=== PATIENT | male | born 1970 | race Caucasian/White ===

== ENCOUNTER 2022-01-27 08:44 | Inpatient (IN) | payer MEDICARE, SELFPAY ==
[2022-01-27] VITALS (145 sets, daily range): BP systolic 144–251; BP diastolic 77–156; PULSE 80–115; RESP 15–29; TEMP 36.5–36.8; O2SAT 89–98; BMI 27.1
--- NOTE | 2022-01-27 08:58 | W.ED.NEUROSD ---
HPI - Neuro Symptoms/Deficit General: Chief Complaint: ER Hold Stated Complaint: Weakness, Slurred speech, Unstable Time Seen by Provider: 01/27/22 08:47 Source: patient Mode of arrival: ambulatory Limitations: no limitations History of Present Illness: 51-year-old male presents emergency room he is concerned that his stroke is reporting weakness in his left side and some tremors and shaking additionally states he 7 difficulty with word finding. Began yesterday at around 5:30 PM his is concerned is persistent he feels like is actually improved some. On initial exam his stroke score at best is 2 giving him a point for some very slight movement in his right arm with evaluation for arm drift and the report by his that he is still slurring his speech some. The remainder of his exam is normal and there is no evidence of any focal deficit. He has normal cerebellar function with normal [id number] and rapid alternating movements, normal visual pham sensation etc. Patient denies any recent new medications he is on no prescription medications but is on multiple self prescribed nutraceutical medications. Onset (ago): hour(s) Time: 08:44 Last Observed Normal: 17:30 Timing confirmed by: spouse Location: speech, right arm and right leg Severity: mild Quality: numb and tingling Relieving factors: none Exacerbating factors: none Context: gradual onset Associated symptoms: Reports weakness; Deny chest pain, cough, diaphoresis, fevers/chills, headache(s), anorexia, malaise, nausea, seizures, syncope, tingling, vertigo or vomiting Treatments Prior to Arrival: none Review of Systems Const: Denies: fever(s), chills, fatigue, malaise or diaphoresis ENMT: Denies: throat pain, ear or mastoid pain, nasal discharge or nasal congestion Card: Denies: chest pain, palpitations, irregular heart rhythm or syncope Resp: Denies: dyspnea, productive cough or non-productive cough GI: Denies: nausea or vomiting : Denies: flank pain, dysuria, urinary frequency or urinary urgency Skin/Breast: Denies: rash or pruritus Neuro: Denies: headache(s) or vertigo [facility] ED PFSH: Medical History Hypertension Family History Other Hypertension Social History Smoking and tobacco status: never smoked Alcohol intake: never NIH stroke score NIHSS: Level Of Consciousness - 1a: 0 Level Of Consciousness Questions - 1b: Both Correct Level Of Consciousness Commands - 1c: Both Correct Best Gaze - 2: Normal Visual Pham - 3: No Visual Loss Facial Palsy - 4: Normal Motor Arm Right - 5: No Drift Motor Arm Left - 5: No Drift Motor Leg Right - 6: No Drift Motor Leg Left - 6: No Drift Limb Ataxia - 7: Absent Sensory - 8: Mild To Moderate Loss Best Language - 9: No Aphasia Dysarthia - 10: Mild/Moderate Dysarthia Extinction And Inattention - 11: 0 Score: Total Score: 2 Physical Exam Const: COMMON NORMALS: no acute distress GENERAL APPEARANCE: cooperative and comfortable ORIENTATION/CONSCIOUSNESS: Yes awake, Yes oriented to person, Yes oriented to place and Yes oriented to time HENMT: COMMON NORMALS: normocephalic, atraumatic, hearing grossly normal bilaterally, external ears normal, EAC's normal, TM's normal bilaterally, Normal nasal mucous membranes and turbinates present, moist oral mucous membranes and oropharynx normal HEAD & SCALP: normocephalic and atraumatic NOSE: Normal nasal mucous membranes and turbinates present EXTERNAL EAR: Yes external ears normal EXTERNAL AUDITORY CANAL: EAC's normal TYMPANIC MEMBRANE: TM's normal bilaterally Eye: COMMON NORMALS: Equal, round and reactive pupils present, EOMs intact bilaterally, conjunctivae normal and no scleral icterus CONJUNCTIVA: Yes conjunctivae normal PUPIL: Yes Equal, round and reactive pupils present Neck/C-Spine: COMMON NORMALS: full ROM, no lymphadenopathy, supple and no JVD Lymph: LYMPHATIC: no lymphadenopathy noted and no lymphedema noted Resp: COMMON NORMALS: normal respiratory effort, No retractions, No use of accessory muscles and clear to auscultation bilaterally AUSCULTATION: clear to auscultation bilaterally Cardio: COMMON NORMALS: no JVD, regular rate, regular rhythm and No murmurs present (Cardio) RATE: regular rate RHYTHM: regular rhythm GI: COMMON NORMALS: Soft to palpation and No hepatosplenomegaly present AUSCULTATION: Yes normoactive bowel sounds PALPATION: Yes Soft to palpation, No Tenderness to palpation present (GI), No Guarding due to palpation present (GI) and Yes No hepatosplenomegaly present Extremity: COMMON NORMALS: normal to inspection, capillary refill normal, no clubbing, cyanosis or edema, no calf tenderness and no pedal edema Neuro: SENSORIUM/ORIENTATION: Yes oriented to person, Yes oriented to place and Yes oriented to time Skin: COMMON NORMALS: no rashes or lesions noted GENERAL SKIN EXAM: no rashes or lesions noted Course Vital Signs: Vital signs: Vital Signs Temperature 97.7 F 01/27/22 08:51 Pulse Rate 82 01/27/22 14:39 Respiratory Rate 28 H 01/27/22 14:15 Blood Pressure 178/96 01/27/22 14:39 Pulse Oximetry 93 01/27/22 14:15 Oxygen Delivery Me thod 01/27/22 08:51 MDM - Neuro Symptoms/Deficit Medical Decision Making Clinical I do not believe this patient is obstructed an incidental finding with looks like a calcified hemangioma I do not think is related to his symptoms. Discussed at length with neurology on-call for Elyssa as well as with radiology we all agree. I think he is having*his symptoms from his acute renal failure. This is new near as I can tell his renal function has been normal in the past per his report as well as that of his 's. His blood pressure is also markedly elevated we did start him on nicardipine which improved his blood pressure but was not well controlled while in the emergency room did have discussed with nephrology and hospitalist services as well as on-call doctor for Elyssa Lal. Elyssa did not feel any further evaluation needed to be done emergently. Patient be admitted to the ICU for accelerated blood pressure and acute renal failure Medical Records I reviewed the patient's medical records. Lab Data I reviewed the patient's lab results. : 01/27/22 09:29 01/27/22 09:[address] 01/27/22 08:59 IMPRESSION: 1. Mixed density anterior LEFT parasagittal mass measures 2.9 x 2.5 cm and extends over length of 2.8 cm. Increased density is probably calcification within a meningioma. Favor this is an extra-axial mass. No edema within the adjacent brain or sulcal effacement. Recommend follow-up MRI brain with and without contrast to better evaluate for a dural tail and extra-axial position. 2. Mild small vessel ischemic disease. Laboratory Results WBC 10.8 10^3/uL (4.0-10.0) H 01/27/22 09: RBC 3.82 10^6/uL (4.1-5.3) L 01/27/22 09: Hgb 11.1 g/dL (11.7-16.6) L 01/27/22 09: Hct 33.0 % (42.0-52.0) L 01/27/22 09: MCV 86.4 fl (80-94) 01/27/22 09: MCH 29.1 pg (28.0-34.0) 01/27/22 09: MCHC 33.6 g/dL (30.0-36.0) 01/27/22: RDW 14.1 % (12.1-15.1) 01/27/22: Plt Count 184 10^3/cmm (130-400) 01/27/22 09: MPV 10.1 fL (7.4-10.4) 01/27/22 09: Neut % (Auto) 85.7 % 01/27/22 09: Lymph % (Auto) 7.2 % 01/27/22: King % (Auto) 5.5 % 01/27/22 09: Eos % (Auto) 0.7 % 01/27/22: Baso % (Auto) 0.4 % 01/27/22: Neut # (Auto) 9.23 10^3/uL (1.8-7.7) H 01/27/22 09: Lymph # (Auto) 0.8 10^3/uL (0.8-4.8) 01/27/22 09: King # (Auto) 0.6 10^3/uL (0.2-0.9) 01/27/22: Eos # (Auto) 0.1 10^3/uL (0.0-0.8) 01/27/22 09: Baso # (Auto) 0.0 10^3/uL (0.0-0.1) 01/27/22 09: Nucleated RBC % (auto) 0 % 01/27/22 09:29 Nucleated RBCs # 0.0 /100WBC 01/27/22 09:29 PT 13.90 SECONDS (12.1-14.9) 01/27/22 09:29 INR 1.04 (0.8-1.2) 01/27/22 09:29 APTT 29.0 SECONDS (23.9-36.7) 01/27/22 09:29 Sodium 138 mmol/L (136-145) 01/27/22 09:29 Potassium 3.5 mmol/L (3.5-5.1) 01/27/22 09:29 Chloride 99 mmol/L (98-107) 01/27/22 09:29 Carbon Dioxide 22 mmol/L (22-29) 01/27/22 09:29 Anion Gap 20.5 (5-19) H 01/27/22 09:29 BUN 72 mg/dL (6-20) H 01/27/22 09:29 Creatinine 6.7 mg/dL (0.7-1.2) H* 01/27/22 09:29 GFR Calculation 8.7 mL/min (90-130) L 01/27/22 09:29 Glucose 107 mg/dL (65-115) 01/27/22 09: POC Glucose 107 mg/dL (70-110) 01/27/22 09:07 Calculated Osmolality 308 mOsm/kg (285-295) H 01/27/22 09:29 Calcium 9.0 mg/dL (8.5-10.5) 01/27/22 09:29 Phosphorus 5.6 mg/dL (2.5-4.5) H 01/27/22 09:27 Total Bilirubin 0.5 mg/dL (0.15-1.2) 01/27/22 09:29 AST 20 U/L (0-40) 01/27/22 09:29 ALT 17 U/L (0-41) 01/27/22 09:29 Alkaline Phosphatase 118 U/L (40-130) 01/27/22 09:29 Creatine Kinase 173 U/L (39-308) 01/27/22 09:29 Total Protein 6.7 g/dL (6.6-8.7) 01/27/22 09:29 Albumin 3.8 g/dL (3.5-5.2) 01/27/22 09:29 Globulin 2.9 g/dL (1.3-4.6) 01/27/22 09:29 TSH 2.39 uIU/mL (0.27-4.20) 01/27/22 09:24 Urine Color Yellow (Yellow) 01/27/22 11:14 Urine Appearance Clear (CLEAR) 01/27/22 11:14 Urine pH 6 (5-7) 01/27/22 11:14 Ur Specific [place] 1.010 (1.005-1.030) 01/27/22 11:14 Urine Protein 3+ (Negative) H 01/27/22 11:14 Urine Glucose (UA) Norm (Normal) 01/27/22 11:14 Urine Ketones 1+ (Negative) H 01/27/22 11:14 Urine Blood 2+ (Negative) H 01/27/22 11:14 Urine Nitrate Negative (Negative) 01/27/22 11:14 Urine Bilirubin Neg (Negative) 01/27/22 11:14 Urine Urobilinogen Norm mg/dL (Negative) 01/27/22 11:14 Ur Leukocyte Esterase Negative (Negative) 01/27/22 11:14 Urine RBC 0-4 /hpf (0-2) H 01/27/22 11:14 Urine WBC 0-4 /hpf (0-5) H 01/27/22 11:14 Ur Squamous Epith Cells 0-4 /hpf (0-5) H 01/27/22 11:14 Amorphous Sediment Not Reportable 01/27/22 11:14 Urine Bacteria None /hpf (NONE) 01/27/22 11:14 Urine Opiates Screen Negative ng/mL (Negative) 01/27/22 11:14 Ur Barbiturates Screen Negative ng/mL (Negative) 01/27/22 11:14 Ur Phencyclidine Scrn Negative ng/mL (Negative) 01/27/22 11:14 Ur Amphetamines Screen Negative ng/mL (Negative) 01/27/22 11:14 U Benzodiazepines Scrn Negative ng/mL (Negative) 01/27/22 11:14 Urine Cocaine Screen Negative ng/mL (Negative) 01/27/22 11:14 U Marijuana (THC) Screen Negative ng/mL (Negative) 01/27/22 11:14 Complement C3 104 mg/dL (90-180) 09/02/22 09:27 Complement C4 26 mg/dL (10-40) 01/27/22 09:27 Discharge Plan Discharge Patient Disposition: Admitted As Inpatient Admit Provider: Santi Altamirano Clinical Impression: KEL (acute kidney injury), Accelerated hypertension Condition: Stable Coding Level of Care Code ED Meat Stocker for Chg Fwd Exam Comprehensive
--- NOTE | 2022-01-27 08:59 | CT_ITS ---
WS: [id number] CT HEAD NONCONTRAST HISTORY: Symptoms of Acute Stroke TECHNIQUE: Contiguous axial imaging performed through the brain in 2.5 mm imaging. Bone and soft tiss ue windows. Sagittal and coronal reformats reviewed. All CT scans at [facility] use at least one of these dose optimization techniques: automated exposure control; mA and/or kV adjustment per pa tient size (includes targeted exams where dose is matched to clinical indication); or iterative recon struction. DLP: 1030.88 mGy.cm COMPARISON: None available. Well-circumscribed mass of increased density noted in the anterior LEFT parasagittal region. This is a mixed density with mass with areas of marked increased density which is probably calcification and not likely hemorrhage. There is no edema within the adjacent brain or midline shift. This mass is luz tered just to the LEFT of the interhemispheric falx measuring 2.9 x 2.5 cm and extends over a length of 2.8 cm. Favor this is an extra-axial mass which crosses the anterior interhemispheric falx into th e RIGHT brain. There is a small CSF cleft also supporting extra-axial mass. No dural tail is identifi ed. Again no adjacent edema. No prior infarct. Scattered foci of decreased attenuation in periventricular distribution from small vessel ischemic disease. Ventricles: Normal size with no hydrocephalus. No inferior displacement of the cerebellar tonsils. Paranasal sinuses: As visualized are clear. Mastoid air cells: Well pneumatized. Calvarium and scalp: Skull is intact with no soft tissue edema or swelling. CT/CT head wo con* [id number] IMPRESSION: 1. Mixed density anterior LEFT parasagittal mass measures 2.9 x 2.5 cm and ext ends over length of 2.8 cm. Increased density is probably calcification within a meningioma. Favor this is an extra-axial mass. No edema within the adjacent b rain or sulcal effacement. Recommend follow-up MRI brain with and without contr ast to better evaluate for a dural tail and extra-axial position. 2. Mild small vessel ischemic disease.
[2022-01-27 09:11] LABS: Glucose Point of Care 107 mg/dL (70-110)
[2022-01-27] MEDS: nicardipine 20 MG/200 ML PREMIX 50 MG IV (09:29)
--- NOTE | 2022-01-27 09:37 | ECG_ITS ---
[facility] Test Date: 2022-01-27 Pat Name: Greg Hong Department: Room: Gender: Male Tunneller: : 1970 Requested By: Luke Simmons Order Number: [id number] Elpidio MD: Conchita Crowley M.D. Measurements Intervals [place] Rate: 103 P: 57 HI: 140 QRS: 38 QRSD: 110 T: 80 QT: 391 QTc: 514 Interpretive Statements SINUS TACHYCARDIA LEFT ATRIAL ENLARGEMENT [-0.15mV P-WAVE IN V1/V2] NONSPECIFIC ST & T-WAVE ABNORMALITY No previous ECG available for comparison Electronically Signed On 01-27-2022 15:40:02 CDT by Conchita Crowley M.D. [email or web address]
[2022-01-27 09:41] LABS: Basophils % 0.4 %; Eosinophils # 0.1 10^3/uL (0.0-0.8); Eosinophils % 0.7 %; Hemoglobin 11.1 g/dL (11.7-16.6); Lymphocytes # 0.8 10^3/uL (0.8-4.8); Lymphocytes % 7.2 %; Mean Corpuscular HGB Conc 33.6 g/dL (30.0-36.0); Mean Corpuscular Hemoglobin 29.1 pg (28.0-34.0); Mean Corpuscular Volume 86.4 fl (80-94); Mean Platelet Volume 10.1 fL (7.4-10.4); Monocytes # 0.6 10^3/uL (0.2-0.9); Monocytes % 5.5 %; Neutrophils # 9.23 10^3/uL (1.8-7.7); Neutrophils % 85.7 %; Nucleated Red Blood Cells % 0 %; Platelet Count 184 10^3/cmm (130-400); Red Blood Count 3.82 10^6/uL (4.1-5.3); Red Cell Distribution Width 14.1 % (12.1-15.1); White Blood Count 10.8 10^3/uL (4.0-10.0)
[2022-01-27 09:56] LABS: INR 1.04 (0.8-1.2)
[2022-01-27 10:05] LABS: Alanine Aminotransferase 17 U/L (0-41); Albumin Level 3.8 g/dL (3.5-5.2); Alkaline Phosphatase 118 U/L (40-130); Anion Gap 20.5 (5-19); Aspartate Amino Transferase 20 U/L (0-40); Blood Urea Nitrogen 72 mg/dL (6-20); Carbon Dioxide 22 mmol/L (22-29); Chloride 99 mmol/L (98-107); Globulin 2.9 g/dL (1.3-4.6); Glomerular Filtration Rate 8.7 mL/min (90-130); Glucose 107 mg/dL (65-115); Osmolality Calculated 308 mOsm/kg (285-295); Potassium 3.5 mmol/L (3.5-5.1); Sodium 138 mmol/L (136-145); Total Bilirubin 0.5 mg/dL (0.15-1.2); Total Protein 6.7 g/dL (6.6-8.7)
[2022-01-27 11:03] LABS: Creatine Phosphokinase 173 U/L (39-308)
[2022-01-27 11:49] LABS: Amphetamines Screen Urine Negative (Negative); Barbiturates Screen Urine Negative (Negative); Benzodiazepines Screen Urine Negative (Negative); Cocaine Screen Urine Negative (Negative); Glucose Urine UA Norm (Normal); Ketones Urine 1+ (Negative); Opiate Screen Urine Negative (Negative); PCP Screen Urine Negative (Negative); Protein Urine 3+ (Negative); THC Screen Urine Negative (Negative); Urine Appearance Clear (CLEAR); Urine Color Yellow (Yellow); pH Urine 6 (5-7)
[2022-01-27 11:50] LABS: Add Urine Culture? No; Add Urine Microscopic? YES; Bilirubin Urine Neg (Negative); Blood Urine 2+ (Negative); Leukocyte Esterase Urine Negative (Negative); Nitrate Urine Negative (Negative); RBC Urine 0-4 /hpf (0-2); Squamous Epithelial Cell Urine 0-4 /hpf (0-5); Urobilinogen Urine Norm (Negative); WBC Urine 0-4 /hpf (0-5)
--- NOTE | 2022-01-27 12:37 | P.HP_ITS ---
Providers/Chief Complaint Admitting Physician: Santi Altamirano MD, Hospitalist. Chief Complaint: Weakness, Slurred speech, Unstable History of Present Illness Greg Hong is a 51 year old male who reports his only past significant his tory is hypertension not being treated that presents to the hospital with fatigue for 2 weeks, some generalized itching and nausea. Last night around 745 his came home and noticed he had some slurred speech, and complained that his right hand and right side were weaker than usual. Patient reports this was going on a little earlier in the day. She reports that when she looked at him this morning it seemed a little worse. He has no prior history of stroke. He has not been ill recently with any fevers. He has been under an incredible amount of stress lately. Both the patient and his deny him having any past history of kidney disease. He reports that he has been urinating normally. He denies any use of any anti-inflammatories. He was able to urinate in the emergency to room, and bladder scan noted only 140 cc of urine left after emptying. He denies any chest pain. He reports no shortness of breath. He has had no obvious seizure activity. In the emergency department a nicardipine drip was initiated. The emergency department visited with [place] neurology regarding probable meningioma, and strokelike symptoms. tPA was not recommended. NIHSS score of 2. Recommended outpatient MRI. Review of Systems General: Reports: 10 or more systems reviewed and unremarkable except in HPI and below Const: Reports: fatigue and malaise; Denies: fever(s) Eyes: Denies: change in vision ENMT: Denies: throat pain Card: Denies: chest pain Resp: Denies: dyspnea GI: Reports: nausea; Denies: abdominal pain, vomiting, hematochezia or melena : Denies: flank pain or difficulty urinating Musc: Denies: neck pain Skin/Breast: Denies: rash Neuro: Reports: weakness in extremities, lack of coordination, difficulty walking and Slurred speech present; Denies: headache(s) Psych: Reports: sleeping less; Denies: anxiety or depression Endo: Denies: polyuria Lloyd/Lymph: Denies: easy bruising All/Imm: Denies: urticaria Medications/Allergies Home Medications Medication Instructions Recorded Confirmed Last Taken Type ascorbic acid (vitamin C) 1,000 mg 500 mg PO BID 01/27/22 01/27/22 Unknown History tablet (Vitamin C) astaxanthin 4 mg capsule 4 mg PO DAILY 01/27/22 01/27/22 Unknown History cholecalciferol (vitamin D3) 50 50 mcg PO DAILY 01/27/22 01/27/22 Unknown History mcg (2,000 unit) capsule (Vitamin D3) vitamin K2 40 mcg tablet 80 mcg PO DAILY 01/27/22 01/27/22 Unknown History Allergies Allergy/AdvReac Type Severity Reaction Status Date / Time No Known Allergies Allergy Verified 01/27/22 09:31 PFSH Acute PFSH: Medical History (Updated 01/27/22 @ 12:56 by Santi Altamirano MD) Hypertension Family History (Updated 01/27/22 @ 12:41 by Santi Altamirano MD) Other Hypertension Social History Smoking and tobacco status: never smoked Alcohol intake: never Other PFSH information: Supplemental PFSH Information: Denies any prior history of surgery Vitals/I&O/Wt Last Vital Signs Temp 97.7 F 01/27/22 08:51 Pulse 102 H 01/27/22 11:05 Resp 22 H 01/27/22 11:05 BP 201/117 01/27/22 11:05 Pulse Ox 93 01/27/22 11:05 O2 Del Method 01/27/22 08:51 01/26/22 01/27/22 01/27/22 22:59 06:59 14:59 Intake Total 142.500 / 142.500 Balance 142.500 / 142.500 Weight last 48 hrs Weight 93.44 kg Physical Exam Narrative: General exam is a male, no apparent distress, with slurred speech. Neurologic: Slight right facial droop. Slurred speech but quick conversationalist. Right upper extremity slightly clumsy. Difficult to detect any right lower extremity weakness. No obvious cerebellar signs. See neurologic exam done by emergency department physician. No changes from this. HEENT: Atraumatic normocephalic. Pupils equally round. Oropharynx clear. Neck is supple no lymphadenopathy or thyromegaly Cardiovascular regular rate and rhythm, no murmur. S4 is noted. Lungs clear no wheezing or crackles Abdomen is soft nontender positive bowel sounds. No obvious organomegaly exams deferred Extremities no cyanosis clubbing or edema, cap refill brisk. Skin no rash Data : 01/27/22 09:29 01/27/22 09:29 Other Labs: INR 1.04 LFTs normal Calcium 9.0 Urinalysis with 0-4 reds and 0-4 whites. 3+ protein is noted. Urine drug screen is negative Head CT demonstrates a 2.9 x 2.5 cm left parasagittal mass with calcification that is likely a meningioma. No edema is present surrounding this. EKG demonstrates normal sinus rhythm, normal axis, nonspecific ST-T wave sharon nges. Possible left atrial enlargement is noted. A&P Assessment and plan (1) CVA (cerebral vascular accident): Patient presents with symptomatology consistent with CVA. At this point not a candidate to have gadolinium with MRI, nor CTA. Check carotid ultrasound ST/OT/PT consultations Aspirin 81 mg daily. Consider addition of Plavix as well Initiate statin Lipid profile tomorrow Check echocardiogram Check TSH Lipid profile in the morning It is not ideal to lower blood pressure in face of acute CVA, but considering d egree of acute renal failure, have elected to cautiously lower blood pressure with nicardipine as initiated by the emergency department. Not to lower less than 180 systolic. Status: Acute (2) KEL (acute kidney injury): Appears to have renal failure. This appears to be acute kidney injury. Check spot urine protein and creatinine Note that urinalysis have 3+ protein but no significant hematuria Nephrology consultation Hydration with normal saline at 100 cc an hour Renal ultrasound Initial bladder scan after urination demonstrated only 140 cc. Doubt obstruction but renal ultrasound will delineate further Check CK Status: Acute (3) Accelerated hypertension: Placed on nicardipine in the emergency department. Blood pressures were excessively high and there was concern of hypertensive emergency. Continue nicardipine at this time, but avoid any lowering of blood pressure less than 180. Status: Acute (4) Brain mass: This appears to be an incidental finding at this time. There is no evidence of surrounding edema and it is calcified. Location does not seem to explain right hand weakness. Monitor for any seizure activity MRI to delineate further. Hopefully this can be done with and without contrast if renal function improves. If not we will need to proceed without contrast. Status: Acute Plan Full code Heparin subcutaneous for DVT prophylaxis Attestations Medical Necessity Statement*: Will require greater than 2 midnight stay for evaluation and treatment of CVA, severe acute kidney injury, brain mass, hypertensive emergency Critical Care Time: The high probability of a clinically significant, sudden or life threatening deterioration of the patient's [cardiac, renal, neurologic] system(s) required my full and direct attention, intervention and personal management. The critical care time is as shown. This time is in addition to time spent performing any reported procedures but includes the following: [x] Data and vital sign review and interpretation [x] Patient assessment, examination and intervention [x] Documentation [x] Medication orders and management Critical Care Time (min): 65 Coding Level of Care Code Acute Complaints Coordinator for [facility] Fwd Diagnoses CVA (cerebral vascular accident) I63.9 KEL (acute kidney injury) N17.9 Accelerated hypertension I10 Brain mass G93.89
--- NOTE | 2022-01-27 12:38 | US_ITS ---
WS: [id number] RENAL ULTRASOUND HISTORY: renal failure COMPARISON: None available. TECHNIQUE: 2-D and color Doppler imaging of the kidney submitted. Right kidney: 9.0 cm x 6.1 cm x 4.3 cm. Low normal size kidney. Very echogenic kidney with loss of the normal cortical medullary differentiat ion. No hydronephrosis and no mass identified. Left kidney: 10.3 cm x 5.2 cm x 4.5 cm. Normal size kidney with marked increased echogenicity and poor cortical medullary differentiation. No mass identified. No hydronephrosis. Aorta: Poorly visualized. Urinary Bladder: Minimal distention. No intraluminal filling defect. US/US renal BI* [id number] IMPRESSION: Severe bilateral chronic medical renal disease. No obstruction.
--- NOTE | 2022-01-27 12:47 | USCV_ITS ---
GelyJe owensin Age: 51 Gender: M : 1970 Exam Date: 01/27/2022 13:56 Ordering Phys: Santi Altamirano MD Technologist: Bo Kirk [place] [facility] [place]: CVA Risk Factors: None Previous Vascular Surgery: Right Brachial BP: / Left Brachial BP: / Right Left Velocity (cm/s) Spectral Plaque Velocity (cm/s) Spectral Plaque Syst/Diast Broadening Syst/Diast Broadening 101.40/13.20 Prox CCA 99.40 / 15.50 81.60/ 11.00 Mid CCA 91.70 / 20.20 78.30/ 13.20 Distal CCA 101.00/ 26.40 102.50/15.80 Prox ICA 75.20 / 19.70 148.60/22.30 Mid ICA 85.40 / 21.40 117.00/21.00 Distal ICA 106.80/ 31.60 159.10 ECA 174.00 1.46 ICA/CCA 1.06 Antegrade Vertebral Antegrade 97.30/ 18.40 cm/s 85.40/ 16.20 cm/s Tri Subclavian Tri 180.2 157.8 0 0 FINDINGS Comparison: none available. Mixture of mild calcified and noncalcified plaque in the bifurcations. Mild elevation of velocity right ICA. Antegrade vertebral arteries. CONCLUSIONS Bilateral ICA stenosis less than 50%. Mild carotid atherosclerosis. Dr. Goldie Cooper DO (Electronically Signed) Final Date: 27 January 2022 16:00 S
--- NOTE | 2022-01-27 12:54 | USCV_ITS ---
Greg Hong Age: 51 Gender: M : 1970 Exam Date: 01/27/2022 13:43 Ordering Phys: Santi Altamirano MD Technologist: Bo Kirk Exam Location: [facility] [place] Indication: CVA BP: 166 / 93 HR: 95 Rhythm: Sinus Technical Quality: Adequate MEASUREMENTS (Male / Female) Normal Values 2D ECHO LV Diastolic Diameter PLAX 4.5 cm 4.2 - 5.9 / 3.9 - 5.3 cm LV Systolic Diameter PLAX 3.0 cm IVS Diastolic Thickness 2.1 cm 0.6 - 1.0 / 0.6 - 0.9 cm IVS Systolic Thickness 2.5 cm LVPW Diastolic Thickness 1.7 cm 0.6 - 1.0 / 0.6 - 0.9 cm LVPW Systolic Thickness 2.4 cm LVOT Diameter 2.0 cm LV Ejection Fraction 2D Teich 61.8 % LV Ejection Fraction MOD 2C 57.4 % LV Ejection Fraction 2C AL 58.3 % LA Diameter 4.8 cm IVC Diameter 2.0 cm M-MODE Aortic Annulus Diameter 3.2 cm LA Ao Ratio MM 1.4 MV E Point Septal Separation 1.2 cm DOPPLER AV Peak Velocity 191.0 cm/s LVOT Peak Velocity 131.0 cm/s AV Area Cont Eq vti 2.4 cm squared AV Area Cont Eq pk 2.2 cm squared MV Area PHT 5.0 cm squared Mitral E to A Ratio 1.3 MV E' Velocity 62.5 cm/s Mitral E to MV E' Ratio 17.8 Mitral E to LV E' Lateral Ratio 15.2 Mitral E to LV E' Septal Ratio 21.7 TR Peak Velocity 124.8 cm/s TR Peak Gradient 6.2 mmHg TV Peak E Velocity 104.0 cm/s Right Atrial Pressure 3.0 mmHg Pulmonary Artery Systolic Pressu 9.2 mmHg PV Peak Velocity 131.0 cm/s FINDINGS Left Ventricle Normal left ventricular size, systolic function and severely wall thickness, with no regional wall motion abnormalities. Left ventricular ejection fraction is estimated at 65 %. Severe concentric left ventricular hypertrophy. Grade II diastolic dysfunction, moderately elevated filling pressures. Right Ventricle Normal right ventricular size and systolic function. Right ventricular systolic pressure 9.2 mmHg. Right Atrium Normal right atrial size. Left Atrium Mildly increased left atrial size. Mitral Valve Mild mitral annular calcification. Mildly thickened mitral valve. No mitral valve stenosis. Trace mitral valve regurgitation. Aortic Valve Structurally normal trileaflet aortic valve. No aortic valve stenosis. No aortic valve regurgitation. Tricuspid Valve Structurally normal tricuspid valve. No tricuspid valve stenosis. [id number] tricuspid valve regurgitation. Pulmonic Valve Structurally normal pulmonic valve. No pulmonary valve stenosis. Trace pulmonary valve regurgitation. Pericardium No pericardial effusion. Aorta Normal size aortic root and proximal ascending aorta. IVC Normal IVC dimension with <50% respiratory change of the inferior vena cava. CONCLUSIONS 1. Normal left ventricular size and systolic function with no regional wall motion abnormalities. Left ventricular ejection fraction is estimated at 65 %. Severe concentric left ventricular hypertrophy. Grade II diastolic dysfunction, moderately elevated filling pressures. 2. Tyoj-[id number] tricuspid valve regurgitation. 3. No prior siilar studies to compare. Georgie Shell MD (Electronically Signed) Final Date: 27 January 2022 17:27 S
--- NOTE | 2022-01-27 13:16 | P.CONIM_ITS ---
Providers/Reason For Consult Consulting Physician/Specialty*: Nadine Garzon DO, telenephrology Reason for Consult*: Acute Kidney Injury Requesting Physician: Santi Altamirano MD Attending Physician: Santi Altamirano MD History of Present Illness History of Present Illness Greg Hong is a 51 year old male presenting with new neurologic complaints, right sided weakness, slurred speach. Found to have severe hypertension and abnormal renal function. Patient and family deny prior knowledge of kidney disease. PMH hypertension, not taking BP medications. No new medications. No NSAIDs. Review of Systems : Denies: difficulty urinating Medications/Allergies Home Medications Medication Instructions Recorded Confirmed Last Taken Type ascorbic acid (vitamin C) 1,000 mg 500 mg PO BID 01/27/22 01/27/22 Unknown History tablet (Vitamin C) astaxanthin 4 mg capsule 4 mg PO DAILY 01/27/22 01/27/22 Unknown History cholecalciferol (vitamin D3) 50 50 mcg PO DAILY 01/27/22 01/27/22 Unknown History mcg (2,000 unit) capsule (Vitamin D3) vitamin K2 40 mcg tablet 80 mcg PO DAILY 01/27/22 01/27/22 Unknown History Allergies Allergy/AdvReac Type Severity Reaction Status Date / Time No Known Allergies Allergy Verified 01/27/22 09:31 Current Medications Generic Name Dose Route Start Last Admin Trade Name Freq PRN Reason Stop Dose Admin Nicardipine/Sodium Chloride 20 mg in 200 mls @ 0 mls/hr 01/27/22 09:30 01/27/22 11:06 Cardene IV 20 mg/hr .Q0M KINGA 200 mls/hr Titration Protocol Per Protocol PFSH Acute PFSH: Medical History Hypertension Family History Other Hypertension Social History Smoking and tobacco status: never smoked Alcohol intake: never Vitals/I&O/Wt Last Vital Signs Temp 97.7 F 01/27/22 08:51 Pulse 102 H 01/27/22 11:05 Resp 22 H 01/27/22 11:05 BP 201/117 01/27/22 11:05 Pulse Ox 93 09/02/22 11:05 O2 Del Method 01/27/22 08:51 01/26/22 01/27/22 01/27/22 22:59 06:59 14:59 Intake Total 142.500 / 142.500 Balance 142.500 / 142.500 Weight last 48 hrs Weight 93.44 kg Physical Exam Const: COMMON NORMALS: no acute distress and alert Extremity: COMMON NORMALS: no pedal edema Neuro: SENSORIUM/ORIENTATION: Yes alert Data : 01/27/22 09:29 01/27/22 09:29 Other Labs: urinalysis 3+ protein, 2+ blood, 0-4 RBC/HPF LFTs normal A&P Assessment and plan (1) KEL (acute kidney injury): Status: Acute Plan seen via telemedicine in ER with assitance of RN at bedside 1. Presumed acute kidney injury (baseline renal function unknown). PVR 141 ml. 2. Malignant hypertension 3. CVA Rec: acute GN workup, CK ordered. Renal ultrasound. Agree with nicardipine gtt, IVF hydration, quantify urine protein excretion. Consult Attestations Medical Necessity Statement: see above Time Spent in Patient Care: 16 - 35 minutes Coding Level of Care Code Acute Fountain Operator for Wilfrid Osorio Diagnoses KEL (acute kidney injury) N17.9
[2022-01-27 13:31] LABS: Thyroid Stimulating Hormone 2.39 uIU/mL (0.27-4.20)
[2022-01-27] MEDS: heparin 5,000 unit/mL INJ 1 mL 5000 UNIT SUBCUT (14:12)
[2022-01-27 14:14] LABS: Complement C3 104 mg/dL (90-180); Creatine Phosphokinase 178 U/L (39-308); Phosphorus 5.6 mg/dL (2.5-4.5)
[2022-01-27] MEDS: nicardipine 20 MG/200 ML PREMIX 200 MG IV (14:34)
[2022-01-27] MEDS: sodium chloride 0.9% 1,000 ML 100 ML IV (14:35)
--- NOTE | 2022-01-27 15:00 | PC.NURSE ---
Pt to unit Pt brought to floor by ER staff. Pt accompanied by his . Pt has right sided weakness in his hand and leg and right facial droop. He is alert and oriented. He has noticeable jerk that is in his left leg. His stated that he was having jerks in his right leg the previous night. Pt is on Cardene at 10. Pt uses cpap at home when he sleeps. Pt oriented to room with call light within reach.
[2022-01-27] MEDS: nicardipine 20 MG/200 ML PREMIX 100 MG IV ×4 (17:12→23:17)
[2022-01-28] VITALS (248 sets, daily range): BP systolic 138–206; BP diastolic 75–128; PULSE 83–119; RESP 10–29; TEMP 36.6–37.3; O2SAT 88–100; BMI 27.1
[2022-01-28] MEDS: sodium chloride 0.9% 1,000 ML 100 ML IV (00:46)
[2022-01-28] MEDS: heparin 5,000 unit/mL INJ 1 mL 5000 UNIT SUBCUT ×2 (00:46→12:16)
[2022-01-28] MEDS: nicardipine 20 MG/200 ML PREMIX 100 MG IV ×4 (00:51→06:49)
[2022-01-28 04:07] LABS: Basophils % 0.3 %; Eosinophils # 0.2 10^3/uL (0.0-0.8); Eosinophils % 1.3 %; Hematocrit 29.1 % (42.0-52.0); Hemoglobin 9.5 g/dL (11.7-16.6); Lymphocytes # 1.2 10^3/uL (0.8-4.8); Lymphocytes % 9.9 %; Mean Corpuscular HGB Conc 32.6 g/dL (30.0-36.0); Mean Corpuscular Hemoglobin 28.7 pg (28.0-34.0); Mean Corpuscular Volume 87.9 fl (80-94); Monocytes % 8.1 %; Neutrophils # 9.47 10^3/uL (1.8-7.7); Neutrophils % 79.9 %; Nucleated Red Blood Cells % 0 %; Platelet Count 177 10^3/cmm (130-400); Red Blood Count 3.31 10^6/uL (4.1-5.3); Red Cell Distribution Width 14.5 % (12.1-15.1); White Blood Count 11.9 10^3/uL (4.0-10.0)
[2022-01-28 04:36] LABS: Alanine Aminotransferase 17 U/L (0-41); Albumin Level 3.6 g/dL (3.5-5.2); Alkaline Phosphatase 103 U/L (40-130); Anion Gap 18.4 (5-19); Aspartate Amino Transferase 27 U/L (0-40); Blood Urea Nitrogen 77 mg/dL (6-20); Calcium 8.2 mg/dL (8.5-10.5); Carbon Dioxide 20 mmol/L (22-29); Chloride 106 mmol/L (98-107); Chol HDL Ratio 4.85 mg/dL (1.0-5.00); Cholesterol 165 mg/dL (0-200); Globulin 2.5 g/dL (1.3-4.6); Glomerular Filtration Rate 8.7 mL/min (90-130); Glucose 112 mg/dL (65-115); HDL Cholesterol 34 mg/dL (60-100); LDL Cholesterol Calculated 113 mg/dL (50-129); LDL HDL Ratio 3.32 RATIO (0.00-3.22); Magnesium 2.3 mg/dL (1.7-2.3); Osmolality Calculated 316 mOsm/kg (285-295); Phosphorus 5.1 mg/dL (2.5-4.5); Potassium 3.4 mmol/L (3.5-5.1); Sodium 141 mmol/L (136-145); Total Bilirubin 0.3 mg/dL (0.15-1.2); Total Protein 6.1 g/dL (6.6-8.7); Triglycerides 91 mg/dL (0-150)
[2022-01-28 04:50] LABS: Estmated Average Glucose 103; Hemoglobin A1C 5.2 % (4.0-6.0)
--- NOTE | 2022-01-28 08:22 | P.PN_ITS ---
Subjective Subjective: Patient was seen and examined this morning, documented urine output around 1000 cc . Deny any sob, chest pain n/v. Medications: Medication Review Details: Generic Name Dose Route Start Last Admin Trade Name Jamari PRN Reason Stop Dose Admin Heparin Sodium (Po rcine) 5,000 unit 01/27/22 13:12 01/28/22 00:46 Heparin 5,000 Un it/Ml Inj 1 Ml SUBCUT 5,000 unit Q12H KINGA Administration Nicardipine/Sodium Chloride 20 mg in 200 mls @ 0 mls/hr 01/27/22 09:30 01/28/22 07:39 Cardene IV 5 mg/hr .Q0M KINGA 50 mls/hr Titration Protocol Per Protocol Sodium Chloride 1,000 mls @ 100 m ls/hr 01/27/22 13:12 01/28/22 00:46 Sodium Chloride 0.9% IV 100 mls/hr .Q10H KINGA Administration Vitals/I&O/Wt Last Vital Signs Temp 98.4 F 01/28/22 05:20 Pulse 91 01/28/22 08:10 Resp 18 01/28/22 08:10 BP 154/85 01/28/22 08:10 Pulse Ox 91 01/28/22 08:10 O2 Del Method 01/28/22 05:20 01/27/22 01/28/22 01/28/22 22:59 06:59 14:59 Intake Total 568.333 / 040.794 1433.334 / 2696.667 73.333 / 73.333 Output Total 600 / 600 100 / 700 Balance -31.667 / 963.855 5010.334 / 1996.667 73.333 / 73.333 Weight last 48 hrs Weight 93.44 kg Weight 93.44 kg Weight 93.44 kg Physical Exam Const: COMMON NORMALS: patient oriented x3 Resp: COMMON NORMALS: normal respiratory effort, No retractions, No use of a ccessory muscles and clear to auscultation bilaterally EFFORT & INSPECTION: Yes symmetric chest movement AUSCULTATION: clear to auscultation bilaterally Cardio: COMMON NORMALS: regular rate, regular rhythm, S1 normal heart sound present, S2 normal heart sound present, No gallops present (Cardio), No murmurs present (Cardio), No rub (Cardio) and Peripheral pulses 2+ throughout RATE: regular rate RHYTHM: regular rhythm HEART SOUNDS: S1 normal heart sound present and S2 normal heart sound present PERIPHERAL PULSES: Peripheral pulses 2+ throughout GI: COMMON NORMALS: Normal to inspection, nondistended, normoactive bowel sounds present, Soft to palpation, non-tender, No hepatosplenomegaly present and no masses AUSCULTATION: Yes normoactive bowel sounds PALPATION: Yes Soft to palpation and Yes No hepatosplenomegaly present RECTAL EXAM: Yes deferred Extremity: COMMON NORMALS: no clubbing, cyanosis or edema and no pedal edema Neuro: COMMON NORMALS: patient oriented x3 Data : 01/28/22 03:40 01/28/22 03:40 A&P Assessment and plan (1) CVA (cerebral vascular accident): Patient presents with symptomatology consistent with CVA. At this point not a candidate to have gadolinium with MRI, nor CTA. Check carotid ultrasound ST/OT/PT consultations Aspirin 81 mg daily. Consider addition of Plavix as well Initiate statin Lipid profile tomorrow Check echocardiogram Check TSH Lipid profile in the morning It is not ideal to lower blood pressure in face of acute CVA, but considering degree of acute renal failure, have elected to cautiously lower blood pressure with nicardipine as initiated by the emergency department. Not to lower less than 180 systolic. Status: Acute (2) KEL (acute kidney injury): Appears to have renal failure. This appears to be acute kidney injury. Check spot urine protein and creatinine Note that urinalysis have 3+ protein but no significant hematuria Nephrology consultation Hydration with normal saline at 100 cc an hour Renal ultrasound Initial bladder scan after urination demonstrated only 140 cc. Doubt obstruction but renal ultrasound will delineate further Check CK Status: Acute (3) Accelerated hypertension: Placed on nicardipine in the emergency department. Blood pressures were excessively high and there was concern of hypertensive emergency. Continue nicardipine at this time, but avoid any lowering of blood pressure less than 180. Status: Acute (4) Brain mass: This appears to be an incidental finding at this time. There is no evidence of surrounding edema and it is calcified. Location does not seem to explain right hand weakness. Monitor for any seizure activity MRI to delineate further. Hopefully this can be done with and without contrast if renal function improves. If not we will need to proceed without contrast. Status: Acute Plan Full code Heparin subcutaneous for DVT prophylaxis Attestations Medical Necessity Statement*: Patient needs to be in hospital for the management of Renal failure. Coding Level of Care Code Acute Teacher Of The Emotionally Disturbed for Chg Fwd Exam Detailed Diagnoses CVA (cerebral vascular accident) I63.9 KEL (acute kidney injury) N17.9 Accelerated hypertension I10 Brain mass G93.89
[2022-01-28] MEDS: aspirin 81 mg EC Tablet PO (09:55)
[2022-01-28] MEDS: atorvastatin 40 mg Tablet PO (09:55)
[2022-01-28 10:02] LABS: PROTEIN, TOTAL 6.3 g/dL (6.1-8.1)
--- NOTE | 2022-01-28 10:57 | P.PN_ITS ---
Subjective Subjective: OOB to chair. + right sided weakness, dysarthria Patient and state he has not seen physician or had blood work in 12 years. Vitals/I&O/Wt Last Vital Signs Temp 98.4 F 01/28/22 05:20 Pulse 97 01/28/22 10:00 Resp 21 H 01/28/22 10:00 BP 162/86 01/28/22 10:00 Pulse Ox 98 01/28/22 10:00 O2 Del Method 01/28/22 08:30 01/27/22 01/28/22 01/28/22 22:59 06:59 14:59 Intake Total 568.333 / 071.443 0079.334 / 2696.667 529.166 / 529.166 Output Total 600 / 600 100 / 700 Balance -31.667 / 533.443 6734.334 / 1996.667 529.166 / 529.166 Weight last 48 hrs Weight 93.44 kg Weight 93.44 kg Weight 93.44 kg Physical Exam Const: COMMON NORMALS: no acute distress and alert Neuro: SENSORIUM/ORIENTATION: Yes alert Data : 01/28/22 03:40 01/28/22 03:40 Other Labs: CK 173, complements normal Ca 8.2, phos 5.1, Mg 2.3 US: Radiologist's impression: Right kidney: 9.0 cm x 6.1 cm x 4.3 cm. Low normal size kidney. Very echogenic kidney with loss of the normal cortical medullary differentiation. No hydronephrosis and no mass identified. Left kidney: 10.3 cm x 5.2 cm x 4.5 cm. Normal size kidney with marked increased echogenicity and poor cortical me dullary differentiation. No mass identified. No hydronephrosis. Aorta: Poorly visualized. Urinary Bladder: Minimal distention. No intraluminal filling defect. IMPRESSION: ? Severe bilateral chronic medical renal disease. No obstruction. A&P Assessment and plan (1) KEL (acute kidney injury): Status: Acute Plan seen via telemedicine in ER with assitance of RN at bedside 1. Originally presumed acute kidney injury (baseline renal function unknown). G iven history and renal ultrasound findings, diagnosis is more likely advanced CKD. Acute GN workup pending 2. Malignant hypertension, improving. Can change to oral antihypertensive. Would hold on giving ACEi or ARB until initiation of dialysis. No need to start dialysis at this time. 3. CVA 4. Hypokalemia - will replace po 5. Hb decreased with hydration. Check iron studies. 6. Mild metabolic acidosis Rec: Greg and his are interested in peritoneal dialysis. If possible, PD catheter could be placed prior to discharge with plan to start PD in next couple of weeks. Attestations Medical Necessity Statement*: see above Time Spent in Patient Care: 16 - 35 minutes Coding Level of Care Code Acute Basketballs And Footballs Reverser for Wilfrid Osorio Diagnoses KEL (acute kidney injury) N17.9
[2022-01-28] MEDS: sodium chloride 0.9% 1,000 ML 40 ML IV (11:27)
[2022-01-28] MEDS: potassium chloride ER 20 mEq Tablet PO (11:28)
--- NOTE | 2022-01-28 11:41 | PC.NURSE ---
Patient has not urinated today, and production shift supervisor nurse reported an output of 100mL. Nurse bladder scanned patient. Shows 500mL retained. Nurse recieved an order from Dr nicole for neri placement if the patient is unable to void. Patient got to the side of the bed and was able to void 100mL. Patient wants to continue to try urinating but will agree to the neri if no progress by after lunch. Patient does not feel any urge to urinate, and does not appear to be in or report any discomfort related to the bladder. bladder is palpable, but not firm. FLuids reduced from 100mL/hr to 40mL.hr per dr nicole orders.
[2022-01-28 17:24] LABS: Urine Creatinine 125 mg/dL (39-259)
[2022-01-28 17:39] LABS: Urine Protein Random 437 mg/dL
--- NOTE | 2022-01-28 18:53 | PC.NURSE ---
Shift Summary: Uneventful shift. Patient was frequently up tp a chair, or ambulating in room when going to the rest room. Still has right side deficits, but they are improved compared to this morning (Refer to NIHSS in electronic charting). Has remained alert to person, place, time, and situation. Patient was retaining urine and a neri was placed today. Total urine output on hollie shift 01/28/2022 is 675 mL (0.60 mL/kg/hr).
[2022-01-28] MEDS: hyDRALAzine 25 mg Tablet PO (19:09)
[2022-01-28] MEDS: amlodipine 10 mg Tablet PO (19:09)
[2022-01-28] MEDS: labetalol 5 mg/mL SDV 20mL 10 MG IVP (22:12)
[2022-01-29] VITALS (46 sets, daily range): BP systolic 175–213; BP diastolic 100–130; PULSE 84–103; RESP 17–28; TEMP 36.9–37.1; O2SAT 87–100
[2022-01-29] MEDS: heparin 5,000 unit/mL INJ 1 mL 5000 UNIT SUBCUT ×2 (00:29→14:18)
[2022-01-29] MEDS: labetalol 5 mg/mL SDV 20mL 10 MG IVP ×2 (00:54→11:48)
[2022-01-29] MEDS: FUROsemide 10 mg/mL SDV 4mL 20 MG IVP (01:53)
[2022-01-29] MEDS: potassium chloride ER 20 mEq Tablet 40 MEQ PO (01:55)
[2022-01-29] MEDS: labetalol 5 mg/mL SDV 20mL 20 MG IVP (04:41)
[2022-01-29 05:02] LABS: Basophils # 0.1 10^3/uL (0.0-0.1); Basophils % 0.5 %; Eosinophils # 0.4 10^3/uL (0.0-0.8); Hemoglobin 10.2 g/dL (11.7-16.6); Lymphocytes % 8.1 %; Mean Corpuscular HGB Conc 31.9 g/dL (30.0-36.0); Mean Corpuscular Hemoglobin 28.7 pg (28.0-34.0); Mean Corpuscular Volume 90.1 fl (80-94); Mean Platelet Volume 10.3 fL (7.4-10.4); Monocytes # 0.8 10^3/uL (0.2-0.9); Monocytes % 6.3 %; Neutrophils # 10.45 10^3/uL (1.8-7.7); Neutrophils % 81.7 %; Nucleated Red Blood Cells % 0 %; Platelet Count 198 10^3/cmm (130-400); Red Blood Count 3.55 10^6/uL (4.1-5.3); Red Cell Distribution Width 14.6 % (12.1-15.1); White Blood Count 12.8 10^3/uL (4.0-10.0)
--- NOTE | 2022-01-29 05:06 | PC.NURSE ---
Physician Communication At 2130, patient's blood pressure 206/124 with past systolic blood pressures maintaining in the 200s. PO hydralazine and PO amlodipine administered per JUL previously. Dr. Garcia contacted and order received for 10 mg labetalol IVP for systolic >200, diastolic >110 and to discontinue maintenance fluids. At 0100, patient's systolic blood pressure still maintaining in the 200s, with a current BP of 207/118. Dr. Garcia contacted, order received to repeat the PRN dose once now. At 0141, patient complaining of shortness of breath. Upon assessment, crackles auscultated in bilateral lung bases and trace edema found in all 4 limbs. Oxygen saturations maintaining in the mid to high 90s, other vitals besides BP stable. Current blood pressure 204/122. Dr. Garcia contacted and order received for 20mg lasix IVP once in addition to 40 meq KCL PO once. Medications administered per JUL. At 0415, patient's blood pressure 213/124, Dr. Garcia notified. Order received for for 20 mg labetalol IVP once now. All medications administered per JUL.
[2022-01-29 05:40] LABS: Alanine Aminotransferase 18 U/L (0-41); Albumin Level 3.8 g/dL (3.5-5.2); Alkaline Phosphatase 108 U/L (40-130); Anion Gap 17.3 (5-19); Aspartate Amino Transferase 30 U/L (0-40); Blood Urea Nitrogen 79 mg/dL (6-20); Calcium 8.8 mg/dL (8.5-10.5); Carbon Dioxide 22 mmol/L (22-29); Chloride 107 mmol/L (98-107); Ferritin 384 ng/mL (30-400); Globulin 2.9 g/dL (1.3-4.6); Glomerular Filtration Rate 7.9 mL/min (90-130); Glucose 93 mg/dL (65-115); Iron 45 ug/dL (59-158); Osmolality Calculated 317 mOsm/kg (285-295); Percent Saturation 21.8 % (20-50); Potassium 4.3 mmol/L (3.5-5.1); Sodium 142 mmol/L (136-145); Total Bilirubin 0.3 mg/dL (0.15-1.2); Total Iron Binding Capacity 206 mcg/dl; Total Protein 6.7 g/dL (6.6-8.7); Unsaturated Iron Binding 161 ug/dL (112-347)
[2022-01-29] MEDS: NIFEdipine ER (24 hr) 30 mg Tablet 60 MG PO (08:12)
[2022-01-29] MEDS: atorvastatin 40 mg Tablet PO (08:12)
[2022-01-29] MEDS: hyDRALAzine 50 mg Tablet PO ×3 (08:12→20:06)
[2022-01-29] MEDS: aspirin 81 mg EC Tablet PO (08:12)
--- NOTE | 2022-01-29 09:56 | PC.NURSE ---
up in room at this family at bedside , monitor blood pressure after po meds this am
--- NOTE | 2022-01-29 10:22 | PM.PN ---
Subjective Subjective: no new complaints. OOB to chair. is concerned he is unable to go up stairs, will be unable to work due to dominant arm weakness. States he does not have healthcare insurance Medications: Medication Review Details: now on nifedipine and hydralazine Vitals/I&O/Wt Last Vital Signs Temp 98.4 F 01/29/22 04:00 Pulse 92 01/29/22 10:00 Resp 19 H 01/29/22 07:15 BP 198/105 01/29/22 10:00 Pulse Ox 100 01/29/22 10:00 O2 Del Method 01/29/22 04:00 01/28/22 01/29/22 01/29/22 22:59 06:59 14:59 Intake Total 822 / 2991.166 90 / 90 Output Total 575 / 675 1475 / 2150 Balance 247 / 2316.166 -1475 / 841.166 90 / 90 Weight last 48 hrs Weight 100.788 kg Weight 93.44 kg Weight 93.44 kg Physical Exam Urinary Catheter Management: Neri: Cath Placed During This Visit: yes Reason for Continuing Indwelling Catheter: Accurate Measurement of Urinary Output in Critically Ill Patients Urinary Catheter Date of Insertion: 01/28/22 Urinary Catheter Time of Insertion: 15:03 Data : 01/29/22 03:35 01/29/22 03:35 Other Labs: TSAT 22%, SF 384, urine protein/Cr ratio 3496 mg/g A&P Assessment and plan (1) KEL (acute kidney injury): Status: Acute Plan seen via telemedicine in ER with assitance of RN at bedside 1. Originally presumed acute kidney injury (baseline renal function unknown). Given history and renal ultrasound findings, diagnosis is more likely advanced CKD. Acute GN workup pending 2. Malignant hypertension, improved. Hold on giving ACEi or ARB until initiation of dialysis. No need to start dialysis at this time. 3. CVA 4. Hypokalemia, resolved 5. Anemia, iron replete 6. Mild metabolic acidosis, resolved Rec: Greg and his are interested in peritoneal dialysis. If possible, PD catheter could be placed prior to discharge with plan to start PD in next couple of weeks. Discontinue neri catheter. SW/regional planner follow-up. Likely needs rehab placement. Attestations Medical Necessity Statement*: see above Time Spent in Patient Care: 16 - 35 minutes Coding Level of Care Code Acute Fishing Vessel Deckhand for Chg Fwd Diagnoses KEL (acute kidney injury) N17.9
--- NOTE | 2022-01-29 13:09 | P.PN_ITS ---
Subjective Subjective: Patient was seen and examined this morning, received labetalol IV overnight, denies any active complaints. Medications: Medication Review Details: Generic Name Dose Route Start Last Admin Trade Name Odellq PRN Reason Stop Dose Admin Aspirin 81 mg 01/28/22 09:00 01/29/22 08:12 Aspirin 81 Mg Ec Tablet PO 81 mg DAILY KINGA Administration Atorvastatin Calci um 40 mg 01/28/22 09:00 01/29/22 08:12 Atorvastatin 40 Mg Tablet PO 40 mg DAILY KINGA Administration Heparin Sodium (Po rcine) 5,000 unit 01/27/22 13:12 01/29/22 00:29 Heparin 5,000 Un it/Ml Inj 1 Ml SUBCUT 5,000 unit Q12H KINGA Administration Hydralazine HCl 50 mg 01/29/22 09:00 01/29/22 08:12 Hydralazine 50 M g Tablet PO 50 mg TID KINGA Administration Labetalol HCl 10 mg 01/28/22 21:32 01/29/22 11:48 Labetalol 5 Mg/M l Sdv 20ml IVP 10 mg Q6H PRN Administration Blood pressure gr eater than 200/ 11 0 Nifedipine 60 mg 01/29/22 08:00 01/29/22 08:12 Nifedipine Er (2 4 Hr) 30 Mg Tablet PO 60 mg DAILY KINGA Administration Vitals/I&O/Wt Last Vital Signs Temp 98.4 F 01/29/22 04:00 Pulse 85 01/29/22 12:00 Resp 22 H 01/29/22 12:00 BP 194/118 01/29/22 12:00 Pulse Ox 93 01/29/22 12:00 O2 Del Method 01/29/22 04:00 01/28/22 01/29/22 01/29/22 22:59 06:59 14:59 Intake Total 822 / 2991.166 90 / 90 Output Total 575 / 675 1475 / 2150 Balance 247 / 2316.166 -1475 / 841.166 90 / 90 Weight last 48 hrs Weight 100.788 kg Weight 93.44 kg Weight 93.44 kg Physical Exam Const: COMMON NORMALS: patient oriented x3 Resp: COMMON NORMALS: normal respiratory effort, No retractions, No use of accessory muscles and clear to auscultation bilaterally EFFORT & INSPECTION: Yes symmetric chest movement AUSCULTATION: clear to auscultation bilaterally Cardio: COMMON NORMALS: regular rate, regular rhythm, S1 normal heart sound pr esent, S2 normal heart sound present, No gallops present (Cardio), No murmurs present (Cardio), No rub (Cardio) and Peripheral pulses 2+ throughout RATE: regular rate RHYTHM: regular rhythm HEART SOUNDS: S1 normal heart sound present and S2 normal heart sound present PERIPHERAL PULSES: Peripheral pulses 2+ throughout GI: COMMON NORMALS: Normal to inspection, nondistended, normoactive bowel sounds present, Soft to palpation, non-tender, No hepatosplenomegaly present and no masses AUSCULTATION: Yes normoactive bowel sounds PALPATION: Yes Soft to palpation and Yes No hepatosplenomegaly present RECTAL EXAM: Yes deferred Extremity: COMMON NORMALS: no clubbing, cyanosis or edema and no pedal edema Neuro: COMMON NORMALS: patient oriented x3 Urinary Catheter Management: Polanco: Cath Placed During This Visit: yes Reason for Continuing Indwelling Catheter: Accurate Measurement of Urinary Output in Critically Ill Patients Urinary Catheter Date of Insertion: 01/28/22 Urinary Catheter Time of Insertion: 15:03 Data : 01/29/22 03:35 01/29/22 03:35 A&P Assessment and plan (1) CVA (cerebral vascular accident): Patient presents with symptomatology consistent with CVA. At this point not a candidate to have gadolinium with MRI, nor CTA. Check carotid ultrasound ST/OT/PT consultations Aspirin 81 mg daily. Consider addition of Plavix as well Initiate statin Lipid profile tomorrow Check echocardiogram Check TSH Lipid profile in the morning It is not ideal to lower blood pressure in face of acute CVA, but considering degree of acute renal failure, have elected to cautiously lower blood pressure with nicardipine as initiated by the emergency department. Not to lower less than 180 systolic. Status: Acute (2) KEL (acute kidney injury): Appears to have renal failure. This appears to be acute kidney injury. Check spot urine protein and creatinine Note that urinalysis have 3+ protein but no significant hematuria Nephrology consultation Hydration with normal saline at 100 cc an hour Renal ultrasound Initial bladder scan after urination demonstrated only 140 cc. Doubt obstruction but renal ultrasound will delineate further Check CK Status: Acute (3) Accelerated hypertension: Placed on nicardipine in the emergency department. Blood pressures were excessively high and there was concern of hypertensive emergency. Continue nicardipine at this time, but avoid any lowering of blood pressure less than 180. Status: Acute (4) Brain mass: This appears to be an incidental finding at this time. There is no evidence of surrounding edema and it is calcified. Location does not seem to explain right hand weakness. Monitor for any seizure activity MRI to delineate further. Hopefully this can be done with and without contrast if renal function improves. If not we will need to proceed without contrast. Status: Acute Plan 51 y Old male with past medical history of hypertension came in with chief complaint of acute onset of right-sided weakness as well as slurred speech, patient was also having generalized fatigue itching and nausea for the last 2 weeks. Currently he is being managed for: Assessment: Acute CVA: CT head wo con: Mixed density anterior LEFT parasagittal mass measures 2.9 x 2.5 cm and extends over length of 2.8 cm. Increased density is probably calcification within a meningioma. Favor this is an extra-axial mass. No edema within the adjacent brain or sulcal effacement. Recommend follow-up MRI brain with and without contrast to better evaluate for a dural tail and extra-axial position. Mild small vessel ischemic disease. CV carotid duplex BI* ?Bilateral ICA stenosis less than 50% 2D echo: Normal left ventricular size and systolic function with no ?regional wall motion abnormalities. Left ventricular ejection ?fraction is estimated at 65 %. Severe concentric left ?ventricular hypertrophy. Grade II diastolic dysfunction, ?moderately elevated filling pressures. [id number] tricuspid valve regurgitation.? No prior siilar studies to compare. CTA head and neck with contrast could not be done: Due to advanced CKD. Lipid panel appreciated. Has been on stroke protocol: Permissive hypertension, PT OT evaluation, speech evaluation Has been on aspirin and statin. KEL on worsening advanced CKD: Likely2/2 uncontrolled hypertension, Acute GN work-up pending Renal ultrasound: Severe bilateral chronic medical renal disease. No obstruction. Current plan is for peritoneal dialysis, patient will need PD catheter placement once he is relatively more stable Surgery will have to be consulted Renal on board Uncontrolled hypertension: Continue Procardia and hydralazine for now. Goal is to slowly titrate the blood pressure down to normal Brain mass: Incidental finding on CT, will need further outpatient work-up Full code Heparin subcutaneous for DVT prophylaxis Attestations Medical Necessity Statement*: Patient is still in hospital for management of acute CVA, advanced CKD. Time Spent in Patient Care: Greater than 35 minutes (>than 50% of time spent in counselling and/or direct pt care on unit) . Critical Care Time: The high probability of a clinically significant, sudden or life threatening deterioration of the patient's [] system(s) required my full and direct attention, intervention and personal management. The critical care time is as shown. This time is in addition to time spent performing any reported procedures but includes the following: [x] Data and vital sign review and interpretation [x] Patient assessment, examination and intervention [x] Documentation [x] Medication orders and management Critical Care Time (min): 30 Coding Level of Care Code Acute Dust Collector Operator for g Fwd Exam Detailed Diagnoses CVA (cerebral vascular accident) I63.9 KEL (acute kidney injury) N17.9 Accelerated hypertension I10 Brain mass G93.89
--- NOTE | 2022-01-29 17:46 | PC.NURSE ---
pt and request that neri be left in as they had to place it for urine retention
[2022-01-30] VITALS (24 sets, daily range): BP systolic 152–193; BP diastolic 70–120; PULSE 78–100; RESP 12–24; TEMP 36.6–37.1; O2SAT 88–100
[2022-01-30] MEDS: heparin 5,000 unit/mL INJ 1 mL 5000 UNIT SUBCUT ×2 (01:04→12:42)
--- NOTE | 2022-01-30 07:08 | P.PN_ITS ---
Subjective Subjective: asymmetrical weakness. poor appetite, SOB, headache. Medications: Reviewed: Yes Medication Review Details: Current Medications Acetaminophen (Acetaminophen 325 Mg Tablet) 650 mg PO Q6H PRN PRN Reason: MILD PAIN Aspirin (Aspirin 81 Mg Ec Tablet) 81 mg PO DAILY [facility] Last Admin: 01/29/22 08:12 Dose: 81 mg Atorvastatin Calcium (Atorvastatin 40 Mg Tablet) 40 mg PO DAILY [facility] Last Admin: 01/29/22 08:12 Dose: 40 mg Heparin Sodium (Porcine) (Heparin 5,000 Unit/Ml Inj 1 Ml) 5,000 unit SUBCUT Q12H [facility] Last Admin: 01/30/22 01:04 Dose: 5,000 unit Hydralazine HCl (Hydralazine 50 Mg Tablet) 50 mg PO TID [facility] Last Admin: 01/29/22 20:06 Dose: 50 mg Labetalol HCl (Labetalol 5 Mg/Ml Sdv 20ml) 10 mg IVP Q6H PRN PRN Reason: Blood pressure greater than 200/ 110 Last Admin: 01/29/22 11:48 Dose: 10 mg Nifedipine (Nifedipine Er (24 Hr) 30 Mg Tablet) 60 mg PO DAILY [facility] Last Admin: 01/29/22 08:12 Dose: 60 mg Ondansetron HCl (Ondansetron 2 Mg/Ml Sdv 2 Ml) 4 mg IVP Q6H PRN PRN Reason: NAUSEA AND VOMITING Vitals/I&O/Wt Last Vital Signs Temp 98 F 01/30/22 03:37 Pulse 86 01/30/22 05:32 Resp 12 01/30/22 03:37 BP 186/113 01/30/22 03:37 Pulse Ox 94 01/30/22 03:37 O2 Del Method 01/30/22 03:37 01/29/22 01/30/22 01/30/22 22:59 06:59 14:59 Intake Total 550 / 640 350 / 990 Output Total 1000 / 1000 1720 / 2720 Balance -450 / -360 -1370 / -1730 Weight last 48 hrs Weight 101.287 kg Weight 100.788 kg Physical Exam Narrative: weak, VS noted- BP elevated heent- nc/at, eomi, anicteric neck supple lungs right crackles, left clear heart reg abd soft, nt, nd, + bs ext + edema neuro- rt weaker then left arm, + asterixis Urinary Catheter Management: Polanco: Cath Placed During This Visit: yes Reason for Continuing Indwelling Catheter: Acute Urinary Retention or Obstruction Urinary Catheter Date of Insertion: 01/28/22 Urinary Catheter Time of Insertion: 15:03 Data : 01/29/22 03:35 01/29/22 03:35 A&P Assessment and plan (1) KEL (acute kidney injury): 51 yr old man Acute CVA, KEL, accelerated HTN, brain mass. 1. ECHO- EF 65%,Severe concentric left ?ventricular hypertrophy. Grade II karen stolic dysfunction, ?moderately elevated filling pressures. [id number] tricuspid valve regurgi tation. 2. HTN- hydralazine 50 tid, procardia XL 60 po d, labetalol prn 3. KEL - renal us- RT 9cm very echogenic, left 10.3 cm markedly inc echpgenicity -cr continues to rise u/a 3+ protein, 2+ blood, 1+ ketones -serologies pending LDL 113 -check hep serologies -based on htn, renal us -likely CKD -as cr rising, htn, Brain mass, echogenic kidneys- would favor starting dialysis soon as HD via PC and can get Brain mass eval w/ CTA- avoid MRI w/ gadolinium as risk of Nephrogenic systemic fibrosis 4. Brain mass/ CVA- head lc-Vxpy-dnokiomkhtjee mass of increased density noted in the anterior LEFT parasagittal region. This is a mixed density with mass with areas of marked increased density which is probably calcification and not likely hemorrhage. There is no edema within the adjacent brain or midline shift. This mass is centered just to the LEFT of the interhemispheric falx measuring 2.9 x 2.5 cm and extends over a length of 2.8 cm. Favor this is an extra-axial mass which crosses the anterior interhemispheric falx into the RIGHT brain. There is a small CSF cleft also supporting extra-axial mass. No dural tail is identified. Again no adjacent edema. No prior infarct. Scattered foci of decreased attenuation in periventricular distribution from small vessel ischemic disease. Ventricles:? Normal size with no hydrocephalus. 5. anemia- iron sat 22% ferritin 384 6. hyperlipidemia- lipitor 7. norml tsh 8. renal bone mineral metabolism- phos improved tgo 5.1. normal ca 8.8, albumin 3.8 check pth 9. mild leukocytosis seen and examined w/ RN- telehealth visit -informed consent for telehealth obtained. Status: Acute Plan as above Attestations Medical Necessity Statement*: kel, htn, brain mass, Q CVA Time Spent in Patient Care: Greater than 35 minutes (>than 50% of time spent in counselling and/or direct pt care on unit) . Coding Level of Care Code Acute Barber Tool Sharpener for Wilfrid Osorio Diagnoses KEL (acute kidney injury) N17.9
[2022-01-30 07:52] LABS: Anion Gap 18.9 (5-19); Calcium 8.8 mg/dL (8.5-10.5); Carbon Dioxide 20 mmol/L (22-29); Chloride 107 mmol/L (98-107); Glomerular Filtration Rate 8.1 mL/min (90-130); Glucose 90 mg/dL (65-115); Osmolality Calculated 318 mOsm/kg (285-295); Potassium 3.9 mmol/L (3.5-5.1); Sodium 142 mmol/L (136-145)
[2022-01-30 07:53] LABS: Uric Acid 9.4 mg/dL (3.4-7.0)
[2022-01-30 07:56] LABS: Blood Urea Nitrogen 82 mg/dL (6-20)
[2022-01-30] MEDS: aspirin 81 mg EC Tablet PO (08:40)
[2022-01-30] MEDS: b-complex-vitamin c Tablet 1 EACH PO (08:40)
[2022-01-30] MEDS: atorvastatin 40 mg Tablet PO (08:41)
[2022-01-30] MEDS: NIFEdipine ER (24 hr) 30 mg Tablet 60 MG PO (08:41)
[2022-01-30] MEDS: ferric gluconate 125 MG in sodium chloride 0.9% (100 ml) 100 ML 110 MG IV (08:41)
[2022-01-30] MEDS: hyDRALAzine 50 mg Tablet PO ×3 (08:41→20:25)
[2022-01-30 09:18] LABS: Urine Random Sodium 74 mmol/L
[2022-01-30 09:26] LABS: Bacteria Urine 1+ /hpf; Bilirubin Urine Neg (Negative); Blood Urine 2+ (Negative); Glucose Urine UA Trace (Normal); Ketones Urine Negative (Negative); Leukocyte Esterase Urine Negative (Negative); Nitrate Urine Negative (Negative); Protein Urine 3+ (Negative); RBC Urine 0-4 /hpf (0-2); Squamous Epithelial Cell Urine 0-4 /hpf (0-5); Urine Appearance Clear (CLEAR); Urine Color Colorless (Yellow); Urobilinogen Urine Norm (Negative); WBC Urine 15-25 /hpf (0-5); pH Urine 6 (5-7)
[2022-01-30 09:27] LABS: Add Urine Culture? Yes
--- NOTE | 2022-01-30 09:32 | PM.PN ---
Subjective Subjective: 51 yo WM comes in on 01/27 with hypertensive crisis and stroke with ARF on CKD not treated or seeing doctor for about 2 years. Had gotten tired of treating his BP. Echo showed concentric LVH and carotids normal. CT shows left frontal calcified mass about 3 cm size. not represent a bleed. Pt with right handedness and right side hemiplegia. Son Jasvir at bedside. Not require labetolol overnight. Is walking with walker and homes to go home on discharge but is agreeable to home health if qualifies. Medications: Reviewed: Yes Medication Review Details: Current Medications Acetaminophen (Acetaminophen 325 Mg Tablet) 650 mg PO Q6H PRN PRN Reason: MILD PAIN Aspirin (Aspirin 81 Mg Ec Tablet) 81 mg PO DAILY [facility] Last Admin: 01/29/22 08:12 Dose: 81 mg Atorvastatin Calcium (Atorvastatin 40 Mg Tablet) 40 mg PO DAILY [facility] Last Admin: 01/29/22 08:12 Dose: 40 mg Heparin Sodium (Porcine) (Heparin 5,000 Unit/Ml Inj 1 Ml) 5,000 unit SUBCUT Q12H [facility] Last Admin: 01/30/22 01:04 Dose: 5,000 unit Hydralazine HCl (Hydralazine 50 Mg Tablet) 50 mg PO TID [facility] Last Admin: 01/29/22 20:06 Dose: 50 mg Labetalol HCl (Labetalol 5 Mg/Ml Sdv 20ml) 10 mg IVP Q6H PRN PRN Reason: Blood pressure greater than 200/ 110 Last Admin: 01/29/22 11:48 Dose: 10 mg Nifedipine (Nifedipine Er (24 Hr) 30 Mg Tablet) 60 mg PO DAILY [facility] Last Admin: 01/29/22 08:12 Dose: 60 mg Ondansetron HCl (Ondansetron 2 Mg/Ml Sdv 2 Ml) 4 mg IVP Q6H PRN PRN Reason: NAUSEA AND VOMITING Vitals/I&O/Wt Last Vital Signs Temp 98 F 01/30/22 03:37 Pulse 93 01/30/22 08:00 Resp 19 H 01/30/22 08:00 BP 179/107 01/30/22 08:00 Pulse Ox 95 01/30/22 08:00 O2 Del Method 01/30/22 03:37 01/29/22 01/30/22 01/30/22 22:59 06:59 14:59 Intake Total 550 / 640 350 / 990 360 / 360 Output Total 1000 / 1000 1720 / 2720 675 / 675 Balance -450 / -360 -1370 / -1730 -315 / -315 Weight last 48 hrs Weight 101.287 kg Weight 100.788 kg Physical Exam Narrative: General well-developed well-nourished mildly overweight male in no acute cardiopulmonary distress CV regular rate and rhythm borderline tachycardic no loud murmurs Lungs clear to auscultation bilaterally Calves trace edema Neuro patient is alert and oriented to person place and date though he initially told me it was January 29 He follows commands appropriately. 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 5 - biceps and triceps but decreased coordination Right leg 4+ Left side is normal Facial droop on the right side and decreased eye squint as well as tongue deviation to the right on tongue protrusion Speech mildly slurred but easily comprehensible Urinary Catheter Management: Polanco: Cath Placed During This Visit: yes Reason for Continuing Indwelling Catheter: Acute Urinary Retention or Obstruction Urinary Catheter Date of Insertion: 01/28/22 Urinary Catheter Time of Insertion: 15:03 Data : 01/29/22 03:35 01/30/22 07:25 A&P Assessment and plan (1) CVA (cerebral vascular accident): left-sided CVA due to uncontrolled hypertension no intervene able carotid lesions no A. fib or valvular concern At this point not a candidate to have gadolinium with MRI, nor CTA but there is a left frontal mass possibly this is incidental and not contributing to his stroke Continue ST/OT/PT consultations Aspirin 81 mg daily. Initiated statin and noted that his cholesterol only mildly elevated Start low-dose metoprolol for blood pressure and heart rate control to bring him down to 160 systolic and diastolic 100 as current goal. Transfer out of ICU Status: Acute (2) KEL (acute kidney injury): Appears to be hypertensive nephropathy with proteinuria Note that urinalysis have 3+ protein but no significant hematuria Nephrology consultation noted considering dialysis Renal failure diet please Status: Acute (3) Accelerated hypertension: Placed on nicardipine in the emergency department and stopped Changed to oral medications. No longer requiring labetalol Continue hydralazine and nifedipine Add low-dose metoprolol Status: Acute (4) Brain mass: This appears to be an incidental finding at this time. There is no evidence of surrounding edema and it is calcified. Location does not seem to explain right hand weakness. Monitor for any seizure activity MRI to delineate further. Hopefully this can be done with and without contrast if renal function improves. If not we will need to proceed without contrast. Status: Acute Plan 51 y Old male with past medical history of hypertension came in with chief complaint of acute onset of right-sided weakness as well as slurred speech, patient was also having generalized fatigue itching and nausea for the last 2 weeks. Currently he is being managed for: Assessment: Acute CVA: CT head wo con: Mixed density anterior LEFT parasagittal mass measures 2.9 x 2.5 cm and extends over length of 2.8 cm. Increased density is probably calcification within a meningioma. Favor this is an extra-axial mass. No edema within the adjacent brain or sulcal effacement. Recommend follow-up MRI brain with and without contrast to better evaluate for a dural tail and extra-axial position. Mild small vessel ischemic disease. CV carotid duplex BI* ?Bilateral ICA stenosis less than 50% 2D echo: Normal left ventricular size and systolic function with no ?regional wall motion abnormalities. Left ventricular ejection ?fraction is estimated at 65 %. Severe concentric left ?ventricular hypertrophy. Grade II diastolic dysfunction, ?moderately elevated filling pressures. [id number] tricuspid valve regurgitation.? No prior siilar studies to compare. CTA head and neck with contrast could not be done: Due to advanced CKD. Lipid panel appreciated. Has been on stroke protocol: Permissive hypertension, PT OT evaluation, speech evaluation Has been on aspirin and statin. Uncontrolled hypertension: Continue Procardia and hydralazine for now. Goal is to slowly titrate the blood pressure down to normal Brain mass: Incidental finding on CT, will need further outpatient work-up Full code Heparin subcutaneous for DVT prophylaxis Attestations Medical Necessity Statement*: Patient will be started on metoprolol. Anticipate transfer to medical floor but later today continue telemetry anticipate that he will need additional 2 days in the hospital Time Spent in Patient Care: 40 minutes spent in evaluation coronation care for this patient Case discussed with his bedside nurse, patient and his son Jasvir Coding Level of Care Code Established Pt Acute Emulsion Operator for Chg Fwd Patient Type Established History Detailed Exam Detailed Medical Decision Making High Complexity Diagnoses CVA (cerebral vascular accident) I63.9 KEL (acute kidney injury) N17.9 Accelerated hypertension I10 Brain mass G93.89
[2022-01-30] MEDS: metoprolol tartrate 25 mg Tablet 12.5 MG PO ×2 (10:13→20:25)
--- NOTE | 2022-01-30 10:25 | PC.CHAP ---
Pastoral Care Encounter/Spiritual Assessment Type of Contact [] Declined meteorology teacher visit [] Patient/Family/Request visit [] Outpatient visit [] Follow-up visit [] Physician referral [] Code/Alert [x] Routine visit [] Staff referral [] Actively dying [] Patient sleeping [x] Family support [] [] Out of room [] Palliative care [] [] Receiving care in room [] Pre-surgical visit [] Trauma [] Long length of stay [x] ICU visit [x] Other: setting up in chair.. feeling much better than when he arrived Relational/Emotional Strength [] Patient feels connected with others/family/visitors/staff [] Distress [] Loneliness/isolation [] Abandonment Spirituality of Patient [] Person of Belinda [] Attends Spiritism of their Belinda [] Believes in Prayer [] Reads Bible or Anglican materials [] There are Spiritual issues to be addressed Community Health Navigator Interventions [x] Prayer [] Active listening [] Non-anxious presence [] Spiritual/emotional support [] Crisis/trauma care [] Spiritual counseling [] Bereavement support [] Provided bereavement packet [] Provided Bible/devotional materials [] Provided toy/stuffed animal, coloring book to patient or family member [] Provided Communion [] Anointing/[place] [] Salvation [x] Completed spiritual assessment [] Other: Impact on Illness or Injury [] Angry [] Fearful [] Anxious [] Often cries [] Exhaustion [] Unable to work [] Unable to attend hinduism [] Unable to walk/stand [] Unable to read [] Unable to drive [] Unable to eat/drink [] Unable to sleep [] Unable to be with family [] Patient intubated [] Other: Summary Time spent with patient
[2022-01-30 10:30] LABS: Hepatitis B Surface AB 3.5 (11.5-1000); Hepatitis B Surface Antigen Non-Reactive (Nonreactive); Hepatitis C Virus Antibody Non-Reactive (Nonreactive)
[2022-01-30 10:34] LABS: HIV 1 & 2 Antibody Non-Reactive (Non-Reactiv); HIV 1 & 2 Antigen Non-Reactive (Non-Reactiv)
[2022-01-31] VITALS (21 sets, daily range): BP systolic 157–187; BP diastolic 91–108; PULSE 78–102; RESP 14–26; TEMP 36.2–36.9; O2SAT 96–99
[2022-01-31] MEDS: heparin 5,000 unit/mL INJ 1 mL 5000 UNIT SUBCUT ×2 (00:27→13:51)
[2022-01-31 04:26] LABS: Basophils # 0.1 10^3/uL (0.0-0.1); Basophils % 0.6 %; Eosinophils # 0.6 10^3/uL (0.0-0.8); Eosinophils % 5.7 %; Hematocrit 31.5 % (42.0-52.0); Lymphocytes # 1.2 10^3/uL (0.8-4.8); Lymphocytes % 10.9 %; Mean Corpuscular HGB Conc 31.7 g/dL (30.0-36.0); Mean Corpuscular Hemoglobin 29.2 pg (28.0-34.0); Mean Corpuscular Volume 91.8 fl (80-94); Mean Platelet Volume 9.9 fL (7.4-10.4); Monocytes # 0.9 10^3/uL (0.2-0.9); Monocytes % 8.3 %; Neutrophils # 7.98 10^3/uL (1.8-7.7); Neutrophils % 73.9 %; Nucleated Red Blood Cells % 0 %; Platelet Count 192 10^3/cmm (130-400); Red Blood Count 3.43 10^6/uL (4.1-5.3); White Blood Count 10.8 10^3/uL (4.0-10.0)
[2022-01-31 04:55] LABS: Alanine Aminotransferase 21 U/L (0-41); Albumin Level 3.3 g/dL (3.5-5.2); Alkaline Phosphatase 101 U/L (40-130); Aspartate Amino Transferase 23 U/L (0-40); Calcium 8.8 mg/dL (8.5-10.5); Carbon Dioxide 20 mmol/L (22-29); Chloride 108 mmol/L (98-107); Globulin 2.8 g/dL (1.3-4.6); Glomerular Filtration Rate 8.4 mL/min (90-130); Glucose 89 mg/dL (65-115); Magnesium 2.3 mg/dL (1.7-2.3); Osmolality Calculated 321 mOsm/kg (285-295); Phosphorus 6.3 mg/dL (2.5-4.5); Sodium 143 mmol/L (136-145); Total Bilirubin 0.3 mg/dL (0.15-1.2); Total Protein 6.1 g/dL (6.6-8.7)
[2022-01-31 04:57] LABS: Calcium 8.6 mg/dL (8.5-10.5)
[2022-01-31 05:03] LABS: Parathyroid Hormone 164.4 pg/mL (15-65)
[2022-01-31 05:08] LABS: Blood Urea Nitrogen 84 mg/dL (6-20)
[2022-01-31 05:26] LABS: 25 Hydroxy Vitamin D 26 ng/mL (30-100)
[2022-01-31] MEDS: NIFEdipine ER (24 hr) 30 mg Tablet 60 MG PO (08:23)
[2022-01-31] MEDS: hyDRALAzine 50 mg Tablet PO ×3 (08:23→20:43)
[2022-01-31] MEDS: metoprolol tartrate 25 mg Tablet 12.5 MG PO (08:24)
[2022-01-31] MEDS: b-complex-vitamin c Tablet 1 EACH PO (08:24)
[2022-01-31] MEDS: aspirin 81 mg EC Tablet PO (08:24)
[2022-01-31] MEDS: atorvastatin 40 mg Tablet PO (08:24)
--- NOTE | 2022-01-31 10:05 | P.PN_ITS ---
Subjective Subjective: feels better. improved MS, no desai, no n/v/f,c/sob, cp, cough Medications: Reviewed: Yes Medication Review Details: Current Medications Acetaminophen (Acetaminophen 325 Mg Tablet) 650 mg PO Q6H PRN PRN Reason: MILD PAIN Aspirin (Aspirin 81 Mg Ec Tablet) 81 mg PO DAILY [facility] Last Admin: 01/31/22 08:24 Dose: 81 mg Atorvastatin Calcium (Atorvastatin 40 Mg Tablet) 40 mg PO DAILY [facility] Last Admin: 01/31/22 08:24 Dose: 40 mg Heparin Sodium (Porcine) (Heparin 5,000 Unit/Ml Inj 1 Ml) 5,000 unit SUBCUT Q12H [facility] Last Admin: 01/31/22 00:27 Dose: 5,000 unit Hydralazine HCl (Hydralazine 50 Mg Tablet) 50 mg PO TID [facility] Last Admin: 01/31/22 08:23 Dose: 50 mg Ferric Sodium Gluconate 125 mg (/ Sodium Chloride) 110 mls @ 110 mls/hr IV Q24H [facility] Stop: 02/06/22 09:59 Last Infusion: 01/30/22 09:59 Dose: Infused Labetalol HCl (Labetalol 5 Mg/Ml Sdv 20ml) 10 mg IVP Q6H PRN PRN Reason: Blood pressure greater than 200/ 110 Last Admin: 01/29/22 11:48 Dose: 10 mg Metoprolol Tartrate (Metoprolol Tartrate 25 Mg Tablet) 12.5 mg PO BID@0900,2100 [facility] Last Admin: 01/31/22 08:24 Dose: 12.5 mg Multivitamins (M-Dpcqkqe-Qeevpsf C Tablet) 1 each PO DAILY [facility] Last Admin: 01/31/22 08:24 Dose: 1 each Nifedipine (Nifedipine Er (24 Hr) 30 Mg Tablet) 60 mg PO DAILY [facility] Last Admin: 01/31/22 08:23 Dose: 60 mg Ondansetron HCl (Ondansetron 2 Mg/Ml Sdv 2 Ml) 4 mg IVP Q6H PRN PRN Reason: NAUSEA AND VOMITING Vitals/I&O/Wt Last Vital Signs Temp 98.7 F 01/30/22 22:00 Pulse 102 H 01/31/22 08:00 Resp 22 H 01/31/22 08:00 BP 187/103 01/31/22 08:00 Pulse Ox 97 01/31/22 08:00 O2 Del Method 01/31/22 05:33 01/30/22 01/31/22 01/31/22 22:59 06:59 14:59 Intake Total 540 / 1250 300 / 1550 440 / 440 Output Total 1325 / 2000 750 / 2750 Balance -785 / -750 -450 / -1200 440 / 440 Weight last 48 hrs Weight 103.419 kg Weight 101.287 kg Physical Exam Narrative: comfortable, NARD in chair, VS noted- BP elevated heent- nc/at, eomi, anicteric neck supple lungs clear b/l heart reg abd soft, nt, nd, + bs ext + edema neuro- rt weaker then left arm, + mild asterixis Urinary Catheter Management: Polanco: Cath Placed During This Visit: yes Reason for Continuing Indwelling Catheter: Accurate Measurement of Urinary Output in Critically Ill Patients Urinary Catheter Date of Insertion: 01/28/22 Urinary Catheter Time of Insertion: 15:03 Data : 01/31/22 03:39 01/31/22 03:39 A&P Assessment and plan (1) KEL (acute kidney injury): 51 yr old man Acute CVA, KEL, accelerated HTN, brain mass. 1. ECHO- EF 65%,Severe concentric left ?ventricular hypertrophy. Grade II diastolic dysfunction, ?moderately elevated filling pressures. Jfej-of-uwhmoiza tricuspid valve regurgitation. 2. HTN- hydralazine 50 tid, procardia XL 60 po d, metoprolol- inc dose. consider clonidine 3. KEL - renal us- RT 9cm very echogenic, left 10.3 cm markedly inc echpgenicity -cr continues to rise u/a 3+ protein, 2+ blood, 1+ ketones -serologies pending LDL 113 -check hep serologies -based on htn, renal us -likely CKD - cr stable- will monitor and discuss w/ PMD about initiation of dialysis - avoid MRI w/ gadolinium as risk of Nephrogenic systemic fibrosis 4. Brain mass/ CVA- head yk-Rdyw-ltiquiigcuwrl mass of increased density noted in the anterior LEFT parasagittal region. This is a mixed density with mass with areas of marked increased density which is probably calcification and not likely hemorrhage. There is no edema within the adjacent brain or midline shift. This mass is centered just to the LEFT of the interhemispheric falx measuring 2.9 x 2.5 cm and extends over a length of 2.8 cm. Favor this is an extra-axial mass which crosses the anterior interhemispheric falx into the RIGHT brain. There is a small CSF cleft also supporting extra-axial mass. No dural tail is identified. Again no adjacent edema. No prior infarct. Scattered foci of decreased attenuation in periventricular distribution from small vessel ischemic disease. Ventricles:? Normal size with no hydrocephalus. 5. anemia- iron sat 22% ferritin 384- iron 6. hyperlipidemia- lipitor 7. norml tsh 8. renal bone mineral metabolism- phos 6.3- binders. normal ca 8.8, albumin 3.8 check pth= 164 - can start vit d analouge 9.mild met acidosis- use na bicarb seen and examined w/ RN- telehealth visit -informed consent for telehealth obtained. Status: Acute Plan as above Attestations Medical Necessity Statement*: htn urgency, ckd Time Spent in Patient Care: 16 - 35 minutes (>than 50% of time spent in counselling and/or direct pt care on unit) . Coding Level of Care Code Acute Supervisor Detasseling Crew for Wilfrid Osorio Diagnoses KEL (acute kidney injury) N17.9
--- NOTE | 2022-01-31 11:48 | PM.PN ---
Subjective Subjective: feels better. improved MS, no desai, no n/v/f,c/sob, cp, cough Patient says that before agreeing to dialysis he would like to have his present. I spoke with Dr. Lara and we are in agreement the patient can move to the medical floor. We will proceed with gradually lowering the blood pressure down to normal level. Patient tells me that he had blood pressures as high as 260/150 at home and felt okay. He has an automated blood pressure cuff for the arm Medications: Reviewed: Yes Vitals/I&O/Wt Last Vital Signs Temp 98.7 F 01/30/22 22:00 Pulse 78 01/31/22 10:00 Resp 18 01/31/22 10:00 BP 177/97 01/31/22 10:00 Pulse Ox 98 01/31/22 10:00 O2 Del Method 01/31/22 10:00 01/30/22 01/31/22 01/31/22 22:59 06:59 14:59 Intake Total 540 / 1250 300 / 1550 440 / 440 Output Total 1325 / 2000 750 / 2750 Balance -785 / -750 -450 / -1200 440 / 440 Weight last 48 hrs Weight 103.419 kg Weight 101.287 kg Physical Exam Narrative: General well-developed well-nourished mildly overweight male in no acute cardiopulmonary distress CV regular rate and rhythm borderline tachycardic no loud murmurs Lungs clear to auscultation bilaterally Calves trace edema Neuro patient is alert and oriented to person place and date Right-sided weakness similar to yesterday Urinary Catheter Management: Polanco: Cath Placed During This Visit: yes Reason for Continuing Indwelling Catheter: Accurate Measurement of Urinary Output in Critically Ill Patients Urinary Catheter Date of Insertion: 01/28/22 Urinary Catheter Time of Insertion: 15:03 Data : 01/31/22 03:39 01/31/22 03:39 Micro: Microbiology 01/30/22 08:00 Urine Culture - Preliminary Urine,Clean Catch A&P Assessment and plan (1) CVA (cerebral vascular accident): left-sided CVA due to uncontrolled hypertension no intervene able carotid lesions no A. fib or valvular concern At this point not a candidate to have gadolinium with MRI, nor CTA but there is a left frontal mass possibly this is incidental and not contributing to his stroke Continue ST/OT/PT consultations Aspirin 81 mg daily. Initiated statin and noted that his cholesterol only mildly elevated Increase metoprolol for blood pressure and heart rate control to bring him down to 150 systolic and diastolic 90 as current goal. Transfer out of ICU Add clonidine 0.1 mg twice a day first dose now Status: Acute (2) KEL (acute kidney injury): Appears to be hypertensive nephropathy with proteinuria Note that urinalysis have 3+ protein but no significant hematuria Nephrology consultation noted considering dialysis Renal failure diet please Status: Acute (3) Accelerated hypertension: Placed on nicardipine in the emergency department and stopped Changed to oral medications. No longer requiring labetalol Continue hydralazine and nifedipine Increase metoprolol add clonidine Status: Acute (4) Brain mass: This appears to be an incidental finding at this time. There is no evidence of surrounding edema and it is calcified. Location does not seem to explain right hand weakness. Monitor for any seizure activity MRI to delineate further. Hopefully this can be done with and without contrast if renal function improves. If not we will need to proceed without contrast. Status: Acute Plan Acute CVA: CT head wo con: Mixed density anterior LEFT parasagittal mass measures 2.9 x 2.5 cm and extends over length of 2.8 cm. Increased density is probably calcification within a meningioma. Favor this is an extra-axial mass. No edema within the adjacent brain or sulcal effacement. Recommend follow-up MRI brain with and without contrast to better evaluate for a dural tail and extra-axial position. Mild small vessel ischemic disease. CV carotid duplex BI* ?Bilateral ICA stenosis less than 50% 2D echo: Normal left ventricular size and systolic function with no ?regional wall motion abnormalities. Left ventricular ejection ?fraction is estimated at 65 %. Severe concentric left ?ventricular hypertrophy. Grade II diastolic dysfunction, ?moderately elevated filling pressures. Rctk-hz-smntvkle tricuspid valve regurgitation.? No prior siilar studies to compare. CTA head and neck with contrast could not be done: Due to advanced CKD. Brain mass: Incidental finding on CT, will need further outpatient work-up Full code Heparin subcutaneous for DVT prophylaxis Attestations Medical Necessity Statement*: Patient will be transferred patient will be transferred to medical floor with continued telemetry Time Spent in Patient Care: 40 minutes spent in evaluation and coordination of care for this patient today Coding Level of Care Code Acute Certified Fire Investigator for Wilfrid Fwasia History Detailed Exam Detailed Medical Decision Making Moderate Complexity Diagnoses CVA (cerebral vascular accident) I63.9 KEL (acute kidney injury) N17.9 Accelerated hypertension I10 Brain mass G93.89
[2022-01-31] MEDS: calcitriol 0.25 mcg Capsule PO (11:52)
[2022-01-31] MEDS: cloNIDine 0.1 mg Tablet PO ×2 (11:52→17:43)
[2022-01-31] MEDS: ferric gluconate 125 MG in sodium chloride 0.9% (100 ml) 100 ML 110 MG IV (11:52)
--- NOTE | 2022-01-31 12:11 | PC.CHAP ---
Pastoral Care Encounter/Spiritual Assessment Type of Contact [] Declined maternity floor supervisor visit [] Patient/Family/Request visit [] Outpatient visit [] Follow-up visit [] Physician referral [] Code/Alert [x] Routine visit [] Staff referral [] Actively dying [] Patient sleeping [] Family support [] [] Out of room [] Palliative care [] [] Receiving care in room [] Pre-surgical visit [] Trauma [] Long length of stay [x] ICU visit [x] Other: patient setting in chair Relational/Emotional Strength [] Patient feels connected with others/family/visitors/staff [] Distress [] Loneliness/isolation [] Abandonment Spirituality of Patient [] Person of Belinda [] Attends Jainism of their Belinda [] Believes in Prayer [] Reads Bible or Methodist materials [] There are Spiritual issues to be addressed Stringed Instrument Repairer Interventions [x] Prayer [] Active listening [] Non-anxious presence [] Spiritual/emotional support [] Crisis/trauma care [] Spiritual counseling [] Bereavement support [] Provided bereavement packet [] Provided Bible/devotional materials [] Provided toy/stuffed animal, coloring book to patient or family member [] Provided Communion [] Anointing/[place] [] Salvation [x] Completed spiritual assessment [] Other: Impact on Illness or Injury [] Angry [] Fearful [] Anxious [] Often cries [] Exhaustion [] Unable to work [] Unable to attend religion [] Unable to walk/stand [] Unable to read [] Unable to drive [] Unable to eat/drink [] Unable to sleep [] Unable to be with family [] Patient intubated [] Other: Summary Time spent with patient
[2022-01-31 12:24] LABS: Complement Total (CH50) >60 U/mL (31-60)
[2022-01-31 14:18] LABS: Anti-Nuclear Antibody Screen NEGATIVE (NEGATIVE)
[2022-01-31 14:47] LABS: KAPPA LIGHT CHAIN, FREE, SERUM 93.9 mg/L (3.3-19.4); KAPPA/LAMBDA LIGHT CHAINS FREE 1.63 (0.26-1.65); LAMBDA LIGHT CHAIN, FREE, SERU 57.6 mg/L (5.7-26.3)
[2022-01-31] MEDS: sevelamer 800 mg Tablet 1600 MG PO ×2 (16:03→20:44)
[2022-01-31] MEDS: sodium bicarbonate 650 mg Tablet PO ×2 (16:03→20:44)
[2022-01-31] MEDS: metoprolol tartrate 25 mg Tablet PO (20:43)
--- NOTE | 2022-01-31 21:13 | PC.NURSE ---
Transfer Patient transferred to [facility] 277-1 via bed. Son brought all belongings and moved to new room with patient. All vitals stable. Receiving nurse at bedside.
[2022-02-01] VITALS (11 sets, daily range): BP systolic 140–186; BP diastolic 81–101; PULSE 74–85; RESP 17–20; TEMP 36.6–36.9; O2SAT 97–98
[2022-02-01] MEDS: heparin 5,000 unit/mL INJ 1 mL 5000 UNIT SUBCUT ×2 (01:25→12:42)
[2022-02-01 03:12] LABS: Basophils # 0.1 10^3/uL (0.0-0.1); Basophils % 0.6 %; Eosinophils # 0.7 10^3/uL (0.0-0.8); Eosinophils % 6.9 %; Hematocrit 30.3 % (42.0-52.0); Hemoglobin 9.6 g/dL (11.7-16.6); Lymphocytes # 1.1 10^3/uL (0.8-4.8); Lymphocytes % 11.7 %; Mean Corpuscular HGB Conc 31.7 g/dL (30.0-36.0); Mean Corpuscular Hemoglobin 28.4 pg (28.0-34.0); Mean Corpuscular Volume 89.6 fl (80-94); Mean Platelet Volume 9.9 fL (7.4-10.4); Monocytes # 0.9 10^3/uL (0.2-0.9); Neutrophils # 6.74 10^3/uL (1.8-7.7); Neutrophils % 71.3 %; Nucleated Red Blood Cells % 0 %; Platelet Count 204 10^3/cmm (130-400); Red Blood Count 3.38 10^6/uL (4.1-5.3); Red Cell Distribution Width 14.8 % (12.1-15.1); White Blood Count 9.5 10^3/uL (4.0-10.0)
[2022-02-01 03:46] LABS: Alanine Aminotransferase 21 U/L (0-41); Albumin Level 3.1 g/dL (3.5-5.2); Alkaline Phosphatase 96 U/L (40-130); Aspartate Amino Transferase 21 U/L (0-40); Calcium 8.5 mg/dL (8.5-10.5); Carbon Dioxide 21 mmol/L (22-29); Chloride 105 mmol/L (98-107); Globulin 2.8 g/dL (1.3-4.6); Glomerular Filtration Rate 7.6 mL/min (90-130); Glucose 90 mg/dL (65-115); Magnesium 2.2 mg/dL (1.7-2.3); Osmolality Calculated 314 mOsm/kg (285-295); Phosphorus 6.9 mg/dL (2.5-4.5); Sodium 139 mmol/L (136-145); Total Bilirubin 0.3 mg/dL (0.15-1.2); Total Protein 5.9 g/dL (6.6-8.7)
[2022-02-01 04:11] LABS: Blood Urea Nitrogen 88 mg/dL (6-20)
[2022-02-01 07:38] LABS: ALBUMIN 3.6 g/dL (3.8-4.8); ALPHA 1 GLOBULIN 0.3 g/dL (0.2-0.3); ALPHA 2 GLOBULIN 0.7 g/dL (0.5-0.9); BETA 1 GLOBULIN 0.4 g/dL (0.4-0.6); BETA 2 GLOBULIN 0.4 g/dL (0.2-0.5); GAMMA GLOBULIN 0.9 g/dL (0.8-1.7)
--- NOTE | 2022-02-01 07:45 | PM.PN ---
Subjective Subjective: denies complaints. states he is feeling better. denies n/v/sob/ itching Medications: Reviewed: Yes Medication Review Details: Current Medications Acetaminophen (Acetaminophen 325 Mg Tablet) 650 mg PO Q6H PRN PRN Reason: MILD PAIN Aspirin (Aspirin 81 Mg Ec Tablet) 81 mg PO DAILY [facility] Last Admin: 01/31/22 08:24 Dose: 81 mg Atorvastatin Calcium (Atorvastatin 40 Mg Tablet) 40 mg PO DAILY [facility] Last Admin: 01/31/22 08:24 Dose: 40 mg Calcitriol (Calcitriol 0.25 Mcg Capsule) 0.25 mcg PO DAILY [facility] Last Admin: 01/31/22 11:52 Dose: 0.25 mcg Clonidine HCl (Clonidine 0.1 Mg Tablet) 0.1 mg PO BID [facility] Last Admin: 01/31/22 17:43 Dose: 0.1 mg Heparin Sodium (Porcine) (Heparin 5,000 Unit/Ml Inj 1 Ml) 5,000 unit SUBCUT Q12H [facility] Last Admin: 02/01/22 01:25 Dose: 5,000 unit Hydralazine HCl (Hydralazine 50 Mg Tablet) 50 mg PO TID [facility] Last Admin: 01/31/22 20:43 Dose: 50 mg Ferric Sodium Gluconate 125 mg (/ Sodium Chloride) 110 mls @ 110 mls/hr IV Q24H [facility] Stop: 02/06/22 09:59 Last Infusion: 01/31/22 13:44 Dose: Infused Labetalol HCl (Labetalol 5 Mg/Ml Sdv 20ml) 10 mg IVP Q6H PRN PRN Reason: Blood pressure greater than 200/ 110 Last Admin: 01/29/22 11:48 Dose: 10 mg Metoprolol Tartrate (Metoprolol Tartrate 25 Mg Tablet) 25 mg PO BID@0900,2100 [facility] Last Admin: 01/31/22 20:43 Dose: 25 mg Multivitamins (C-Couiand-Raddbqi C Tablet) 1 each PO DAILY [facility] Last Admin: 01/31/22 08:24 Dose: 1 each Nifedipine (Nifedipine Er (24 Hr) 30 Mg Tablet) 60 mg PO DAILY [facility] Last Admin: 01/31/22 08:23 Dose: 60 mg Ondansetron HCl (Ondansetron 2 Mg/Ml Sdv 2 Ml) 4 mg IVP Q6H PRN PRN Reason: NAUSEA AND VOMITING Sevelamer Carbonate (Sevelamer 800 Mg Tablet) 1,600 mg PO TID [facility] Last Admin: 01/31/22 20:44 Dose: 1,600 mg Sodium Bicarbonate (Sodium Bicarbonate 650 Mg Tablet) 650 mg PO TID [facility] Last Admin: 01/31/22 20:44 Dose: 650 mg Vitals/I&O/Wt Last Vital Signs Temp 98.4 F 02/01/22 07:16 Pulse 83 02/01/22 07:16 Resp 18 02/01/22 07:16 BP 162/92 02/01/22 07:16 Pulse Ox 98 02/01/22 07:16 O2 Del Method 02/01/22 07:16 01/31/22 02/01/22 02/01/22 22:59 06:59 14:59 Intake Total 240 / 1030 Output Total 1600 / 1600 1125 / 2725 Balance -1360 / -570 -1125 / -1695 Weight last 48 hrs Weight 103.419 kg Weight 103.419 kg Physical Exam Narrative: comfortable, NARD in chair, VS noted- BP slowly improving heent- nc/at, eomi, anicteric neck supple lungs clear b/l heart reg abd soft, nt, nd, + bs ext + edema on rt side neuro- rt weaker then left arm, + mild asterixis Urinary Catheter Management: Polanco: Cath Placed During This Visit: yes Reason for Continuing Indwelling Catheter: Accurate Measurement of Urinary Output in Critically Ill Patients Urinary Catheter Date of Insertion: 01/28/22 Urinary Catheter Time of Insertion: 15:03 Data : 02/01/22 03:00 02/01/22 03:00 Micro: Microbiology 01/30/22 08:00 Urine Culture - Preliminary Urine,Clean Catch A&P Assessment and plan (1) KEL (acute kidney injury): 51 yr old man Acute CVA, KEL, accelerated HTN, brain mass. 1. ECHO- EF 65%,Severe concentric left ?ventricular hypertrophy. Grade II diastolic dysfunction, ?moderately elevated filling pressures. Fmik-kf-ghszjwrf tricuspid valve regurgitation. 2. HTN- hydralazine 50 tid, procardia XL 60 po d, metoprolol- 25 bid, and clonidine 0.1 bid 3. KEL - renal us- RT 9cm very echogenic, left 10.3 cm markedly inc echogenicity -cr continues to rise u/a 3+ protein, 2+ blood, 1+ ketones -serologies pending LDL 113 -check hep serologies -based on htn, renal us -likely CKD - cr slightly higher- will monitor and discuss w/ PMD about initiation of dialysis - i am concerned if he does not start HD now- how will he get renal f/u - avoid MRI w/ gadolinium as risk of Nephrogenic systemic fibrosis 4. Brain mass/ CVA- head zr-Mcam-rxdzihyqrrxvv mass of increased density noted in the anterior LEFT parasagittal region. This is a mixed density with mass with areas of marked increased density which is probably calcification and not likely hemorrhage. There is no edema within the adjacent brain or midline shift. This mass is centered just to the LEFT of the interhemispheric falx measuring 2.9 x 2.5 cm and extends over a length of 2.8 cm. Favor this is an extra-axial mass which crosses the anterior interhemispheric falx into the RIGHT brain. There is a small CSF cleft also supporting extra-axial mass. No dural tail is identified. Again no adjacent edema. No prior infarct. Scattered foci of decreased attenuation in periventricular distribution from small vessel ischemic disease. Ventricles:? Normal size with no hydrocephalus. 5. anemia- iron sat 22% ferritin 384- iron 6. hyperlipidemia- lipitor 7. norml tsh 8. renal bone mineral metabolism- phos 6.9- binders. normal ca 8.8, albumin 3.8 check pth= 164 - can start vit d analouge 9.mild met acidosis- use na bicarb 10. social issue- ensure he has medical f/u and access to meds on dc seen and examined w/ RN- telehealth visit -informed consent for telehealth obtained. Status: Acute Plan as above Attestations Medical Necessity Statement*: kel, htn, brain mass Time Spent in Patient Care: 16 - 35 minutes (>than 50% of time spent in counselling and/or direct pt care on unit). Coding Level of Care Code Acute Coating Supervisor for Wilfrid Osorio Diagnoses KEL (acute kidney injury) N17.9
[2022-02-01] MEDS: calcitriol 0.25 mcg Capsule PO (08:19)
[2022-02-01] MEDS: NIFEdipine ER (24 hr) 30 mg Tablet 60 MG PO (08:19)
[2022-02-01] MEDS: hyDRALAzine 50 mg Tablet PO ×3 (08:19→20:16)
[2022-02-01] MEDS: sevelamer 800 mg Tablet 1600 MG PO ×3 (08:19→20:15)
[2022-02-01] MEDS: cloNIDine 0.1 mg Tablet PO ×2 (08:19→18:03)
[2022-02-01] MEDS: aspirin 81 mg EC Tablet PO (08:20)
[2022-02-01] MEDS: atorvastatin 40 mg Tablet PO (08:20)
[2022-02-01] MEDS: b-complex-vitamin c Tablet 1 EACH PO (08:20)
[2022-02-01] MEDS: metoprolol tartrate 25 mg Tablet PO ×2 (08:20→20:16)
[2022-02-01] MEDS: sodium bicarbonate 650 mg Tablet PO ×3 (08:20→20:15)
[2022-02-01] MEDS: ferric gluconate 125 MG in sodium chloride 0.9% (100 ml) 100 ML 110 MG IV (09:50)
--- NOTE | 2022-02-01 13:53 | PM.PN ---
Subjective Subjective: 51-year-old man accompanied by his and daughter today. Patient has had was-in-ofemhur blood pressure untreated at home came in with systolic blood pressure 260 diastolic 160 and acute renal failure. He has had uremia symptoms of itching at home but no electrolyte abnormalities or volume overload. Patient presented primarily due to ischemic stroke with right-sided weakness. No interventions possible. He is also found to have a frontal mass that does not well explain his neurodeficit. MRI is desired but not performed due to risk for contrast toxicity. Patient has not had primary care physician or insurance for medical care for some time i.e. 2 years Medications: Reviewed: Yes Vitals/I&O/Wt Last Vital Signs Temp 97.8 F 02/01/22 11:18 Pulse 74 02/01/22 11:18 Resp 18 02/01/22 11:18 BP 140/81 02/01/22 11:18 Pulse Ox 98 02/01/22 11:18 O2 Del Method 02/01/22 11:18 01/31/22 02/01/22 02/01/22 22:59 06:59 14:59 Intake Total 240 / 1030 710 / 710 Output Total 1600 / 1600 1125 / 2725 Balance -1360 / -570 -1125 / -1695 710 / 710 Weight last 48 hrs Weight 103.419 kg Weight 103.419 kg Physical Exam Narrative: General well-developed well-nourished male in no acute cardiopulmonary stress Lid lag noted on the right eye CV regular rate and rhythm lungs clear to auscultation bilateral Speech clear Patient with right hemiplegia moderate unchanged Urinary Catheter Management: Polanco: Cath Placed During This Visit: yes Reason for Continuing Indwelling Catheter: Accurate Measurement of Urinary Output in Critically Ill Patients Urinary Catheter Date of Insertion: 01/28/22 Urinary Catheter Time of Insertion: 15:03 Data : 02/01/22 03:00 02/01/22 03:00 Micro: Microbiology 01/30/22 08:00 Urine Culture - Final Urine,Clean Catch A&P Assessment and plan (1) CVA (cerebral vascular accident): left-sided CVA due to uncontrolled hypertension no intervene able carotid lesions no A. fib or valvular concern At this point not a candidate to have gadolinium with MRI, nor CTA but there is a left frontal mass possibly this is incidental and not contributing to his stroke Continue ST/OT/PT consultations Aspirin 81 mg daily. Initiated statin and noted that his cholesterol only mildly elevated blood pressure at current goal. Status: Acute (2) KEL (acute kidney injury): Appears to be hypertensive nephropathy with proteinuria Note that urinalysis have 3+ protein but no significant hematuria Nephrology consultation noted considering dialysis Renal failure diet please Status: Acute (3) Accelerated hypertension: Placed on nicardipine in the emergency department and stopped Changed to oral medications. labetolol stopped Continue hydralazine, nifedipine, metoprolol and clonidine Status: Acute (4) Brain mass: This appears to be an incidental finding at this time. There is no evidence of surrounding edema and it is calcified. Location does not seem to explain right hand weakness. Monitor for any seizure activity MRI to delineate further non contrast as renal function is terrible still Status: Acute Plan Acute CVA: CT head wo con: Mixed density anterior LEFT parasagittal mass measures 2.9 x 2.5 cm and extends over length of 2.8 cm. Increased density is probably calcification within a meningioma. Favor this is an extra-axial mass. No edema within the adjacent brain or sulcal effacement. Recommend follow-up MRI brain with and without contrast to better evaluate for a dural tail and extra-axial position. Mild small vessel ischemic disease. CV carotid duplex BI* ?Bilateral ICA stenosis less than 50% 2D echo: Normal left ventricular size and systolic function with no ?regional wall motion abnormalities. Left ventricular ejection ?fraction is estimated at 65 %. Severe concentric left ?ventricular hypertrophy. Grade II diastolic dysfunction, ?moderately elevated filling pressures. Qfdl-vz-tsogkxxe tricuspid valve regurgitation.? No prior siilar studies to compare. CTA head and neck with contrast could not be done: Due to advanced CKD. Brain mass: Incidental finding on CT, will need further outpatient work-up MRI today Full code Heparin subcutaneous for DVT prophylaxis Attestations Medical Necessity Statement*: Patient will have MRI today there is no chance that he will improve his renal function enough to have gadolinium contrast Additionally with stage V chronic kidney disease he will be signed up for Medicare and Medicaid Time Spent in Patient Care: 35 minutes spent in evaluation coronation care for this patient today Coding Level of Care Code Acute Product Development Director for Wilfrid Fwd History Detailed Exam Detailed Medical Decision Making High Complexity Diagnoses CVA (cerebral vascular accident) I63.9 KEL (acute kidney injury) N17.9 Accelerated hypertension I10 Brain mass G93.89
[2022-02-01 16:18] LABS: Glomerular Bsmt Membrane IGG <1.0 AI
[2022-02-02] VITALS (10 sets, daily range): BP systolic 157–179; BP diastolic 83–104; PULSE 67–87; RESP 16–20; TEMP 36.4–37; O2SAT 96
[2022-02-02] MEDS: heparin 5,000 unit/mL INJ 1 mL 5000 UNIT SUBCUT ×2 (01:20→13:42)
--- NOTE | 2022-02-02 01:27 | PC.NURSE ---
Assisted patient up to bathroom using walker. Patient is standby to minimal contact assist at this time. Patient tolerates well but does have minor control issues of right foot/leg. Balance remains fair. Speech continues to improve. Denies pain or other needs at this time. Will continue to monitor.
[2022-02-02 03:04] LABS: Basophils % 0.4 %; Eosinophils # 0.6 10^3/uL (0.0-0.8); Eosinophils % 6.5 %; Hemoglobin 9.5 g/dL (11.7-16.6); Lymphocytes # 1.2 10^3/uL (0.8-4.8); Lymphocytes % 11.9 %; Mean Corpuscular HGB Conc 31.7 g/dL (30.0-36.0); Mean Corpuscular Hemoglobin 28.8 pg (28.0-34.0); Mean Corpuscular Volume 90.9 fl (80-94); Mean Platelet Volume 9.9 fL (7.4-10.4); Monocytes # 0.9 10^3/uL (0.2-0.9); Monocytes % 9.5 %; Neutrophils # 6.98 10^3/uL (1.8-7.7); Neutrophils % 71.3 %; Nucleated Red Blood Cells % 0 %; Platelet Count 192 10^3/cmm (130-400); Red Cell Distribution Width 14.6 % (12.1-15.1); White Blood Count 9.8 10^3/uL (4.0-10.0)
[2022-02-02 03:33] LABS: Alanine Aminotransferase 20 U/L (0-41); Albumin Level 3.1 g/dL (3.5-5.2); Alkaline Phosphatase 94 U/L (40-130); Anion Gap 16.9 (5-19); Aspartate Amino Transferase 18 U/L (0-40); Calcium 8.5 mg/dL (8.5-10.5); Carbon Dioxide 23 mmol/L (22-29); Chloride 104 mmol/L (98-107); Globulin 2.7 g/dL (1.3-4.6); Glomerular Filtration Rate 7.8 mL/min (90-130); Glucose 92 mg/dL (65-115); Magnesium 2.3 mg/dL (1.7-2.3); Osmolality Calculated 316 mOsm/kg (285-295); Phosphorus 7.1 mg/dL (2.5-4.5); Potassium 3.9 mmol/L (3.5-5.1); Sodium 140 mmol/L (136-145); Total Bilirubin 0.2 mg/dL (0.15-1.2); Total Protein 5.8 g/dL (6.6-8.7)
[2022-02-02 04:10] LABS: Blood Urea Nitrogen 87 mg/dL (6-20)
--- NOTE | 2022-02-02 09:17 | P.PN_ITS ---
Subjective Subjective: feels better. improved strength and appetite. no n/v/f/c/desai/d/leg pains. walking improving Medications: Reviewed: Yes Medication Review Details: Current Medications Acetaminophen (Acetaminophen 325 Mg Tablet) 650 mg PO Q6H PRN PRN Reason: MILD PAIN Aspirin (Aspirin 81 Mg Ec Tablet) 81 mg PO DAILY COUNT INCLUDES THE [facility] Last Admin: 02/01/22 08:20 Dose: 81 mg Atorvastatin Calcium (Atorvastatin 40 Mg Tablet) 40 mg PO DAILY COUNT INCLUDES THE [facility] Last Admin: 02/01/22 08:20 Dose: 40 mg Calcitriol (Calcitriol 0.25 Mcg Capsule) 0.25 mcg PO DAILY COUNT INCLUDES THE [facility] Last Admin: 02/01/22 08:19 Dose: 0.25 mcg Clonidine HCl (Clonidine 0.1 Mg Tablet) 0.1 mg PO BID COUNT INCLUDES THE [facility] Last Admin: 02/01/22 18:03 Dose: 0.1 mg Heparin Sodium (Porcine) (Heparin 5,000 Unit/Ml Inj 1 Ml) 5,000 unit SUBCUT Q12H COUNT INCLUDES THE [facility] Last Admin: 02/02/22 01:20 Dose: 5,000 unit Hydralazine HCl (Hydralazine 50 Mg Tablet) 50 mg PO TID COUNT INCLUDES THE [facility] Last Admin: 02/01/22 20:16 Dose: 50 mg Ferric Sodium Gluconate 125 mg (/ Sodium Chloride) 110 mls @ 110 mls/hr IV Q24H COUNT INCLUDES THE [facility] Stop: 02/06/22 09:59 Last Infusion: 02/01/22 11:09 Dose: Infused Metoprolol Tartrate (Metoprolol Tartrate 25 Mg Tablet) 25 mg PO BID@0900,2100 COUNT INCLUDES THE [facility] Last Admin: 02/01/22 20:16 Dose: 25 mg Multivitamins (K-Xrgzdia-Tbmdutn C Tablet) 1 each PO DAILY COUNT INCLUDES THE [facility] Last Admin: 02/01/22 08:20 Dose: 1 each Nifedipine (Nifedipine Er (24 Hr) 30 Mg Tablet) 60 mg PO DAILY COUNT INCLUDES THE [facility] Last Admin: 02/01/22 08:19 Dose: 60 mg Ondansetron HCl (Ondansetron 2 Mg/Ml Sdv 2 Ml) 4 mg IVP Q6H PRN PRN Reason: NAUSEA AND VOMITING Sevelamer Carbonate (Sevelamer 800 Mg Tablet) 1,600 mg PO TID COUNT INCLUDES THE [facility] Last Admin: 02/01/22 20:15 Dose: 1,600 mg Sodium Bicarbonate (Sodium Bicarbonate 650 Mg Tablet) 650 mg PO TID COUNT INCLUDES THE [facility] Last Admin: 02/01/22 20:15 Dose: 650 mg Vitals/I&O/Wt Last Vital Signs Temp 98.1 F 02/02/22 08:00 Pulse 78 02/02/22 08:00 Resp 16 02/02/22 08:00 BP 171/103 02/02/22 08:00 Pulse Ox 96 02/02/22 08:00 O2 Del Method 02/02/22 08:00 02/01/22 02/02/22 02/02/22 22:59 06:59 14:59 Output Total 1475 / 1475 300 / 1775 Balance -1475 / -765 -300 / -1065 Weight last 48 hrs Weight 103.374 kg Weight 103.419 kg Physical Exam Narrative: comfortable, NARD in chair, VS noted- BP elevated heent- nc/at, eomi, anicteric neck supple lungs clear b/l heart reg abd soft, nt, nd, + bs ext + edema on rt side neuro- rt weaker then left arm, + no asterixis Urinary Catheter Management: Polanco: Cath Placed During This Visit: yes, but has since been removed by the nurse Reason for Continuing Indwelling Catheter: Accurate Measurement of Urinary Output in Critically Ill Patients Urinary Catheter Date of Insertion: 01/28/22 Urinary Catheter Time of Insertion: 15:03 Date Urinary Catheter Removed: 02/01/22 Time Urinary Catheter Discontinued: 20:06 Data : 02/02/22 02:50 02/02/22 02:50 Micro: Microbiology 01/30/22 08:00 Urine Culture - Final Urine,Clean Catch A&P Assessment and plan (1) KEL (acute kidney injury): 51 yr old man Acute CVA, KEL, accelerated HTN, brain mass. 1. ECHO- EF 65%,Severe concentric left ?ventricular hypertrophy. Grade II diastolic dysfunction, ?moderately elevated filling pressures. [place]gua-bc-gbkrgfyh tricuspid valve regurgitation. 2. HTN- hydralazine 50 tid, procardia XL 60 po d, metoprolol- 25 bid, and clonidine 0.1 inc to tid 3. KEL - renal us- RT 9cm very echogenic, left 10.3 cm markedly inc echogenicity -cr continues to rise u/a 3+ protein, 2+ blood, 1+ ketones -serologies pending LDL 113 -check hep serologies -based on htn, renal us -likely CKD - cr stable. pt states he fells better. prefers to f/u as outpt and not start HD now -k 3.9, bicarb 23,oxygenating well. no urgent indication for HD - avoid MRI w/ gadolinium as risk of Nephrogenic systemic fibrosis 4. Brain mass/ CVA- head mw-Aedz-mqqbjixmsddgo mass of increased density noted in the anterior LEFT parasagittal region. This is a mixed density with mass with areas of marked increased density which is probably calcification and not likely hemorrhage. There is no edema within the adjacent brain or midline shift. This mass is centered just to the LEFT of the interhemispheric falx measuring 2.9 x 2.5 cm and extends over a length of 2.8 cm. Favor this is an extra-axial mass which crosses the anterior interhemispheric falx into the RIGHT brain. There is a small CSF cleft also supporting extra-axial mass. No dural tail is identified. Again no adjacent edema. No prior infarct. Scattered foci of decreased attenuation in periventricular distribution from small vessel ischemic disease. Ventricles:? Normal size with no hydrocephalus. 5. anemia- iron sat 22% ferritin 384- iron 6. hyperlipidemia- lipitor 7. norml tsh 8. renal bone mineral metabolism- phos 7-1 binders. normal ca 8.8, albumin 3.8 check pth= 164 - can start vit d analouge 9.mild met acidosis- improving on na bicarb 10. social issue- ensure he has medical f/u and access to meds on dc seen and examined w/ RN- telehealth visit -informed consent for telehealth obtained renal okay for d/c w/ outpt renal f/u in 1 week. Status: Acute Plan as above Attestations Medical Necessity Statement*: htn, ckd Time Spent in Patient Care: 16 - 35 minutes (>than 50% of time spent in counselling and/or direct pt care on unit) . Coding Level of Care Code Acute Cement Grinding Mill Operator for Wilfrid Osorio Diagnoses KEL (acute kidney injury) N17.9
[2022-02-02] MEDS: NIFEdipine ER (24 hr) 30 mg Tablet 60 MG PO (09:39)
[2022-02-02] MEDS: aspirin 81 mg EC Tablet PO (09:40)
[2022-02-02] MEDS: hyDRALAzine 50 mg Tablet PO ×3 (09:40→20:19)
[2022-02-02] MEDS: sodium bicarbonate 650 mg Tablet PO ×3 (09:40→20:19)
[2022-02-02] MEDS: cloNIDine 0.1 mg Tablet PO (09:41)
[2022-02-02] MEDS: b-complex-vitamin c Tablet 1 EACH PO (09:41)
[2022-02-02] MEDS: sevelamer 800 mg Tablet 1600 MG PO ×3 (09:41→20:18)
[2022-02-02] MEDS: atorvastatin 40 mg Tablet PO (09:42)
[2022-02-02] MEDS: calcitriol 0.25 mcg Capsule PO (09:42)
--- NOTE | 2022-02-02 10:00 | MR_ITS ---
WS: [id number] MRI BRAIN WITHOUT CONTRAST HISTORY: left frontal calcified mass COMPARISON: None available. TECHNIQUE: Diffusion imaging, multiplanar T1, T2 and FLAIR imaging obtained. Numerous small acute foci of abnormal diffusion-weighted signal. Acute infarct in the LEFT lateral an d dorsal medulla. There are additional numerous, small focal scattered diffusion-weighted abnormaliti es consistent with lacunar infarcts predominantly within the RIGHT brain. Infarct in the RIGHT occipi adriana RIGHT frontal and temporal lobes. RIGHT parafalcine small lacunar infarcts. Questionable lacunar infarct in the LEFT hamm radiata and medial LEFT temporal lobe. No additional prior infarcts. There are additional numerous T2 and FLAIR signal hyperintensity scattered throughout the white matte r. Predominantly within a periventricular and supratentorial distribution. Again noted is a large intermediate signal, extra-axial mass centered in the anterior LEFT frontal lo be. There is a cleft of CSF therefore this is probably extra-axial. This mass is lobulated extending across the interhemispheric falx. Mass measures 2.5 x 2.6 cm and extends over length of 2.7 cm. There are a few tiny foci of low signal on the hemosiderin sequence. This is probably small calcifications that were noted on the prior CT versus focal areas of hemorrhage. Dural venous sinuses and [place] demonstrate no abnormality on this unenhanced studies. Paranasal sinuses: Clear. Mastoid air cells: Normal. Calvarium and scalp: Intact. MR/MR head wo con* [id number] IMPRESSION: 1. Acute diffusion-weighted infarcts involving the LEFT lateral and dorsal med tamiko. Additional small multifocal lacunar infarcts throughout the RIGHT brain i nvolving the occipital lobe, frontal and parietal lobes. Due to the different a rterial distributions consider embolic source. Posterior and anterior circulati on infarcts. If echocardiogram has not been performed this should be obtained t o evaluate for embolic source. Follow-up carotid ultrasound, CTA or MRA recomme nded of the carotid arteries and [place]. 2. Possible but indeterminate LEFT hamm radiata and medial LEFT temporal lob e tiny acute infarcts. 3. Lobulated mass with foci of calcification along the anterior LEFT interhemi spheric falx measures 2.5 x 2.6 x 2.7 cm. Mass extends across the falx into the RIGHT cerebrum. Favor this is probably a meningioma. Follow-up evaluation with IV contrast is recommended when the patient's renal function permits. Notified Carl Cyr MD at 02/02/2022 12:21 PM.
[2022-02-02] MEDS: metoprolol tartrate 25 mg Tablet PO ×2 (10:49→20:19)
--- NOTE | 2022-02-02 11:14 | PC.NURSE ---
pt eft floor at 1040 for a MRI
[2022-02-02] MEDS: ferric gluconate 125 MG in sodium chloride 0.9% (100 ml) 100 ML 110 MG IV (12:09)
[2022-02-02 15:37] LABS: ANCA Screen NEGATIVE (NEGATIVE)
--- NOTE | 2022-02-02 16:02 | PM.PN ---
Subjective Subjective: feels better. improved strength and appetite. no n/v/f/c/desai/d/leg pains. walking improving I was called by radiology who notes that on MRI there is distribution of strokes most notable left front but also to a lesser degree right front and right posterior circulation she wants me to look into the possibility of embolic source Vitals/I&O/Wt Last Vital Signs Temp 98.1 F 02/02/22 08:00 Pulse 75 02/02/22 14:45 Resp 16 02/02/22 08:00 BP 179/93 02/02/22 13:00 Pulse Ox 96 02/02/22 08:00 O2 Del Method 02/02/22 08:00 02/02/22 02/02/22 02/02/22 06:59 14:59 22:59 Intake Total 480 / 480 Output Total 300 / 1775 Balance -300 / -1065 480 / 480 Weight last 48 hrs Weight 103.374 kg Weight 103.419 kg Physical Exam Narrative: General well-developed well-nourished male in no acute cardiopulmonary stress Lid lag noted on the right eye CV regular rate and rhythm lungs clear to auscultation bilateral Speech clear Patient with right hemiplegia less severe as he can get his right arm up 6 inches above his head now Mentation alert and oriented x3 Urinary Catheter Management: Polanco: Cath Placed During This Visit: yes, but has since been removed by the nurse Reason for Continuing Indwelling Catheter: Accurate Measurement of Urinary Output in Critically Ill Patients Urinary Catheter Date of Insertion: 01/28/22 Urinary Catheter Time of Insertion: 15:03 Date Urinary Catheter Removed: 02/01/22 Time Urinary Catheter Discontinued: 20:06 Data : 02/02/22 02:50 02/02/22 02:50 Micro: Microbiology 01/30/22 08:00 Urine Culture - Final Urine,Clean Catch Other data: Note carotid Dopplers showed no significant stenosis of the carotids or vertebrals and echo showed EF 60% with diastolic dysfunction but no emboli source earlier this admission A&P Assessment and plan (1) CVA (cerebral vascular accident): left-sided CVA due to uncontrolled hypertension no intervene able carotid lesions no A. fib or valvular concern thus far identified however the MRI is concerning for embolic source CT head showed small vessel ischemic disease but called me personally today and voiced concerns regarding embolic findings on the more sensitive MRI Continue ST/OT/PT consultations Aspirin 81 mg daily. Initiated statin and noted that his cholesterol only mildly elevated blood pressure elevated again so will increase clonidine to 0.2 mg twice a day I spoke with Dr. Borden who will review the echo. We may need to do it with contrast if no findings found he recommends discussion with neurology Status: Acute (2) KEL (acute kidney injury): Appears to be hypertensive nephropathy with proteinuria Note that urinalysis have 3+ protein but no significant hematuria Nephrology consultation noted considering dialysis Renal failure diet please I filled out paperwork for stage V kidney disease today help the patient obtain much-needed Medicare coverage Status: Acute (3) Accelerated hypertension: Placed on nicardipine in the emergency department and stopped Changed to oral medications. labetolol stopped Continue hydralazine, nifedipine, metoprolol and clonidine Status: Acute (4) Brain mass: This appears to be an incidental finding at this time. There is no evidence of surrounding edema and it is calcified. Location does not seem to explain right hand weakness. Monitor for any seizure activity MRI to delineate further non contrast as renal function is terrible still See MRI results Status: Acute Plan Acute CVA: CT head wo con: Mixed density anterior LEFT parasagittal mass measures 2.9 x 2.5 cm and extends over length of 2.8 cm. Increased density is probably calcification within a meningioma. Favor this is an extra-axial mass. No edema within the adjacent brain or sulcal effacement. Recommend follow-up MRI brain with and without contrast to better evaluate for a dural tail and extra-axial position. Mild small vessel ischemic disease. CV carotid duplex BI* ?Bilateral ICA stenosis less than 50% 2D echo: Normal left ventricular size and systolic function with no ?regional wall motion abnormalities. Left ventricular ejection ?fraction is estimated at 65 %. Severe concentric left ?ventricular hypertrophy. Grade II diastolic dysfunction, ?moderately elevated filling pressures. [id number]-[id number] tricuspid valve regurgitation.? No prior siilar studies to compare. CTA head and neck with contrast could not be done: Due to advanced CKD. Brain mass: Incidental finding on CT, will need further outpatient work-up MRI today brain mass again seen. Not able to give contrast to look for meningioma findings Multiple areas of infarct were suggested Full code Heparin subcutaneous for DVT prophylaxis Attestations Medical Necessity Statement*: Additional day in the hospital for blood pressure control and for input from utility engineer regarding the possibility of embolic source Time Spent in Patient Care: 40 minutes spent in evaluation coronation care for this patient today Coding Level of Care Code Acute Medical Genetics Director for Wilfrid Fwasia History Comprehensive Exam Detailed Medical Decision Making High Complexity Diagnoses CVA (cerebral vascular accident) I63.9 KEL (acute kidney injury) N17.9 Accelerated hypertension I10 Brain mass G93.89
[2022-02-02] MEDS: cloNIDine 0.1 mg Tablet 0.2 MG PO (18:01)
--- NOTE | 2022-02-02 20:16 | USCV_ITS ---
Greg Hong Age: 51 Gender: M : 1970 Exam Date: 02/02/2022 23:02 Ordering Phys: Albert Garcia MD Technologist: BRUCE [place] [facility] [place]: bilateral LE mild edema and numbness x 4-5 days. No history of DVT per patient HISTORY: bilateral LE mild edema and numbness x 4-5 days. No history of DVT per patient PROCEDURES: Venous duplex imaging was performed in bilateral lower extremities. The venous duplex Doppler examination of both lower extremities was performed in the standard fashion. The following venous structures were evaluated: common femoral vein, profunda vein, proximal portion of the greater saphenous vein, superficial femoral vein, and the popliteal vein. In addition, the posterior tibial and peroneal veins were evaluated. Serial compression, augmentation maneuvers, and spectral Doppler flow evaluation were performed, which were normal. Bilaterally, the common femoral, superficial femoral, profunda femoral, popliteal, posterior tibial, greater saphenous veins, and the peroneal veins were identified and interrogated in the standard fashion. These veins were found to be easily compressible with spontaneous blood flow. No evidence of thrombus noted. CONCLUSIONS No evidence of right lower extremity DVT. No evidence of left lower extremity DVT. Carl Bell MD (Electronically Signed) Final Date: 03 February 2022 08:58 S
--- NOTE | 2022-02-02 20:25 | PC.NURSE ---
Patient c/o numbness and mild pain to right lower extremity. Patient and concerned for possible DVT. Spoke with Dr Garcia and received orders to obtain d-dimer and venous duplex bilateral lower extremities. RBVO
[2022-02-02 21:37] LABS: D Dimer 0.88 ug/mIFEU (0-0.59)
[2022-02-03] VITALS (9 sets, daily range): BP systolic 148–178; BP diastolic 92–104; PULSE 65–85; RESP 16–21; TEMP 36.6–37; O2SAT 96–98
[2022-02-03] MEDS: heparin 5,000 unit/mL INJ 1 mL 5000 UNIT SUBCUT ×2 (00:55→13:10)
[2022-02-03 05:50] LABS: Basophils # 0.1 10^3/uL (0.0-0.1); Basophils % 0.6 %; Eosinophils # 0.6 10^3/uL (0.0-0.8); Eosinophils % 6.7 %; Hematocrit 31.7 % (42.0-52.0); Lymphocytes # 1.3 10^3/uL (0.8-4.8); Lymphocytes % 14.3 %; Mean Corpuscular HGB Conc 31.5 g/dL (30.0-36.0); Mean Corpuscular Hemoglobin 28.9 pg (28.0-34.0); Mean Corpuscular Volume 91.6 fl (80-94); Mean Platelet Volume 9.9 fL (7.4-10.4); Monocytes # 0.8 10^3/uL (0.2-0.9); Monocytes % 8.8 %; Neutrophils % 68.8 %; Nucleated Red Blood Cells % 0 %; Platelet Count 207 10^3/cmm (130-400); Red Blood Count 3.46 10^6/uL (4.1-5.3); Red Cell Distribution Width 14.6 % (12.1-15.1)
[2022-02-03 06:05] LABS: Alanine Aminotransferase 21 U/L (0-41); Albumin Level 3.3 g/dL (3.5-5.2); Alkaline Phosphatase 96 U/L (40-130); Anion Gap 20.9 (5-19); Aspartate Amino Transferase 24 U/L (0-40); Calcium 8.7 mg/dL (8.5-10.5); Carbon Dioxide 19 mmol/L (22-29); Chloride 103 mmol/L (98-107); Globulin 2.7 g/dL (1.3-4.6); Glomerular Filtration Rate 7.5 mL/min (90-130); Glucose 85 mg/dL (65-115); Magnesium 2.3 mg/dL (1.7-2.3); Osmolality Calculated 313 mOsm/kg (285-295); Potassium 3.9 mmol/L (3.5-5.1); Sodium 139 mmol/L (136-145); Total Bilirubin 0.3 mg/dL (0.15-1.2)
[2022-02-03 06:53] LABS: Blood Urea Nitrogen 85 mg/dL (6-20)
[2022-02-03] MEDS: cloNIDine 0.1 mg Tablet 0.2 MG PO ×2 (08:57→19:17)
[2022-02-03] MEDS: sevelamer 800 mg Tablet 1600 MG PO ×3 (08:57→20:40)
[2022-02-03] MEDS: b-complex-vitamin c Tablet 1 EACH PO (08:58)
[2022-02-03] MEDS: sodium bicarbonate 650 mg Tablet PO ×3 (08:58→20:40)
[2022-02-03] MEDS: atorvastatin 40 mg Tablet PO (08:58)
[2022-02-03] MEDS: calcitriol 0.25 mcg Capsule PO (08:58)
[2022-02-03] MEDS: hyDRALAzine 50 mg Tablet PO ×3 (08:58→20:40)
[2022-02-03] MEDS: NIFEdipine ER (24 hr) 30 mg Tablet 60 MG PO (08:58)
[2022-02-03] MEDS: aspirin 81 mg EC Tablet PO (08:58)
[2022-02-03] MEDS: metoprolol tartrate 25 mg Tablet PO ×2 (08:58→15:05)
--- NOTE | 2022-02-03 09:26 | PM.PN ---
Subjective Subjective: no new complaints states he is not sure he wants dialysis Vitals/I&O/Wt Last Vital Signs Temp 97.8 F 02/03/22 08:00 Pulse 85 02/03/22 08:00 Resp 16 02/03/22 08:00 BP 174/99 02/03/22 08:00 Pulse Ox 98 02/03/22 08:00 O2 Del Method 02/03/22 08:00 02/02/22 02/03/22 02/03/22 22:59 06:59 14:59 Intake Total 710 / 1190 Output Total 1000 / 1000 875 / 1875 Balance -290 / 190 -875 / -685 Weight last 48 hrs Weight 103.782 kg Weight 103.374 kg Physical Exam Const: COMMON NORMALS: no acute distress and alert Neuro: SENSORIUM/ORIENTATION: Yes alert Urinary Catheter Management: Polanco: Cath Placed During This Visit: yes, but has since been removed by the nurse Reason for Continuing Indwelling Catheter: Accurate Measurement of Urinary Output in Critically Ill Patients Urinary Catheter Date of Insertion: 01/28/22 Urinary Catheter Time of Insertion: 15:03 Date Urinary Catheter Removed: 02/01/22 Time Urinary Catheter Discontinued: 20:06 Data : 02/03/22 05:20 02/03/22 05:20 Other data: Seen via telehealth with assistance of RN at bedside A&P Assessment and plan (1) KEL (acute kidney injury): 1. Severe hypertension with CVA, severe concentric left ?ventricular hypertrophy, Stage 5 CKD/ESRD. Medications are being increased. Hydralazine can be increased to 100 mg TID. Try to simplify regimen due to likelihood of noncompliance 2. Metabolic acidosis on oral sodium bicarbonate 3. Anemia, iron replete 4. Hyperphosphatemia, renal diet, increase sevelemar I explained to Greg that his current medical problems (ESRD, CVA, LVH) are due to uncontrolled hypertension. Cardiac and brain function will continue to deteriorate without good blood pressure control. He has option of no dialysis, but should prepare for end of life and consider hospice care if he chooses not to receive dialysis. Renal okay for d/c w/ outpt renal f/u in 1 week. Status: Acute Plan as above Attestations Medical Necessity Statement*: see above Time Spent in Patient Care: 16 - 35 minutes Coding Level of Care Code Acute Tetryl Nitrator Operator for Chg Fwd Diagnoses KEL (acute kidney injury) N17.9
[2022-02-03] MEDS: ferric gluconate 125 MG in sodium chloride 0.9% (100 ml) 100 ML 110 MG IV (10:59)
[2022-02-03 12:03] LABS: Vit D 1,25 (Oh)2, Total 12 pg/mL (18-72); Vit D2 1,25 (Oh)2 <8 pg/mL; Vit D3 1,25 (Oh)2 12 pg/mL
--- NOTE | 2022-02-03 14:47 | P.CONIM_ITS ---
Providers/Reason For Consult Consulting Physician/Specialty*: Gm Borden MD/ Cardiology Reason for Consult*: Stroke Requesting Physician: Dr Cyr Attending Physician: Carl Cyr MD History of Present Illness History of Present Illness Greg Hong is a 51 year old male with past medical history of hypertension presented to the hospital with hypertensive emergency and CVA. Had slurred speech. Cardiology was consulted as imaging shows possible embolic source of stroke given multiple vascular territories involvement. Echocardiogram showed normal LV systolic function. No LV thrombus was seen. Patient does not have arrhythmia history. desk monitor and EKGs reviewed. No evidence of atrial fibrillation. Patient also found to have KEL. Review of Systems Narrative: CONSTITUTIONAL: No fever chills weight loss or gain or night sweats. [] HEENT: Normocephalic, atraumatic.[] RESPIRATORY: No cough, sputum, hemoptysis or wheezing.[] CARDIOVASCULAR: No shortness of breath, chest pain, PND, orthopnea, lower extremity edema, presyncope or syncope. [] GI: no nausea vomiting diarrhea. [] INSTALLATIONS INSPECTOR: Right-sided weakness MUSCULOSKELETAL: No knee or joint pain or rashes. [] Medications/Allergies Home Medications Medication Instructions Recorded Confirmed Last Taken Type ascorbic acid (vitamin C) 1,000 mg 500 mg PO BID 01/27/22 01/27/22 Unknown History tablet (Vitamin C) astaxanthin 4 mg capsule 4 mg PO DAILY 01/27/22 01/27/22 Unknown History cholecalciferol (vitamin D3) 50 50 mcg PO DAILY 01/27/22 01/27/22 Unknown History mcg (2,000 unit) capsule (Vitamin D3) vitamin K2 40 mcg tablet 80 mcg PO DAILY 01/27/22 01/27/22 Unknown History Allergies Allergy/AdvReac Type Severity Reaction Status Date / Time No Known Allergies Allergy Verified 01/27/22 09:31 Current Medications Generic Name Dose Route Start Last Admin Trade Name Freq PRN Reason Stop Dose Admin Aspirin 81 mg 01/28/22 09:00 02/03/22 08:58 Aspirin 81 Mg Ec Tablet PO 81 mg DAILY KINGA Administration Atorvastatin Calcium 40 mg 01/28/22 09:00 02/03/22 08:58 Atorvastatin 40 Mg Tablet PO 40 mg DAILY KINGA Administration Calcitriol 0.25 mcg 01/31/22 10:15 02/03/22 08:58 Calcitriol 0.25 Mcg Capsule PO 0.25 mcg DAILY KINGA Administration Clonidine HCl 0.2 mg 02/02/22 18:00 02/03/22 08:57 Clonidine 0.1 Mg Tablet PO 0.2 mg BID KINGA Administration Heparin Sodium (Porcine) 5,000 unit 01/27/22 13:12 02/03/22 13:10 Heparin 5,000 Unit/Ml Inj 1 Ml SUBCUT 5,000 unit Q12H KINGA Administration Hydralazine HCl 50 mg 01/29/22 09:00 02/03/22 08:58 Hydralazine 50 Mg Tablet PO 50 mg TID KINGA Administration Ferric Sodium Gluconate 125 mg 110 mls @ 110 mls/hr 01/30/22 09:00 02/03/22 12:31 / Sodium Chloride IV 02/06/22 09:59 Infused Q24H KINGA Infusion Metoprolol Tartrate 25 mg 02/02/22 21:00 02/03/22 08:58 Metoprolol Tartrate 25 Mg Tablet PO 25 mg TID KINGA Administration Multivitamins 1 each 01/30/22 09:00 02/03/22 08:58 R-Empqega-Wnxnxzm C Tablet PO 1 each DAILY KINGA Administration Nifedipine 60 mg 01/29/22 08:00 02/03/22 08:58 Nifedipine Er (24 Hr) 30 Mg Tablet PO 60 mg DAILY KINGA Administration Sevelamer Carbonate 1,600 mg 01/31/22 15:00 02/03/22 08:57 Sevelamer 800 Mg Tablet PO 1,600 mg TID KINGA Administration Sodium Bicarbonate 650 mg 01/31/22 15:00 02/03/22 08:58 Sodium Bicarbonate 650 Mg Tablet PO 650 mg TID KINGA Administration PFSH Acute PFSH: Medical History Hypertension Family History Other Hypertension Social History Smoking and tobacco status: never smoked Alcohol intake: never Vitals/I&O/Wt Last Vital Signs Temp 97.8 F 02/03/22 12:00 Pulse 72 02/03/22 12:00 Resp 16 02/03/22 12:00 BP 155/95 02/03/22 12:00 Pulse Ox 98 02/03/22 12:00 O2 Del Method 02/03/22 12:00 02/02/22 02/03/22 02/03/22 22:59 06:59 14:59 Intake Total 710 / 1190 950 / 950 Output Total 1000 / 1000 875 / 1875 400 / 400 Balance -290 / 190 -875 / -685 550 / 550 Weight last 48 hrs Weight 228 lb 12.8 oz Weight 227 lb 14.4 oz Physical Exam Narrative: GENERAL: Patient is alert, awake and oriented x3. [] NECK: No jugular vein distension. [] HEENT: No cyanosis. No icterus. No pallor. [] HEART: Regular S1 and S2. No murmur, rub or gallop. [] LUNGS: Clear to auscultate bilaterally. [] ABDOMEN: Soft, nontender and nondistended. Positive bowel sounds. No guarding, rebound or tenderness. [] CENTRAL NERVOUS SYSTEM: Right-sided weakness EXTREMITIES: Lower extremities with 1+ edema bilaterally. Pulses palpable in the lower extremities, both dorsalis pedis and posterior tibial. [] Urinary Catheter Management: Polanco: Cath Placed During This Visit: yes, but has since been removed by the nurse Reason for Continuing Indwelling Catheter: Accurate Measurement of Urinary Output in Critically Ill Patients Urinary Catheter Date of Insertion: 01/28/22 Urinary Catheter Time of Insertion: 15:03 Date Urinary Catheter Removed: 02/01/22 Time Urinary Catheter Discontinued: 20:06 Data : 02/03/22 05:20 02/03/22 05:20 A&P Assessment and plan (1) CVA (cerebral vascular accident): Status: Acute (2) KEL (acute kidney injury): Status: Acute (3) Accelerated hypertension: Status: Acute Plan Patient presented with a stroke. Imaging showing multiple arterial territories involved increasing suspicion for embolic source. Echocardiogram does not show any LV thrombus. LV function is normal. No arrhythmias noted on telemetry or EKGs. Will recommend neurology consultation and if likelihood of embolic source is very high given multiple territory involvement, can consider anticoagulation. At time of discharge patient will benefit from event monitor. Patient lower extremity has a swelling. Will benefit from a venous duplex to rule out DVT. As outpatient can proceed with FRIDA with bubble study Patient blood pressure is still elevated. Uptitrate antihypertensive regimen. Can increase hydralazine and metoprolol. Thank you for involving us with care of this patient. Please call with questions Consult Attestations Medical Necessity Statement: Care expected to cross 2 midnights. Coding Level of Care Code Acute Pediatric Social Worker for Wilfrid Osorio Diagnoses CVA (cerebral vascular accident) I63.9 KEL (acute kidney injury) N17.9 Accelerated hypertension I10
--- NOTE | 2022-02-03 20:01 | P.PN_ITS ---
Subjective Subjective: Discussed case with Haleigh Nichols at [facility] neurology she tells me that in the absence of identified embolic source even with suspected embolic appearing strokes we do not benefit from anticoagulation. She does suggest additional work-up with aortic dedicated ultrasound, FRIDA with bubble study, sed rate and C-reactive protein. I requested that the MRI, CTA and carotid Dopplers be pushed to [facility] for their subsequent review. She says a hematology consult would also be considered Medications: Reviewed: Yes Vitals/I&O/Wt Last Vital Signs Temp 97.8 F 02/03/22 12:00 Pulse 71 02/03/22 15:50 Resp 16 02/03/22 15:50 BP 178/100 02/03/22 15:50 Pulse Ox 98 02/03/22 15:50 O2 Del Method 02/03/22 15:50 02/03/22 02/03/22 02/03/22 06:59 14:59 22:59 Intake Total 950 / 950 Output Total 875 / 1875 400 / 400 Balance -875 / -685 550 / 550 Weight last 48 hrs Weight 103.782 kg Weight 103.374 kg Physical Exam Narrative: General well-developed well-nourished male in no acute cardiopulmonary stress Lid lag noted on the right eye CV regular rate and rhythm lungs clear to auscultation bilateral Speech clear Patient with right hemiplegia less severe as he can get his right arm up 6 inches above his head now Mentation alert and oriented x3 Urinary Catheter Management: Polanco: Cath Placed During This Visit: yes, but has since been removed by the nurse Reason for Continuing Indwelling Catheter: Accurate Measurement of Urinary Output in Critically Ill Patients Urinary Catheter Date of Insertion: 01/28/22 Urinary Catheter Time of Insertion: 15:03 Date Urinary Catheter Removed: 02/01/22 Time Urinary Catheter Discontinued: 20:06 Data : 02/03/22 05:20 02/03/22 05:20 A&P Assessment and plan (1) CVA (cerebral vascular accident): left-sided CVA due to uncontrolled hypertension no intervene able carotid lesions no A. fib or valvular concern thus far identified however the MRI is concerning for embolic source CT head showed small vessel ischemic disease but called me personally today and voiced concerns regarding embolic findings on the more sensitive MRI Continue ST/OT/PT consultations Aspirin 81 mg daily. Initiated statin and noted that his cholesterol only mildly elevated blood pressure elevated again so will increase clonidine to 0.2 mg twice a day I ordered FRIDA with bubble study, thoracic aorta evaluation, DIANE, sed rate, CRP Status: Acute (2) KEL (acute kidney injury): Appears to be hypertensive nephropathy with proteinuria Note that urinalysis have 3+ protein but no significant hematuria Nephrology consultation noted considering dialysis Renal failure diet please I filled out paperwork for stage V kidney disease today help the patient obtain much-needed Medicare coverage Status: Acute (3) Accelerated hypertension: Placed on nicardipine in the emergency department and stopped Changed to oral medications. labetolol stopped Continue hydralazine, nifedipine, metoprolol and clonidine Increased dose for goal 150/90 or lower Status: Acute (4) Brain mass: This appears to be an incidental finding at this time. There is no evidence of surrounding edema and it is calcified. Location does not seem to explain right hand weakness. Monitor for any seizure activity MRI to delineate further non contrast as renal function is terrible still See MRI results Status: Acute Plan Acute CVA: CT head wo con: Mixed density anterior LEFT parasagittal mass measures 2.9 x 2.5 cm and extends over length of 2.8 cm. Increased density is probably calcification within a meningioma. Favor this is an extra-axial mass. No edema within the adjacent brain or sulcal effacement. Recommend follow-up MRI brain with and without contrast to better evaluate for a dural tail and extra-axial position. Mild small vessel ischemic disease. CV carotid duplex BI* ?Bilateral ICA stenosis less than 50% 2D echo: Normal left ventricular size and systolic function with no ?regional wall motion abnormalities. Left ventricular ejection ?fraction is estimated at 65 %. Severe concentric left ?ventricular hypertrophy. Grade II diastolic dysfunction, ?moderately elevated filling pressures. [id number] tricuspid valve regurgitation.? No prior siilar studies to compare. CTA head and neck with contrast could not be done: Due to advanced CKD. Brain mass: Incidental finding on CT, will need further outpatient work-up MRI today brain mass again seen. 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
[2022-02-03] MEDS: carvedilol 12.5 mg Tablet PO (20:40)
[2022-02-04] VITALS (10 sets, daily range): BP systolic 132–169; BP diastolic 80–101; PULSE 65–79; RESP 17–18; TEMP 36.5–36.9; O2SAT 96–98
[2022-02-04] MEDS: heparin 5,000 unit/mL INJ 1 mL 5000 UNIT SUBCUT ×2 (01:09→12:11)
--- NOTE | 2022-02-04 04:16 | PC.NURSE ---
Spoke with regarding patients complaint of constipation. ordered PRN Senna s and prn mag citrate.
[2022-02-04 04:59] LABS: Basophils # 0.1 10^3/uL (0.0-0.1); Basophils % 0.5 %; Eosinophils # 0.7 10^3/uL (0.0-0.8); Eosinophils % 7.3 %; Hematocrit 29.2 % (42.0-52.0); Hemoglobin 9.3 g/dL (11.7-16.6); Lymphocytes # 1.1 10^3/uL (0.8-4.8); Lymphocytes % 11.5 %; Mean Corpuscular HGB Conc 31.8 g/dL (30.0-36.0); Mean Corpuscular Hemoglobin 29.2 pg (28.0-34.0); Mean Corpuscular Volume 91.5 fl (80-94); Mean Platelet Volume 10.4 fL (7.4-10.4); Monocytes # 0.9 10^3/uL (0.2-0.9); Monocytes % 9.4 %; Neutrophils # 6.86 10^3/uL (1.8-7.7); Neutrophils % 70.8 %; Nucleated Red Blood Cells % 0 %; Platelet Count 196 10^3/cmm (130-400); Red Blood Count 3.19 10^6/uL (4.1-5.3); Red Cell Distribution Width 14.3 % (12.1-15.1); White Blood Count 9.7 10^3/uL (4.0-10.0)
[2022-02-04 05:27] LABS: Alanine Aminotransferase 25 U/L (0-41); Albumin Level 3.1 g/dL (3.5-5.2); Alkaline Phosphatase 93 U/L (40-130); Anion Gap 17.4 (5-19); Aspartate Amino Transferase 21 U/L (0-40); Calcium 8.5 mg/dL (8.5-10.5); Carbon Dioxide 22 mmol/L (22-29); Chloride 103 mmol/L (98-107); Globulin 2.6 g/dL (1.3-4.6); Glomerular Filtration Rate 8.9 mL/min (90-130); Glucose 87 mg/dL (65-115); Magnesium 2.4 mg/dL (1.7-2.3); Osmolality Calculated 314 mOsm/kg (285-295); Phosphorus 7.2 mg/dL (2.5-4.5); Potassium 4.4 mmol/L (3.5-5.1); Sodium 138 mmol/L (136-145); Total Bilirubin 0.2 mg/dL (0.15-1.2); Total Protein 5.7 g/dL (6.6-8.7)
[2022-02-04 06:16] LABS: Blood Urea Nitrogen 92 mg/dL (6-20)
[2022-02-04] MEDS: sennosides-docusate Tablet 1 TAB PO (06:38)
[2022-02-04] MEDS: sodium bicarbonate 650 mg Tablet PO ×3 (09:36→20:07)
[2022-02-04] MEDS: carvedilol 12.5 mg Tablet PO ×2 (09:36→18:03)
[2022-02-04] MEDS: b-complex-vitamin c Tablet 1 EACH PO (09:36)
[2022-02-04] MEDS: sevelamer 800 mg Tablet 1600 MG PO ×3 (09:36→20:07)
[2022-02-04] MEDS: cloNIDine 0.1 mg Tablet 0.2 MG PO ×2 (09:36→18:04)
[2022-02-04] MEDS: hyDRALAzine 50 mg Tablet PO ×3 (09:37→20:07)
[2022-02-04] MEDS: aspirin 81 mg EC Tablet PO (09:37)
[2022-02-04] MEDS: NIFEdipine ER (24 hr) 30 mg Tablet 90 MG PO (09:37)
[2022-02-04] MEDS: calcitriol 0.25 mcg Capsule PO (09:37)
[2022-02-04] MEDS: atorvastatin 40 mg Tablet PO (09:37)
[2022-02-04] MEDS: ferric gluconate 125 MG in sodium chloride 0.9% (100 ml) 100 ML 110 MG IV (09:38)
--- NOTE | 2022-02-04 10:33 | P.PN_ITS ---
Subjective Subjective: 51-year-old male admitted with CVA and acute nonoliguric renal failure with severely lct-jz-[id number] blood pressure 250s over 150. The patient did okay without dialysis from standpoint of volume and electrolytes but has had hypertension and uremia. His renal function has not changed much with creatinine still 6.6-7.6 Medications: Reviewed: Yes Vitals/I&O/Wt Last Vital Signs Temp 97.9 F 02/04/22 08:00 Pulse 74 02/04/22 08:00 Resp 18 02/04/22 08:00 BP 169/98 02/04/22 09:36 Pulse Ox 97 02/04/22 08:00 O2 Del Method 02/04/22 08:00 02/03/22 02/04/22 02/04/22 22:59 06:59 14:59 Intake Total 220 / 1170 Output Total 600 / 1000 0 / 1000 Balance -600 / -50 220 / 170 Weight last 48 hrs Weight 101.151 kg Weight 103.782 kg Physical Exam Narrative: General well-developed well-nourished male in no acute cardiopulmonary stress Lid lag noted on the right eye CV regular rate and rhythm lungs clear to auscultation bilateral Speech clear Patient with right hemiplegia less severe as he can get his right arm up 8 inches above his head now Mentation alert and oriented x3 Urinary Catheter Management: Polanco: Cath Placed During This Visit: yes, but has since been removed by the nurse Reason for Continuing Indwelling Catheter: Accurate Measurement of Urinary Output in Critically Ill Patients Urinary Catheter Date of Insertion: 01/28/22 Urinary Catheter Time of Insertion: 15:03 Date Urinary Catheter Removed: 02/01/22 Time Urinary Catheter Discontinued: 20:06 Data : 02/04/22 04:00 02/04/22 04:00 A&P Assessment and plan (1) CVA (cerebral vascular accident): left-sided CVA due to uncontrolled hypertension no intervene able carotid lesions no A. fib or valvular concern thus far identified however the MRI is concerning for embolic source CT head showed small vessel ischemic disease but called me personally today and voiced concerns regarding embolic findings on the more sensitive MRI Continue ST/OT/PT consultations Aspirin 81 mg daily. Initiated statin and noted that his cholesterol only mildly elevated blood pressure elevated again so will increase clonidine to 0.2 mg twice a day I ordered FRIDA with bubble study, thoracic aorta evaluation, DIANE, sed rate, CRP Status: Acute (2) KEL (acute kidney injury): Appears to be hypertensive nephropathy with proteinuria Note that urinalysis have 3+ protein but no significant hematuria Nephrology consultation noted considering dialysis Renal failure diet please I filled out paperwork for stage V kidney disease today help the patient obtain much-needed Medicare coverage I spoke with patient and also with Dr. Garzon and Dr. Santacruz plan for peritoneal dialysis catheter placement and initiate PD Status: Acute (3) Accelerated hypertension: Placed on nicardipine in the emergency department and stopped Changed to oral medications. labetolol stopped Continue hydralazine, nifedipine, metoprolol and clonidine Increased dose for goal 150/90 or lower Status: Acute (4) Brain mass: This appears to be an incidental finding at this time. There is no evidence of surrounding edema and it is calcified. Location does not seem to explain right hand weakness. Monitor for any seizure activity See MRI results Status: Acute Plan Acute CVA: CT head wo con: Mixed density anterior LEFT parasagittal mass measures 2.9 x 2.5 cm and extends over length of 2.8 cm. Increased density is probably calcification within a meningioma. Favor this is an extra-axial mass. No edema within the adjacent brain or sulcal effacement. Recommend follow-up MRI brain with and without contrast to better evaluate for a dural tail and extra-axial position. Mild small vessel ischemic disease. CV carotid duplex BI* ?Bilateral ICA stenosis less than 50% 2D echo: Normal left ventricular size and systolic function with no ?regional wall motion abnormalities. Left ventricular ejection ?fraction is estimated at 65 %. Severe concentric left ?ventricular hypertrophy. Grade II diastolic dysfunction, ?moderately elevated filling pressures. Vzzt-sp-[id number] tricuspid valve regurgitation.? No prior siilar studies to compare. CTA head and neck with contrast could not be done: Due to advanced CKD. Brain mass: Incidental finding on CT, will need further outpatient work-up MRI today brain mass again seen. Not able to give contrast to look for meningioma findings Multiple areas of infarct were suggested Full code Heparin subcutaneous for DVT prophylaxis Attestations Medical Necessity Statement*: Patient will need to start peritoneal dialysis and consult for PD catheter has been made. Time Spent in Patient Care: 35 minutes spent in evaluation and coordination of care for this patient today. I did addiction treatment counselor the patient regarding this plan. I encouraged he and his to further discuss this with Dr. 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
--- NOTE | 2022-02-04 11:04 | P.PN_ITS ---
Subjective Subjective: no complaints Vitals/I&O/Wt Last Vital Signs Temp 97.9 F 02/04/22 08:00 Pulse 74 02/04/22 08:00 Resp 18 02/04/22 08:00 BP 169/98 02/04/22 09:36 Pulse Ox 97 02/04/22 08:00 O2 Del Method 02/04/22 08:00 02/03/22 02/04/22 02/04/22 22:59 06:59 14:59 Intake Total 220 / 1170 470 / 470 Output Total 600 / 1000 0 / 1000 Balance -600 / -50 220 / 170 470 / 470 Weight last 48 hrs Weight 101.151 kg Weight 103.782 kg Physical Exam Const: COMMON NORMALS: no acute distress and alert Neuro: SENSORIUM/ORIENTATION: Yes alert Urinary Catheter Management: Polanco: Cath Placed During This Visit: yes, but has since been removed by the nurse Reason for Continuing Indwelling Catheter: Accurate Measurement of Urinary Output in Critically Ill Patients Urinary Catheter Date of Insertion: 01/28/22 Urinary Catheter Time of Insertion: 15:03 Date Urinary Catheter Removed: 02/01/22 Time Urinary Catheter Discontinued: 20:06 Data : 02/04/22 04:00 02/04/22 04:00 Other data: seen via telehealth with assistance of RN at bedside A&P Assessment and plan (1) CKD (chronic kidney disease) stage 5, GFR less than 15 ml/min: Status: Acute (2) KEL (acute kidney injury): 1. Severe hypertension with CVA, severe concentric left ?ventricular hyp ertrophy, Stage 5 CKD/ESRD. Medications are being increased. Hydralazine can be increased to 100 mg TID. Try to simplify regimen due to likelihood of noncompliance 2. Metabolic acidosis on oral sodium bicarbonate - improved 3. Anemia, iron replete, Hb stable 4. Hyperphosphatemia, renal diet, sevelemar Please consult surgery to place long-term peritoneal dialysis catheter. Greg is agreeable. On Sunday, [facility] and arrange outpatient follow-up. 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
--- NOTE | 2022-02-04 17:16 | P.PN_ITS ---
Subjective Subjective: Patient is stable. Blood pressure is still elevated. Vitals/I&O/Wt Last Vital Signs Temp 97.7 F 02/04/22 12:00 Pulse 68 02/04/22 12:00 Resp 18 02/04/22 12:00 BP 144/84 02/04/22 12:00 Pulse Ox 98 02/04/22 12:00 O2 Del Method 02/04/22 12:00 02/04/22 02/04/22 02/04/22 06:59 14:59 22:59 Intake Total 220 / 1170 830 / 830 Output Total 0 / 1000 Balance 220 / 170 830 / 830 Weight last 48 hrs Weight 223 lb Weight 228 lb 12.8 oz Physical Exam Narrative: GENERAL: Patient is alert, awake and oriented x3. [] NECK: No jugular vein distension. [] HEENT: No cyanosis. No icterus. No pallor. [] HEART: Regular S1 and S2. No murmur, rub or gallop. [] LUNGS: Clear to auscultate bilaterally. [] ABDOMEN: Soft, nontender and nondistended. Positive bowel sounds. No guarding, rebound or tenderness. [] CENTRAL NERVOUS SYSTEM: Right-sided weakness EXTREMITIES: Lower extremities with 1+ edema bilaterally. Pulses palpable in the lower extremities, both dorsalis pedis and posterior tibial. [] Urinary Catheter Management: Polanco: Cath Placed During This Visit: yes, but has since been removed by the nurse Reason for Continuing Indwelling Catheter: Accurate Measurement of Urinary Output in Critically Ill Patients Urinary Catheter Date of Insertion: 01/28/22 Urinary Catheter Time of Insertion: 15:03 Date Urinary Catheter Removed: 02/01/22 Time Urinary Catheter Discontinued: 20:06 Data : 02/05/22 05:10 02/05/22 05:10 A&P Assessment and plan (1) CVA (cerebral vascular accident): Status: Acute (2) KEL (acute kidney injury): Status: Acute (3) Accelerated hypertension: Status: Acute Plan Patient presented with a stroke. Imaging showing multiple arterial territories involved increasing suspicion for embolic source. Echocardiogram does not show any LV thrombus. LV function is normal. No arrhythmias noted on telemetry or EKGs. Will recommend neurology consultation and if likelihood of embolic source is very high given multiple territory involvement, can consider anticoagulation. At time of discharge patient will benefit from event monitor. No DVT seen on venous duplex Order transthoracic echocardiogram with bubble study to rule out intracardiac shunt Patient blood pressure is still elevated. Uptitrate antihypertensive regimen failure. Dialysis will help with blood pressure control Thank you for involving us with care of this patient. Please call with questions Attestations Medical Necessity Statement*: Care expected to cross 2 midnights. Coding Level of Care Code Acute Locomotive Engineer Electric for Wilfrid Osorio Diagnoses CVA (cerebral vascular accident) I63.9 KEL (acute kidney injury) N17.9 Accelerated hypertension I10
--- NOTE | 2022-02-04 18:43 | USR_ITS ---
PROCEDURE INFORMATION: Exam: US Duplex Scan of Aorta, Inferior Vena Cava, Iliac Vasculature, or Bypass Grafts, Complete Exam date and time: 02/04/2022 7:54 AM Age: 51 years old Clinical indication: Abdominal or pelvic symptoms: Weakness; Additional info: Left and right anterior and left posterior circulation brain, look for possible ascending or thoracic aortic abnormality that would cause TECHNIQUE: Imaging protocol: Real-time duplex ultrasound scan of the Aorta, IVC, iliac vasculature, or bypass grafts in the abdomen with color Doppler flow and spectral waveform analysis with image documentation. Complete exam. COMPARISON: US renal BI* [id number] 01/27/2022 2:09 PM FINDINGS: Aorta: Unremarkable. No aneurysm. No dissection flap seen. No occlusion or significant stenosis. Normal waveform. The right common iliac artery appears unremarkable. The left common iliac artery appears unremarkable. US/CV duplex aorta [id number] IMPRESSION: Unremarkable sonographic appearance of the abdominal aorta. Please note that if evaluation of the thoracic aorta is desired, CTA would be recommended.
[2022-02-05] VITALS (11 sets, daily range): BP systolic 132–156; BP diastolic 71–93; PULSE 64–73; RESP 18–21; TEMP 36.4–36.8; O2SAT 95–98
--- NOTE | 2022-02-05 | USCV_ITS ---
Greg Hong Age: 51 Gender: M : 1970 Exam Date: 02/05/2022 10:55 Ordering Phys: Carl Cyr MD Technologist: Celestina Rojas [place] [facility] [place] Indication: This was to look at aortic arch. HISTORY: CVA Diameter (cm) AP x Transverse x Length Velocity (cm/s) Waveform Prox Aorta: x x Mid Aorta: x x Distal Aorta: x x Right Iliac Prox: x x Left Iliac Prox: x x Stent Prox Landing x x Aneurysmal Sac Max x x Lt Lat Sac Dim Rt Lat Sac Dim Stent Dist Landing x x Right Iliac Stent x x Left Iliac Stent x x Right Renal Art Left Renal Art FINDINGS: I have sent this to [facility]. I don't really have a prelim. Will wait for [facility] reading. The aortic root appeared to be of normal size. Proximal ascending aorta also appeared to be normal size. The arch of the aorta was found to have mild diffuse plaques within normal aortic dimensions CONCLUSIONS The aortic root, proximal ascending aorta and the arch of the aorta were found to be of normal size. The distal ascending aorta was not visualized well No evidence of any definite dissection. Study is of suboptimal quality Consider CTA, to better evaluate the distal ascending aorta and the aortic arch Dr Conchita Crowley MD [facility] (Electronically Signed) Final Date: 16 February 2022 08:17 S
[2022-02-05] MEDS: heparin 5,000 unit/mL INJ 1 mL 5000 UNIT SUBCUT ×2 (00:08→13:20)
[2022-02-05 05:28] LABS: Basophils # 0.1 10^3/uL (0.0-0.1); Basophils % 0.6 %; Eosinophils # 0.7 10^3/uL (0.0-0.8); Eosinophils % 7.8 %; Hematocrit 28.9 % (42.0-52.0); Hemoglobin 9.4 g/dL (11.7-16.6); Lymphocytes # 1.3 10^3/uL (0.8-4.8); Lymphocytes % 13.3 %; Mean Corpuscular HGB Conc 32.5 g/dL (30.0-36.0); Mean Corpuscular Hemoglobin 29.6 pg (28.0-34.0); Mean Corpuscular Volume 90.9 fl (80-94); Mean Platelet Volume 10.2 fL (7.4-10.4); Monocytes # 0.9 10^3/uL (0.2-0.9); Monocytes % 9.7 %; Neutrophils # 6.43 10^3/uL (1.8-7.7); Neutrophils % 68.2 %; Nucleated Red Blood Cells % 0 %; Platelet Count 194 10^3/cmm (130-400); Red Blood Count 3.18 10^6/uL (4.1-5.3); Red Cell Distribution Width 14.3 % (12.1-15.1); White Blood Count 9.4 10^3/uL (4.0-10.0)
[2022-02-05 05:58] LABS: Alanine Aminotransferase 23 U/L (0-41); Alkaline Phosphatase 92 U/L (40-130); Anion Gap 18.1 (5-19); Aspartate Amino Transferase 18 U/L (0-40); Calcium 8.3 mg/dL (8.5-10.5); Carbon Dioxide 22 mmol/L (22-29); Chloride 101 mmol/L (98-107); Globulin 2.7 g/dL (1.3-4.6); Glomerular Filtration Rate 8.6 mL/min (90-130); Glucose 95 mg/dL (65-115); Magnesium 2.3 mg/dL (1.7-2.3); Osmolality Calculated 313 mOsm/kg (285-295); Phosphorus 7.1 mg/dL (2.5-4.5); Potassium 4.1 mmol/L (3.5-5.1); Sodium 137 mmol/L (136-145); Total Bilirubin 0.2 mg/dL (0.15-1.2); Total Protein 5.7 g/dL (6.6-8.7)
[2022-02-05 06:15] LABS: Blood Urea Nitrogen 94 mg/dL (6-20)
[2022-02-05 06:17] LABS: Hepatitis B Core AB, Total Non-Reactive (Nonreactive); Hepatitis B Surface AB 3.5 (11.5-1000); Hepatitis B Surface Antigen Non-Reactive (Nonreactive); Hepatitis C Virus Antibody Non-Reactive (Nonreactive)
[2022-02-05] MEDS: cloNIDine 0.1 mg Tablet 0.2 MG PO ×2 (09:05→17:55)
[2022-02-05] MEDS: sevelamer 800 mg Tablet 1600 MG PO ×3 (09:05→20:57)
[2022-02-05] MEDS: calcitriol 0.25 mcg Capsule PO (09:05)
[2022-02-05] MEDS: sodium bicarbonate 650 mg Tablet PO ×3 (09:05→20:57)
[2022-02-05] MEDS: aspirin 81 mg EC Tablet PO (09:05)
[2022-02-05] MEDS: atorvastatin 40 mg Tablet PO (09:05)
[2022-02-05] MEDS: carvedilol 12.5 mg Tablet PO ×2 (09:05→17:55)
[2022-02-05] MEDS: NIFEdipine ER (24 hr) 30 mg Tablet 90 MG PO (09:05)
[2022-02-05] MEDS: b-complex-vitamin c Tablet 1 EACH PO (09:05)
[2022-02-05] MEDS: hyDRALAzine 50 mg Tablet PO ×3 (09:06→20:57)
--- NOTE | 2022-02-05 10:03 | P.PN_ITS ---
Subjective Subjective: no new complaints, current getting OT Vitals/I&O/Wt Last Vital Signs Temp 98.2 F 02/05/22 08:00 Pulse 71 02/05/22 08:00 Resp 18 02/05/22 08:00 BP 155/93 02/05/22 09:05 Pulse Ox 97 02/05/22 08:00 O2 Del Method 02/05/22 08:00 02/04/22 02/05/22 02/05/22 22:59 06:59 14:59 Intake Total 960 / 1790 700 / 2490 360 / 360 Balance 960 / 1790 700 / 2490 360 / 360 Weight last 48 hrs Weight 101.151 kg Weight 101.151 kg Physical Exam Const: COMMON NORMALS: no acute distress and alert Neuro: SENSORIUM/ORIENTATION: Yes alert Urinary Catheter Management: Polanco: Cath Placed During This Visit: yes, but has since been removed by the nurse Reason for Continuing Indwelling Catheter: Accurate Measurement of Urinary Output in Critically Ill Patients Urinary Catheter Date of Insertion: 01/28/22 Urinary Catheter Time of Insertion: 15:03 Date Urinary Catheter Removed: 02/01/22 Time Urinary Catheter Discontinued: 20:06 Data : 02/05/22 05:10 02/05/22 05:10 Other Labs: phos 7.1 A&P Assessment and plan (1) CKD (chronic kidney disease) stage 5, GFR less than 15 ml/min: seen via telemedicine with assistance of RN at bedside Status: Acute (2) KEL (acute kidney injury): 1. Severe hypertension with CVA, severe concentric left ?ventricular hypertrophy, Stage 5 CKD/ESRD. Medications are being increased. Hydralazine can be increased to 100 mg TID. Try to simplify regimen due to likelihood of noncompliance. Add ARB once dialysis initiated. 2. Metabolic acidosis on oral sodium bicarbonate - improved 3. Anemia, iron replete, Hb stable 4. Hyperphosphatemia, renal diet, sevelemar. stop calcitriol for now Please consult surgery to place long-term peritoneal dialysis catheter. Greg is agreeable. On Sunday[facility] and arrange outpatient follow-up. 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
[2022-02-05] MEDS: ferric gluconate 125 MG in sodium chloride 0.9% (100 ml) 100 ML 110 MG IV (10:25)
[2022-02-05] MEDS: nystatin powder 15 gm Btl 1 APPLIC TOPICAL ×2 (10:25→17:57)
--- NOTE | 2022-02-05 11:30 | PM.PN ---
Subjective Subjective: Patient received abdominal aortic ultrasound yesterday. I spoke with the ultrasound department and attempt will be made to look at the aortic arch. Although the patient had MRI suspicious for bilateral anterior and right posterior circulation stroke consistent with embolic etiology is hypertensive urgency and untreated hypertension was the previous working diagnosis. Carotid Doppler was negative for significant vascular disease. Vitals/I&O/Wt Last Vital Signs Temp 98.2 F 02/05/22 08:00 Pulse 71 02/05/22 08:00 Resp 18 02/05/22 08:00 BP 155/93 02/05/22 09:05 Pulse Ox 97 02/05/22 08:00 O2 Del Method 02/05/22 08:00 02/04/22 02/05/22 02/05/22 22:59 06:59 14:59 Intake Total 960 / 1790 700 / 2490 360 / 360 Balance 960 / 1790 700 / 2490 360 / 360 Weight last 48 hrs Weight 101.151 kg Weight 101.151 kg Physical Exam Narrative: General well-developed well-nourished male in no acute cardiopulmonary stress Lid lag noted on the right eye CV regular rate and rhythm lungs clear to auscultation bilateral Speech clear enough to be very intelligible with minimal dysarthria Patient with right hemiplegia less severe as he can get his right arm up 8 inches above his head now Mentation alert and oriented x3 Urinary Catheter Management: Polanco: Cath Placed During This Visit: yes, but has since been removed by the nurse Reason for Continuing Indwelling Catheter: Accurate Measurement of Urinary Output in Critically Ill Patients Urinary Catheter Date of Insertion: 01/28/22 Urinary Catheter Time of Insertion: 15:03 Date Urinary Catheter Removed: 02/01/22 Time Urinary Catheter Discontinued: 20:06 Data : 02/05/22 05:10 02/05/22 05:10 A&P Assessment and plan (1) CVA (cerebral vascular accident): left-sided CVA due to uncontrolled hypertension no intervene able carotid lesions no A. fib or valvular concern thus far identified however the MRI is concerning for embolic source CT head showed small vessel ischemic disease but called me personally today and voiced concerns regarding embolic findings on the more sensitive MRI Echo was good quality but will be repeated with bubble study. We will also perform MRA no contrast outpatient Holter monitor for 30 days should also be considered Continue ST/OT/PT consultations Aspirin 81 mg daily. Initiated statin and noted that his cholesterol only mildly elevated blood pressure elevated again so will increase clonidine to 0.2 mg twice a day I ordered echo with bubble study, thoracic aorta evaluation, , MRA brain no contrast Status: Acute (2) KEL (acute kidney injury): Appears to be hypertensive nephropathy with proteinuria Note that urinalysis have 3+ protein but no significant hematuria Nephrology consultation noted considering dialysis Renal failure diet please I filled out paperwork for stage V kidney disease today help the patient obtain much-needed Medicare coverage I spoke with patient and also with Dr. Garzon and Dr. Santacruz plan for peritoneal dialysis catheter placement and initiate PD Status: Acute (3) Accelerated hypertension: Placed on nicardipine in the emergency department and stopped Changed to oral medications. labetolol stopped Continue hydralazine, nifedipine, metoprolol and clonidine Increased dose for goal 150/90 or lower Status: Acute (4) Brain mass: This appears to be an incidental finding at this time. There is no evidence of surrounding edema and it is calcified. Location does not seem to explain right hand weakness. Monitor for any seizure activity See MRI results Status: Acute Plan Acute CVA: CT head wo con: Mixed density anterior LEFT parasagittal mass measures 2.9 x 2.5 cm and extends over length of 2.8 cm. Increased density is probably calcification within a meningioma. Favor this is an extra-axial mass. No edema within the adjacent brain or sulcal effacement. Recommend follow-up MRI brain with and without contrast to better evaluate for a dural tail and extra-axial position. Mild small vessel ischemic disease. CV carotid duplex BI* ?Bilateral ICA stenosis less than 50% 2D echo: Normal left ventricular size and systolic function with no ?regional wall motion abnormalities. Left ventricular ejection ?fraction is estimated at 65 %. Severe concentric left ?ventricular hypertrophy. Grade II diastolic dysfunction, ?moderately elevated filling pressures. [id number] tricuspid valve regurgitation.? No prior siilar studies to compare. CTA head and neck with contrast could not be done: Due to advanced CKD. Brain mass: Incidental finding on CT, will need further outpatient work-up MRI today brain mass again seen. Not able to give contrast to look for meningioma findings Multiple areas of infarct were suggested Full code Heparin subcutaneous for DVT prophylaxis Attestations Medical Necessity Statement*: Patient still receiving work-up including MRA and echo with bubble contrast study Awaiting peritoneal dialysis catheter and initiation of dialysis inpatient Time Spent in Patient Care: 35 minutes spent in evaluation and coordination of care for this patient today I also did fill out work papers for him to be on leave from his job at [email or web address] Coding Level of Care Code Acute Crucible Packer for Jaymeg Fwd History Comprehensive Exam Detailed Medical Decision Making High Complexity Diagnoses CVA (cerebral vascular accident) I63.9 KEL (acute kidney injury) N17.9 Accelerated hypertension I10 Brain mass G93.89
--- NOTE | 2022-02-05 11:38 | USCV_ITS ---
Gely Greg Age: 51 Gender: M : 1970 Exam Date: 02/05/2022 11:56 Ordering Phys: Carl Cyr MD Technologist: Celestina Rojas Exam Location: [facility] Indication: Buble study for embolic CVA BP: / HR: Rhythm: Sinus Technical Quality: Adequate MEASUREMENTS (Male / Female) Normal Values FINDINGS Left Ventricle Right Ventricle Right Atrium Left Atrium Mitral Valve Aortic Valve Tricuspid Valve Pulmonic Valve Pericardium Aorta IVC CONCLUSIONS This is limited echocardiogram with bubble study to rule out intracardiac shunting. LV systolic function is normal. No interatrial shunting seen on bubble study. Gm Borden MD (Electronically Signed) Final Date: 05 February 2022 13:58 S
--- NOTE | 2022-02-05 14:01 | P.PN_ITS ---
Subjective Subjective: Patient is stable. Blood pressure is improved. Vitals/I&O/Wt Last Vital Signs Temp 97.9 F 02/05/22 11:34 Pulse 67 02/05/22 11:34 Resp 20 H 02/05/22 11:34 BP 156/90 02/05/22 11:34 Pulse Ox 96 02/05/22 11:34 O2 Del Method 02/05/22 11:34 02/04/22 02/05/22 02/05/22 22:59 06:59 14:59 Intake Total 960 / 1790 700 / 2490 470 / 470 Balance 960 / 1790 700 / 2490 470 / 470 Weight last 48 hrs Weight 223 lb Weight 223 lb Physical Exam Narrative: GENERAL: Patient is alert, awake and oriented x3. [] NECK: No jugular vein distension. [] HEENT: No cyanosis. No icterus. No pallor. [] HEART: Regular S1 and S2. No murmur, rub or gallop. [] LUNGS: Clear to auscultate bilaterally. [] ABDOMEN: Soft, nontender and nondistended. Positive bowel sounds. No guarding, rebound or tenderness. [] CENTRAL NERVOUS SYSTEM: Right-sided weakness EXTREMITIES: Lower extremities with 1+ edema bilaterally. Pulses palpable in the lower extremities, both dorsalis pedis and posterior tibial. [] Urinary Catheter Management: Polanco: Cath Placed During This Visit: yes, but has since been removed by the nurse Reason for Continuing Indwelling Catheter: Accurate Measurement of Urinary Output in Critically Ill Patients Urinary Catheter Date of Insertion: 01/28/22 Urinary Catheter Time of Insertion: 15:03 Date Urinary Catheter Removed: 02/01/22 Time Urinary Catheter Discontinued: 20:06 Data : 02/05/22 05:10 02/05/22 05:10 A&P Assessment and plan (1) CVA (cerebral vascular accident): Status: Acute (2) KEL (acute kidney injury): Status: Acute (3) Accelerated hypertension: Status: Acute Plan Patient presented with a stroke. Imaging showing multiple arterial territories involved increasing suspicion for embolic source. Echocardiogram does not show any LV thrombus. LV function is normal. No arrhythmias noted on telemetry or EKGs. Will recommend neurology consultation and if likelihood of embolic source is very high given multiple territory involvement, can consider anticoagulation. At time of discharge patient will benefit from event monitor. No DVT seen on venous duplex Bubble study performed yesterday. No intracardiac shunt seen Patient blood pressure is still elevated. Uptitrate antihypertensive regimen failure. Dialysis will help with blood pressure control Thank you for involving us with care of this patient. Please call with questions Attestations Medical Necessity Statement*: Care expected to cross 2 midnights. Coding Level of Care Code Acute Debt Collector for Wilfrid Osorio Diagnoses CVA (cerebral vascular accident) I63.9 KEL (acute kidney injury) N17.9 Accelerated hypertension I10
[2022-02-05] MEDS: sennosides-docusate Tablet 1 TAB PO (17:54)
--- NOTE | 2022-02-05 19:55 | PC.NURSE ---
Spouse has provided exercise tools for patient to use at bedside to help increase right hand/arm strength. Patient and family very proactive with patient recovery. Patient performing well. Provided encouragement. Will continue to monitor.
--- NOTE | 2022-02-05 21:09 | P.CONIM_ITS ---
Providers/Reason For Consult Consulting Physician/Specialty*: Dr. Gerald Santacruz, DO/General surgery Reason for Consult*: Need for dialysis access Attending Physician: Carl Cyr MD History of Present Illness History of Present Illness Greg Hogn is a 51 year old male who presented to the hospital with a CVA along with hypertension and kidney injury. It was determined that he is in stage V chronic kidney disease and dialysis access was requested. 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 Patient denies any abdominal pain nausea or emesis Review of Systems General: Reports: 10 or more systems reviewed and unremarkable except in HPI and below Medications/Allergies Home Medications Medication Instructions Recorded Confirmed Last Taken Type ascorbic acid (vitamin C) 1,000 mg 500 mg PO BID 01/27/22 01/27/22 Unknown History tablet (Vitamin C) astaxanthin 4 mg capsule 4 mg PO DAILY 01/27/22 01/27/22 Unknown History cholecalciferol (vitamin D3) 50 50 mcg PO DAILY 01/27/22 01/27/22 Unknown History mcg (2,000 unit) capsule (Vitamin D3) vitamin K2 40 mcg tablet 80 mcg PO DAILY 01/27/22 01/27/22 Unknown History Allergies Allergy/AdvReac Type Severity Reaction Status Date / Time No Known Allergies Allergy Verified 01/27/22 09:31 Current Medications Generic Name Dose Route Start Last Admin Trade Name Odellq PRN Reason Stop Dose Admin Aspirin 81 mg 01/28/22 09:00 02/05/22 09:05 Aspirin 81 Mg Ec Tablet PO 81 mg DAILY KINGA Administration Atorvastatin Calcium 40 mg 01/28/22 09:00 02/05/22 09:05 Atorvastatin 40 Mg Tablet PO 40 mg DAILY KINGA Administration Carvedilol 12.5 mg 02/03/22 20:10 02/05/22 17:55 Carvedilol 12.5 Mg Tablet PO 12.5 mg BID KINGA Administration Clonidine HCl 0.2 mg 02/02/22 18:00 02/05/22 17:55 Clonidine 0.1 Mg Tablet PO 0.2 mg BID KINGA Administration Heparin Sodium (Porcine) 5,000 unit 01/27/22 13:12 02/05/22 13:20 Heparin 5,000 Unit/Ml Inj 1 Ml SUBCUT 5,000 unit Q12H KINGA Administration Hydralazine HCl 50 mg 01/29/22 09:00 02/05/22 20:57 Hydralazine 50 Mg Tablet PO 50 mg TID KINGA Administration Ferric Sodium Gluconate 125 mg 110 mls @ 110 mls/hr 01/30/22 09:00 02/05/22 11:32 / Sodium Chloride IV 02/06/22 09:59 Infused Q24H KINGA Infusion Multivitamins 1 each 01/30/22 09:00 02/05/22 09:05 L-Rdwdrbr-Euqhxmj C Tablet PO 1 each DAILY KINGA Administration Nifedipine 90 mg 02/04/22 09:00 02/05/22 09:05 Nifedipine Er (24 Hr) 30 Mg Tablet PO 90 mg DAILY KINGA Administration Nystatin 1 applic 02/05/22 10:00 02/05/22 17:57 Nystatin Powder 15 Gm Btl TOPICAL 1 applic BID KINGA Administration Senna/Docusate Sodium 1 tab 02/04/22 04:11 02/05/22 17:54 Sennosides-Docusate Tablet PO 1 tab DAILY PRN Administration CONSTIPATION Sevelamer Carbonate 1,600 mg 01/31/22 15:00 02/05/22 20:57 Sevelamer 800 Mg Tablet PO 1,600 mg TID KINGA Administration Sodium Bicarbonate 650 mg 01/31/22 15:00 02/05/22 20:57 Sodium Bicarbonate 650 Mg Tablet PO 650 mg TID KINGA Administration PFSH Acute PFSH: Medical History Hypertension Family History Other Hypertension Social History Smoking and tobacco status: never smoked Alcohol intake: never Vitals/I&O/Wt Last Vital Signs Temp 97.6 F 02/05/22 20:00 Pulse 71 02/05/22 20:00 Resp 20 H 02/05/22 20:00 BP 132/71 02/05/22 20:00 Pulse Ox 97 02/05/22 20:00 O2 Del Method 02/05/22 20:00 02/05/22 02/05/22 02/05/22 06:59 14:59 22:59 Intake Total 700 / 2490 470 / 470 236 / 706 Balance 700 / 2490 470 / 470 236 / 706 Weight last 48 hrs Weight 223 lb Weight 223 lb Physical Exam Narrative: General : Patient is well developed , no acute distress, oriented x3 Head : Normal cephalic, a-traumatic. Ears : Pinnae and external canal are normal. Hearing is normal. Eyes : PERRLA, Sclera and injection are normal. No conjunctival discharge. Nose : Mucous membranes are without erythema. Throat : buccal mucosa is normal, gums are without significant recession or hypertrophy. Lungs : Equal chest rise bilaterally, no use of accessory muscles, trachea is midline. Cor : Rate and rhythm are normal. Abdomen : Soft, ND, NT, no g/r/m Extremities : No edema, no cyanosis or clubbing, dorsalis pedis pulses are present bilaterally, non-tender to palpation of calves. Upper extremities are normal bilaterally. Back : non-tender to palpation, no CVA tenderness. Urinary Catheter Management: Polanco: Cath Placed During This Visit: yes, but has since been removed by the nurse Reason for Continuing Indwelling Catheter: Accurate Measurement of Urinary Output in Critically Ill Patients Urinary Catheter Date of Insertion: 01/28/22 Urinary Catheter Time of Insertion: 15:03 Date Urinary Catheter Removed: 02/01/22 Time Urinary Catheter Discontinued: 20:06 Data : 02/05/22 05:10 02/05/22 05:10 A&P Assessment and plan (1) CKD (chronic kidney disease) stage 5, GFR less than 15 ml/min: Status: Acute Plan Peritoneal Dialysis Catheter placement on Sunday The risks and benefits of the procedure, including but not limited to, bleeding, infection, damage to surrounding structures, conversion to an open procedure, malfunction of the catheter, were explained to the patient. He is understanding of the risks and wishes to proceed. Coding Level of Care Code Acute First Coat Operator for Chg Fwd Diagnoses CKD (chronic kidney disease) stage 5, GFR less than 15 ml/min N18.5
[2022-02-06] VITALS (9 sets, daily range): BP systolic 131–164; BP diastolic 80–92; PULSE 60–158; RESP 17–22; TEMP 36.5–36.8; O2SAT 94–99
[2022-02-06] MEDS: heparin 5,000 unit/mL INJ 1 mL 5000 UNIT SUBCUT ×2 (00:57→14:03)
--- NOTE | 2022-02-06 07:57 | PM.PN ---
Subjective Subjective: c/o itching, also poor memory. no desai, cp, sob, n/v/f/c/desai/d Medications: Reviewed: Yes Medication Review Details: Current Medications Acetaminophen (Acetaminophen 325 Mg Tablet) 650 mg PO Q6H PRN PRN Reason: MILD PAIN Aspirin (Aspirin 81 Mg Ec Tablet) 81 mg PO DAILY [facility] Last Admin: 02/05/22 09:05 Dose: 81 mg Atorvastatin Calcium (Atorvastatin 40 Mg Tablet) 40 mg PO DAILY [facility] Last Admin: 02/05/22 09:05 Dose: 40 mg Carvedilol (Carvedilol 12.5 Mg Tablet) 12.5 mg PO BID [facility] Last Admin: 02/05/22 17:55 Dose: 12.5 mg Clonidine HCl (Clonidine 0.1 Mg Tablet) 0.2 mg PO BID [facility] Last Admin: 02/05/22 17:55 Dose: 0.2 mg Heparin Sodium (Porcine) (Heparin 5,000 Unit/Ml Inj 1 Ml) 5,000 unit SUBCUT Q12H [facility] Last Admin: 02/06/22 00:57 Dose: 5,000 unit Hydralazine HCl (Hydralazine 50 Mg Tablet) 50 mg PO TID [facility] Last Admin: 02/05/22 20:57 Dose: 50 mg Ferric Sodium Gluconate 125 mg (/ Sodium Chloride) 110 mls @ 110 mls/hr IV Q24H [facility] Stop: 02/06/22 09:59 Last Infusion: 02/05/22 11:32 Dose: Infused Magnesium Citrate (Magnesium Citrate Btl 296 Ml) 150 ml PO DAILY PRN PRN Reason: CONSTIPATION Multivitamins (L-Orzcrbe-Ruopsmj C Tablet) 1 each PO DAILY [facility] Last Admin: 02/05/22 09:05 Dose: 1 each Nifedipine (Nifedipine Er (24 Hr) 30 Mg Tablet) 90 mg PO DAILY [facility] Last Admin: 02/05/22 09:05 Dose: 90 mg Nystatin (Nystatin Powder 15 Gm Btl) 1 applic TOPICAL BID [facility] Last Admin: 02/05/22 17:57 Dose: 1 applic Ondansetron HCl (Ondansetron 2 Mg/Ml Sdv 2 Ml) 4 mg IVP Q6H PRN PRN Reason: NAUSEA AND VOMITING Senna/Docusate Sodium (Sennosides-Docusate Tablet) 1 tab PO DAILY PRN PRN Reason: CONSTIPATION Last Admin: 02/05/22 17:54 Dose: 1 tab Sevelamer Carbonate (Sevelamer 800 Mg Tablet) 1,600 mg PO TID [facility] Last Admin: 02/05/22 20:57 Dose: 1,600 mg Sodium Bicarbonate (Sodium Bicarbonate 650 Mg Tablet) 650 mg PO TID [facility] Last Admin: 02/05/22 20:57 Dose: 650 mg Vitals/I&O/Wt Last Vital Signs Temp 97.9 F 02/06/22 07:34 Pulse 65 02/06/22 07:34 Resp 20 H 02/06/22 07:34 BP 150/92 02/06/22 07:34 Pulse Ox 96 02/06/22 07:34 O2 Del Method 02/06/22 07:34 02/05/22 02/06/22 02/06/22 22:59 06:59 14:59 Intake Total 236 / 706 160 / 866 Balance 236 / 706 160 / 866 Weight last 48 hrs Weight 111.538 kg Weight 101.151 kg Physical Exam Narrative: comfortable, sitting, NARD, VS noted- BP improving heent- nc/at, eomi, anicteric neck supple lungs clear b/l heart reg abd soft, nt, nd, + bs ext + edema on rt side neuro- rt weaker then left arm, + no asterixis Urinary Catheter Management: Polanco: Cath Placed During This Visit: yes, but has since been removed by the nurse Reason for Continuing Indwelling Catheter: Accurate Measurement of Urinary Output in Critically Ill Patients Urinary Catheter Date of Insertion: 01/28/22 Urinary Catheter Time of Insertion: 15:03 Date Urinary Catheter Removed: 02/01/22 Time Urinary Catheter Discontinued: 20:06 Data : 02/05/22 05:10 02/05/22 05:10 A&P Assessment and plan (1) KEL (acute kidney injury): 51 yr old man Acute CVA, KEL, accelerated HTN, brain mass. 1. ECHO- EF 65%,Severe concentric left ?ventricular hypertrophy. Grade II diastolic dysfunction, ?moderately elevated filling pressures. [id number] tricuspid valve regurgitation. 2. HTN- BP improving on current regimen 3. KEL - renal us- RT 9cm very echogenic, left 10.3 cm markedly inc echogenicity -pt discussed w/ Dr Ray Garzon- he agrees to PD. will have a tenkoff catheter placed tomorrow. 4. Brain mass/ CVA- will need neuro f/u. 5. anemia- iron sat 22% ferritin 384- iron- monitor hgb, may need EZEQUIEL 6. hyperlipidemia- lipitor 7. norml tsh 8. renal bone mineral metabolism- phos 7-1 binders. check pth= 164 - can start vit d analouge 9.mild met acidosis- improving on na bicarb 10. social issue- ensure he has f/u at [facility] on d/c seen and examined w/ RN- telehealth visit -informed consent for telehealth obtained . Status: Acute Plan as above Attestations Medical Necessity Statement*: ckd stage 5 for access, htn Time Spent in Patient Care: 16 - 35 minutes (>than 50% of time spent in counselling and/or direct pt care on unit). Coding Level of Care Code Acute Instrument Fitter for Wilfrid Osorio Diagnoses KEL (acute kidney injury) N17.9
[2022-02-06] MEDS: cloNIDine 0.1 mg Tablet 0.2 MG PO ×2 (09:43→17:25)
[2022-02-06] MEDS: hyDRALAzine 50 mg Tablet PO ×3 (09:45→20:51)
[2022-02-06] MEDS: b-complex-vitamin c Tablet 1 EACH PO (09:45)
[2022-02-06] MEDS: atorvastatin 40 mg Tablet PO (09:45)
[2022-02-06] MEDS: sevelamer 800 mg Tablet 1600 MG PO ×3 (09:45→20:51)
[2022-02-06] MEDS: carvedilol 12.5 mg Tablet PO ×2 (09:45→17:25)
[2022-02-06] MEDS: NIFEdipine ER (24 hr) 30 mg Tablet 90 MG PO (09:45)
[2022-02-06] MEDS: epoetin alfa 10,000 unit/mL INJ 10000 UNIT SUBCUT (09:45)
[2022-02-06] MEDS: sodium bicarbonate 650 mg Tablet PO ×2 (09:45→17:25)
[2022-02-06] MEDS: aspirin 81 mg EC Tablet PO (09:45)
[2022-02-06] MEDS: ferric gluconate 125 MG in sodium chloride 0.9% (100 ml) 100 ML 110 MG IV (09:46)
--- NOTE | 2022-02-06 10:00 | MR_ITS ---
WS: [id number] MRA HEAD TECHNIQUE: Axial 3-D TOF images obtained with axial images and axial, sagittal, and coronal 2-D refor matted images. CLINICAL INFORMATION: cva possible embolic COMPARISON: MRI February 02, 2022 FINDINGS: Distal vertebral arteries are patent. Basilar artery is patent. Normal vascularity to the ELEVATOR INSTALLER territo ry bilaterally. Both ICAs are patent at the skull base. Patent anterior communicating artery. Normal vascularity to t he JORGE A and MCA territories bilaterally. No evidence of high-grade proximal stenosis or aneurysm. MR/MR angio head wo con [id number] IMPRESSION: 1. Unremarkable intracranial MRa. 2. No evidence of flow-limiting stenosis or aneurysm.
--- NOTE | 2022-02-06 18:26 | PM.PN ---
Subjective Subjective: Patient was seen and examined this morning, no significant complaint, MRA head without contrast: No evidence of flow-limiting stenosis or aneurysm. Patient is due for PD catheter placement tomorrow in the morning. Medications: Reviewed: Yes Medication Review Details: Generic Name Dose Route Start Last Admin Trade Name Jamari PRN Reason Stop Dose Admin Aspirin 81 mg 01/28/22 09:00 02/06/22 09:45 Aspirin 81 Mg Ec Tablet PO 81 mg DAILY KINGA Administration Atorvastatin Calci um 40 mg 01/28/22 09:00 02/06/22 09:45 Atorvastatin 40 Mg Tablet PO 40 mg DAILY KINGA Administration Carvedilol 12.5 mg 02/03/22 20:10 02/06/22 17:25 Carvedilol 12.5 Mg Tablet PO 12.5 mg BID KINGA Administration Clonidine HCl 0.2 mg 02/02/22 18:00 02/06/22 17:25 Clonidine 0.1 Mg Tablet PO 0.2 mg BID KINGA Administration Heparin Sodium (Po rcine) 5,000 unit 01/27/22 13:12 02/06/22 14:03 Heparin 5,000 Un it/Ml Inj 1 Ml SUBCUT 5,000 unit Q12H KINGA Administration Hydralazine HCl 50 mg 01/29/22 09:00 02/06/22 14:03 Hydralazine 50 M g Tablet PO 50 mg TID KINGA Administration Multivitamins 1 each 01/30/22 09:00 02/06/22 09:45 B-Xkweeax-Rsaoos n C Tablet PO 1 each DAILY KINGA Administration Nifedipine 90 mg 02/04/22 09:00 02/06/22 09:45 Nifedipine Er (2 4 Hr) 30 Mg Tablet PO 90 mg DAILY KINGA Administration Nystatin 1 applic 02/05/22 10:00 02/06/22 17:26 Nystatin Powder 15 Gm Btl TOPICAL Not Given BID KINGA Senna/Docusate Sod ium 1 tab 02/04/22 04:11 02/05/22 17:54 Sennosides-Docus ate Tablet PO 1 tab DAILY PRN Administration CONSTIPATION Sevelamer Carbonat e 1,600 mg 01/31/22 15:00 02/06/22 14:03 Sevelamer 800 Mg Tablet PO 1,600 mg TID KINGA Administration Sodium Bicarbonate 650 mg 02/06/22 09:00 09/12/22 17:25 Sodium Bicarbona te 650 Mg Tablet PO 650 mg BID KINGA Administration Vitals/I&O/Wt Last Vital Signs Temp 98.2 F 02/06/22 16:00 Pulse 68 02/06/22 16:00 Resp 17 02/06/22 16:00 BP 153/90 02/06/22 17:25 Pulse Ox 95 02/06/22 16:00 O2 Del Method 02/06/22 16:00 02/06/22 02/06/22 02/06/22 06:59 14:59 22:59 Intake Total 160 / 866 826 / 826 Balance 160 / 866 826 / 826 Weight last 48 hrs Weight 111.538 kg Weight 101.151 kg Physical Exam Const: COMMON NORMALS: patient oriented x3 Resp: COMMON NORMALS: normal respiratory effort, No retractions, No use of accessory muscles and clear to auscultation bilaterally EFFORT & INSPECTION: Yes symmetric chest movement AUSCULTATION: clear to auscultation bilaterally Cardio: COMMON NORMALS: regular rate, regular rhythm, S1 normal heart sound present, S2 normal heart sound present, No gallops present (Cardio), No murmurs present (Cardio), No rub (Cardio) and Peripheral pulses 2+ throughout RATE: regular rate RHYTHM: regular rhythm HEART SOUNDS: S1 normal heart sound present and S2 normal heart sound present PERIPHERAL PULSES: Peripheral pulses 2+ throughout GI: COMMON NORMALS: Normal to inspection, nondistended, normoactive bowel sounds present, Soft to palpation, non-tender, No hepatosplenomegaly present and no masses AUSCULTATION: Yes normoactive bowel sounds PALPATION: Yes Soft to palpation and Yes No hepatosplenomegaly present RECTAL EXAM: Yes deferred Extremity: COMMON NORMALS: no clubbing, cyanosis or edema and no pedal edema Neuro: COMMON NORMALS: patient oriented x3 Urinary Catheter Management: Polanco: Cath Placed During This Visit: yes, but has since been removed by the nurse Reason for Continuing Indwelling Catheter: Accurate Measurement of Urinary Output in Critically Ill Patients Urinary Catheter Date of Insertion: 01/28/22 Urinary Catheter Time of Insertion: 15:03 Date Urinary Catheter Removed: 02/01/22 Time Urinary Catheter Discontinued: 20:06 Data : 02/05/22 05:10 02/05/22 05:10 A&P Assessment and plan (1) CVA (cerebral vascular accident): left-sided CVA due to uncontrolled hypertension no intervene able carotid lesions no A. fib or valvular concern thus far identified however the MRI is concerning for embolic source CT head showed small vessel ischemic disease but called me personally today and voiced concerns regarding embolic findings on the more sensitive MRI Echo was good quality but will be repeated with bubble study. We will also perform MRA no contrast outpatient Holter monitor for 30 days should also be considered Continue ST/OT/PT consultations Aspirin 81 mg daily. Initiated statin and noted that his cholesterol only mildly elevated blood pressure elevated again so will increase clonidine to 0.2 mg twice a day I ordered echo with bubble study, thoracic aorta evaluation, , MRA brain no contrast Status: Acute (2) KEL (acute kidney injury): Appears to be hypertensive nephropathy with proteinuria Note that urinalysis have 3+ protein but no significant hematuria Nephrology consultation noted considering dialysis Renal failure diet please I filled out paperwork for stage V kidney disease today help the patient obtain much-needed Medicare coverage I spoke with patient and also with Dr. Garzon and Dr. Santacruz plan for peritoneal dialysis catheter placement and initiate PD Status: Acute (3) Accelerated hypertension: Placed on nicardipine in the emergency department and stopped Changed to oral medications. labetolol stopped Continue hydralazine, nifedipine, metoprolol and clonidine Increased dose for goal 150/90 or lower Status: Acute (4) Brain mass: This appears to be an incidental finding at this time. There is no evidence of surrounding edema and it is calcified. Location does not seem to explain right hand weakness. Monitor for any seizure activity See MRI results Status: Acute Plan Acute CVA: CT head wo con: Mixed density anterior LEFT parasagittal mass measures 2.9 x 2.5 cm and extends over length of 2.8 cm. Increased density is probably calcification within a meningioma. Favor this is an extra-axial mass. No edema within the adjacent brain or sulcal effacement. Recommend follow-up MRI brain with and without contrast to better evaluate for a dural tail and extra-axial position. Mild small vessel ischemic disease. CV carotid duplex BI* ?Bilateral ICA stenosis less than 50% 2D echo: Normal left ventricular size and systolic function with no ?regional wall motion abnormalities. Left ventricular ejection ?fraction is estimated at 65 %. Severe concentric left ?ventricular hypertrophy. Grade II diastolic dysfunction, ?moderately elevated filling pressures. Chch-gq-wjsqkgsz tricuspid valve regurgitation.? No prior siilar studies to compare. CTA head and neck with contrast could not be done: Due to advanced CKD. Brain mass: Incidental finding on CT, will need further outpatient work-up MRI today brain mass again seen. Not able to give contrast to look for meningioma findings Multiple areas of infarct were suggested Full code Heparin subcutaneous for DVT prophylaxis Attestations Medical Necessity Statement*: In hospital for management of acute CVA. Coding Level of Care Code Acute Commercial Real Estate Attorney for Wilfrid Osorio Diagnoses CVA (cerebral vascular accident) I63.9 KEL (acute kidney injury) N17.9 Accelerated hypertension I10 Brain mass G93.89
--- NOTE | 2022-02-06 19:02 | PC.NURSE ---
I have reviewed and agree with Documentation by Jaswinder smith Student Nurse
[2022-02-07] VITALS (17 sets, daily range): BP systolic 148–203; BP diastolic 77–103; PULSE 66–86; RESP 10–20; TEMP 36.4–37.4; O2SAT 93–100
[2022-02-07] MEDS: heparin 5,000 unit/mL INJ 1 mL 5000 UNIT SUBCUT ×2 (00:49→15:16)
[2022-02-07 05:11] LABS: Basophils # 0.1 10^3/uL (0.0-0.1); Basophils % 0.7 %; Eosinophils # 0.8 10^3/uL (0.0-0.8); Eosinophils % 7.5 %; Hematocrit 29.8 % (42.0-52.0); Hemoglobin 9.8 g/dL (11.7-16.6); Lymphocytes # 1.5 10^3/uL (0.8-4.8); Mean Corpuscular HGB Conc 32.9 g/dL (30.0-36.0); Mean Corpuscular Hemoglobin 29.4 pg (28.0-34.0); Mean Corpuscular Volume 89.5 fl (80-94); Mean Platelet Volume 10.5 fL (7.4-10.4); Neutrophils # 6.62 10^3/uL (1.8-7.7); Neutrophils % 66.4 %; Nucleated Red Blood Cells % 0 %; Platelet Count 221 10^3/cmm (130-400); Red Blood Count 3.33 10^6/uL (4.1-5.3); Red Cell Distribution Width 14.4 % (12.1-15.1)
[2022-02-07 05:35] LABS: Alanine Aminotransferase 24 U/L (0-41); Albumin Level 3.3 g/dL (3.5-5.2); Alkaline Phosphatase 100 U/L (40-130); Anion Gap 21.1 (5-19); Aspartate Amino Transferase 18 U/L (0-40); Carbon Dioxide 20 mmol/L (22-29); Chloride 101 mmol/L (98-107); Glomerular Filtration Rate 7.6 mL/min (90-130); Glucose 80 mg/dL (65-115); Magnesium 2.5 mg/dL (1.7-2.3); Osmolality Calculated 313 mOsm/kg (285-295); Phosphorus 6.8 mg/dL (2.5-4.5); Potassium 4.1 mmol/L (3.5-5.1); Sodium 138 mmol/L (136-145); Total Bilirubin 0.2 mg/dL (0.15-1.2); Total Protein 6.3 g/dL (6.6-8.7)
[2022-02-07 06:05] LABS: Blood Urea Nitrogen 90 mg/dL (6-20)
--- NOTE | 2022-02-07 06:19 | ANES.PREANE2 ---
Pre-Anesthetic Assessment Height/Weight: Height 1.85 m Weight 114.85 kg Temp Pulse Resp BP Pulse Ox O2 Del Method 97.8 F 79 20 H 157/96 97 02/07/22 04:00 02/07/22 04:00 02/07/22 04:00 02/07/22 04:00 02/07/22 04:00 02/06/22 16:00 Preop Diagnosis: KEL w/ CKD Operation Date: 02/07/22 07:00 Proposed Procedures p Laparoscopic Peritoneal Cath Inserti(Not Applicable) - Gerald Santacruz DO Familial anesthetic complications: none Was Beta Debby taken within 24 hours: N/A Was Clonidine taken within 24 hours: N/A Last intake: Intake Last Liquid Date 02/06/22 Last Liquid Time 23:59 Last Solid Date 02/06/22 Last Solid Time 18:00 Social No alcohol and No tobacco Exam alert, oriented x 3, clear to auscultation bilaterally and regular rate & rhythm Airway Submandibular: within normal limits Cervical ROM: Other (Recessed lower teeth) Mallampati: Class I Dentition: full Pulmonary Sleep Apnea and Shortness of Breath (New onset last 3 weeks ) CV/HEM Anemia and None reported TTE 01/27/22 CONCLUSIONS ?1. Normal left ventricular size and systolic function with no ?regional wall motion abnormalities. Left ventricular ejection ?fraction is estimated at 65 %. Severe concentric left ?ventricular hypertrophy. Grade II diastolic dysfunction, ?moderately elevated filling pressures. ?2.? Cqlj-lz-buraifwn tricuspid valve regurgitation.? ?3. No prior siilar studies to compare. Prior to 3 weeks ago patient could ascend flight of stairs w/o CP/SOB, now has SOB Chronic Renal Failure Hepatic None reported GI None reported Metabolic None reported Musc/skel None reported Neuropsych Cerebrovascular Accident (1 week ago per patient, right sided weakness ) 01/27/22 CT/CT head wo con* [id number] IMPRESSION: ? 1.? Mixed density anterior LEFT parasagittal mass measures 2.9 x 2.5 cm and extends over length of 2.8 cm. Increased density is probably calcification within a meningioma. Favor this is an extra-axial mass. No edema within the adjacent brain or sulcal effacement. Recommend follow-up MRI brain with and without contrast to better evaluate for a dural tail and extra-axial position. 2.? Mild small vessel ischemic disease. ? ? ? Anesthetic Plan ASA status: 3 Anesthesia: Anesthesia Evaluation and General Other: We discussed risk and benefits of general anesthesia including PONV, sore throat (sometimes severe), corneal abrasion, positioning and peripheral nerve injuries, life threatening allergic reaction, post operative ICU admission requiring prolonged intubation, aspiration, stroke, heart attack, , and rare incidences of recall. Patient consents to proceed with general anesthesia. Risk of > 500 ml blood loss (7ml/kg in children): No Medications/Allergies Home Medications Medication Instructions Recorded Confirmed Last Taken Type ascorbic acid (vitamin C) 1,000 mg 500 mg PO BID 01/27/22 01/27/22 Unknown History tablet (Vitamin C) astaxanthin 4 mg capsule 4 mg PO DAILY 01/27/22 01/27/22 Unknown History cholecalciferol (vitamin D3) 50 50 mcg PO DAILY 01/27/22 01/27/22 Unknown History mcg (2,000 unit) capsule (Vitamin D3) vitamin K2 40 mcg tablet 80 mcg PO DAILY 01/27/22 01/27/22 Unknown History Allergies Allergy/AdvReac Type Severity Reaction Status Date / Time No Known Allergies Allergy Verified 01/27/22 09:31 Current Medications Generic Name Dose Route Start Last Admin Trade Name Freq PRN Reason Stop Dose Admin Aspirin 81 mg 01/28/22 09:00 02/06/22 09:45 Aspirin 81 Mg Ec Tablet PO 81 mg DAILY KINGA Administration Atorvastatin Calcium 40 mg 01/28/22 09:00 02/06/22 09:45 Atorvastatin 40 Mg Tablet PO 40 mg DAILY KINGA Administration Carvedilol 12.5 mg 02/03/22 20:10 02/06/22 17:25 Carvedilol 12.5 Mg Tablet PO 12.5 mg BID KINGA Administration Clonidine HCl 0.2 mg 02/02/22 18:00 02/06/22 17:25 Clonidine 0.1 Mg Tablet PO 0.2 mg BID KINGA Administration Heparin Sodium (Porcine) 5,000 unit 01/27/22 13:12 02/07/22 00:49 Heparin 5,000 Unit/Ml Inj 1 Ml SUBCUT 5,000 unit Q12H KINGA Administration Hydralazine HCl 50 mg 01/29/22 09:00 02/06/22 20:51 Hydralazine 50 Mg Tablet PO 50 mg TID KINGA Administration Multivitamins 1 each 01/30/22 09:00 02/06/22 09:45 A-Ksnrmkl-Mlwpqur C Tablet PO 1 each DAILY KINGA Administration Nifedipine 90 mg 02/04/22 09:00 02/06/22 09:45 Nifedipine Er (24 Hr) 30 Mg Tablet PO 90 mg DAILY KINGA Administration Nystatin 1 applic 02/05/22 10:00 02/06/22 17:26 Nystatin Powder 15 Gm Btl TOPICAL Not Given BID KINGA Senna/Docusate Sodium 1 tab 02/04/22 04:11 02/05/22 17:54 Sennosides-Docusate Tablet PO 1 tab DAILY PRN Administration CONSTIPATION Sevelamer Carbonate 1,600 mg 01/31/22 15:00 02/06/22 20:51 Sevelamer 800 Mg Tablet PO 1,600 mg TID KINGA Administration Sodium Bicarbonate 650 mg 02/06/22 09:00 02/06/22 17:25 Sodium Bicarbonate 650 Mg Tablet PO 650 mg BID KINGA Administration Additional Medication Information Generic Name Dose Route Start Last Admin Trade Name Jamari PRN Reason Stop Dose Admin Aspirin 81 mg 01/28/22 09:00 02/06/22 09:45 Aspirin 81 Mg Ec Tablet PO 81 mg DAILY KINGA Administration Atorvastatin Calcium 40 mg 01/28/22 09:00 02/06/22 09:45 Atorvastatin 40 Mg Tablet PO 40 mg DAILY KINGA Administration Carvedilol 12.5 mg 02/03/22 20:10 02/06/22 17:25 Carvedilol 12.5 Mg Tablet PO 12.5 mg BID KINGA Administration Clonidine HCl 0.2 mg 02/02/22 18:00 02/06/22 17:25 Clonidine 0.1 Mg Tablet PO 0.2 mg BID KINGA Administration Heparin Sodium (Porcine) 5,000 unit 01/27/22 13:12 02/06/22 14:03 Heparin 5,000 Unit/Ml Inj 1 Ml SUBCUT 5,000 unit Q12H KINGA Administration Hydralazine HCl 50 mg 01/29/22 09:00 02/06/22 14:03 Hydralazine 50 Mg Tablet PO 50 mg TID KINGA Administration Multivitamins 1 each 01/30/22 09:00 02/06/22 09:45 I-Ehiligm-Fcopxhm C Tablet PO 1 each DAILY KINGA Administration Nifedipine 90 mg 02/04/22 09:00 02/06/22 09:45 Nifedipine Er (24 Hr) 30 Mg Tablet PO 90 mg DAILY KINGA Administration Nystatin 1 applic 02/05/22 10:00 02/06/22 17:26 Nystatin Powder 15 Gm Btl TOPICAL Not Given BID KINGA Senna/Docusate Sodium 1 tab 02/04/22 04:11 02/05/22 17:54 Sennosides-Docusate Tablet PO 1 tab DAILY PRN Administration CONSTIPATION Sevelamer Carbonate 1,600 mg 01/31/22 15:00 02/06/22 14:03 Sevelamer 800 Mg Tablet PO 1,600 mg TID KINGA Administration Sodium Bicarbonate 650 mg 02/06/22 09:00 02/06/22 17:25 Sodium Bicarbonate 650 Mg Tablet PO 650 mg BID KINGA Administration [facility] Anesthesia Medical History Hypertension Family History Other Hypertension Social History Smoking and tobacco status: never smoked Alcohol intake: never Supplemental [facility] Information Denies any prior history of surgery Data Anesthesia : 02/07/22 04:20 02/07/22 04:20 Short CBC 02/07/22 Range/Units 04:20 WBC 10.0 (4.0-10.0) 10^3/uL Hgb 9.8 L (11.7-16.6) g/dL Hct 29.8 L (42.0-52.0) % MCV 89.5 (80-94) fl Plt Count 221 (130-400) 10^3/cmm Neut % (Auto) 66.4 % Neut # (Auto) 6.62 (1.8-7.7) 10^3/uL BMP 02/07/22 04:20 Sodium 138 Potassium 4.1 Chloride 101 Carbon Dioxide 20 L BUN 90 H* Creatinine 7.5 H* Glucose 80 Calcium 9.0 Liver Function 02/07/22 Range/Units 04:20 Total Bilirubin 0.2 (0.15-1.2) mg/dL AST 18 (0-40) U/L ALT 24 (0-41) U/L Alkaline Phosphatase 100 (40-130) U/L Albumin 3.3 L (3.5-5.2) g/dL Cardiac Studies: Echocardiogram 02/05/22
--- NOTE | 2022-02-07 06:25 | PC.NURSE ---
Patient taken by wheelchair to surgery. OR, RN at side.
[2022-02-07] MEDS: sodium chloride 0.9% 1,000 ML 30 ML IV (06:40)
[2022-02-07] MEDS: labetalol 5 mg/mL SDV 20mL 10 MG IVP (06:44)
--- NOTE | 2022-02-07 07:00 | W.PM.OPSUD ---
Surgery/Procedure H&P Update DATE OF PROCEDURE: February 07, 2022 DATE H&P PERFORMED: 02/05/22 CHANGES TO PREVIOUS DOCUMENTATION: Need for PD dialysis PLANNED PROCEDURE: Operation Date: 02/07/22 07:00 Proposed Procedures p Laparoscopic Peritoneal Cath Inserti(Not Applicable) - Gerald Santacruz DO
[2022-02-07] MEDS: ceFAZolin 2,000 MG in sodium chloride 0.9% (plus) 50 ML 100 MG IV (07:09)
--- NOTE | 2022-02-07 07:25 | PM.PN ---
Subjective Subjective: no changes. for PD catheter. no new sob or cp, n/v Medications: Reviewed: Yes Medication Review Details: Current Medications Acetaminophen (Acetaminophen 325 Mg Tablet) 650 mg PO Q6H PRN PRN Reason: MILD PAIN Albuterol Sulfate (Albuterol 2.5 Mg/0.5 Ml Neb) 2.5 mg INHALATION ONCE PRN PRN Reason: WHEEZING Aspirin (Aspirin 81 Mg Ec Tablet) 81 mg PO DAILY [facility] Last Admin: 02/06/22 09:45 Dose: 81 mg Atorvastatin Calcium (Atorvastatin 40 Mg Tablet) 40 mg PO DAILY [facility] Last Admin: 02/06/22 09:45 Dose: 40 mg Carvedilol (Carvedilol 12.5 Mg Tablet) 12.5 mg PO BID [facility] Last Admin: 02/06/22 17:25 Dose: 12.5 mg Clonidine HCl (Clonidine 0.1 Mg Tablet) 0.2 mg PO BID [facility] Last Admin: 02/06/22 17:25 Dose: 0.2 mg Diphenhydramine HCl (Diphenhydramine 50 Mg/Ml Sdv 1ml) 12.5 mg IVP ONCE PRN PRN Reason: ANESTHESIA Famotidine (Famotidine 20 Mg/2 Ml Inj) 20 mg IVP ONCE PRN PRN Reason: HEARTBURN Fentanyl (Fentanyl 50 Mcg/Ml Inj 2ml) 50 mcg IVP Q10M PRN PRN Reason: Preop Pain Fentanyl (Fentanyl 50 Mcg/Ml Inj 2ml) 100 mcg IVP ONCE PRN PRN Reason: Per anesthesia for block Heparin Sodium (Porcine) (Heparin 5,000 Unit/Ml Inj 1 Ml) 5,000 unit SUBCUT Q12H [facility] Last Admin: 02/07/22 00:49 Dose: 5,000 unit Hydralazine HCl (Hydralazine 50 Mg Tablet) 50 mg PO TID [facility] Last Admin: 02/06/22 20:51 Dose: 50 mg Sodium Chloride (Sodium Chloride 0.9%) 1,000 mls @ 30 mls/hr IV .Q24H [facility] Stop: 02/08/22 06:29 Last Admin: 02/07/22 06:40 Dose: 30 mls/hr Cefazolin Sodium 2,000 mg/ (Sodium Chloride) 50 mls @ 100 mls/hr IV [employer] ONE; Protocol Stop: 02/07/22 07:32 Ipratropium [place] (Ipratropium 0.5 Mg/2.5 Ml Neb) 0.5 mg INHALATION ONCE PRN PRN Reason: WHEEZING Midazolam HCl (Midazolam 1 Mg/Ml Inj 5 Ml) 5 mg IVP ONCE PRN PRN Reason: Per anesthesia for block Midazolam HCl (Midazolam 1 Mg/Ml Inj 2 Ml) 2 mg IVP Q5M PRN PRN Reason: Preop Anxiety Multivitamins (A-Gthvkzb-Qwfoltr C Tablet) 1 each PO DAILY [facility] Last Admin: 02/06/22 09:45 Dose: 1 each Nifedipine (Nifedipine Er (24 Hr) 30 Mg Tablet) 90 mg PO DAILY [facility] Last Admin: 02/06/22 09:45 Dose: 90 mg Nystatin (Nystatin Powder 15 Gm Btl) 1 applic TOPICAL BID [facility] Last Admin: 02/06/22 17:26 Dose: Not Given Ondansetron HCl (Ondansetron 2 Mg/Ml Sdv 2 Ml) 4 mg IVP Q6H PRN PRN Reason: NAUSEA AND VOMITING Ondansetron HCl (Ondansetron 2 Mg/Ml Sdv 2 Ml) 4 mg IVP Q5M PRN PRN Reason: NAUSEA AND VOMITING Scopolamine (Scopolamine 1.5 Patch) 1 patch TRANSDERMA ONCE PRN PRN Reason: Nausea/ Vomiting Prophylaxis Senna/Docusate Sodium (Sennosides-Docusate Tablet) 1 tab PO DAILY PRN PRN Reason: CONSTIPATION Last Admin: 02/05/22 17:54 Dose: 1 tab Sevelamer Carbonate (Sevelamer 800 Mg Tablet) 1,600 mg PO TID [facility] Last Admin: 02/06/22 20:51 Dose: 1,600 mg Sodium Bicarbonate (Sodium Bicarbonate 650 Mg Tablet) 650 mg PO BID [facility] Last Admin: 02/06/22 17:25 Dose: 650 mg Vitals/I&O/Wt Last Vital Signs Temp 99.3 F 02/07/22 06:41 Pulse 86 02/07/22 06:41 Resp 18 02/07/22 06:41 BP 203/103 02/07/22 06:41 Pulse Ox 97 02/07/22 06:41 O2 Del Method 02/07/22 06:41 02/06/22 02/07/22 02/07/22 22:59 06:59 14:59 Intake Total 240 / 1066 Balance 240 / 1066 Weight last 48 hrs Weight 114.85 kg Weight 111.538 kg Physical Exam Narrative: comfortable, sitting, NARD, VS noted- BP elevated heent- nc/at, eomi, anicteric neck supple lungs clear b/l heart reg abd soft, nt, nd, + bs ext + edema on rt side neuro- rt weaker then left arm, + no asterixis Urinary Catheter Management: Polanco: Cath Placed During This Visit: yes, but has since been removed by the nurse Reason for Continuing Indwelling Catheter: Accurate Measurement of Urinary Output in Critically Ill Patients Urinary Catheter Date of Insertion: 01/28/22 Urinary Catheter Time of Insertion: 15:03 Date Urinary Catheter Removed: 02/01/22 Time Urinary Catheter Discontinued: 20:06 Data : 02/07/22 04:20 02/07/22 04:20 A&P Assessment and plan (1) KEL (acute kidney injury): 51 yr old man Acute CVA, KEL, accelerated HTN, brain mass. 1. ECHO- EF 65%,Severe concentric left ?ventricular hypertrophy. Grade II diastolic dysfunction, ?moderately elevated filling pressures. Xlzd-jj-xabmwult tricuspid valve regurgitation. 2. HTN- on multiple meds. will start PD soon- for catheter today 3. KEL - renal us- RT 9cm very echogenic, left 10.3 cm markedly inc echogenicity -pt discussed w/ Dr Ray Garzon- he agrees to PD. will have a tenkoff catheter placed today. 4. Brain mass/ CVA- MRA negative MRI- ? Acute diffusion-weighted infarcts involving the LEFT lateral and dorsal medulla. Additional small multifocal lacunar infarcts throughout the RIGHT brain involving the occipital lobe, frontal and parietal lobes. Due to the different arterial distributions consider embolic source. Posterior and anterior circulation infarcts. If echocardiogram has not been performed this should be obtained to evaluate for embolic source. Follow-up carotid ultrasound, CTA or MRA recommended of the carotid arteries and [place]. 2.? Possible but indeterminate LEFT hamm radiata and medial LEFT temporal lobe tiny acute infarcts. 3.? Lobulated mass with foci of calcification along the anterior LEFT interhemispheric falx measures 2.5 x 2.6 x 2.7 cm. Mass extends across the falx into the RIGHT cerebrum. Favor this is probably a meningioma. Follow-up evaluation with IV contrast is recommended when the patient's renal function permits. will need neuro f/u.- AVOID GADOLINIUM- RISK OF nsf 5. anemia- iron sat 22% ferritin 384- iron- monitor hgb, may need EZEQUIEL 6. hyperlipidemia- lipitor 7. norml tsh 8. renal bone mineral metabolism- phos IMPRVING TO 6.8 ON binders. check pth= 164 - can start vit d analouge 9.mild met acidosis- on na bicarb 10. social issue-APPRECIATE Dr. Proctor's efforts to ensure he has f/u at [facility] on d/c seen and examined w/ RN- telehealth visit -informed consent for telehealth obtained . Status: Acute Plan as above Attestations Medical Necessity Statement*: htn, CKD stage 5 Time Spent in Patient Care: 16 - 35 minutes (>than 50% of time spent in counselling and/or direct pt care on unit). Coding Level of Care Code Acute Fixed Route Bus Operator for Jaymeg Jo Diagnoses KEL (acute kidney injury) N17.9
--- NOTE | 2022-02-07 08:23 | PC.OT ---
OT tx attempted. Pt off the floor to surgery for dialysis port placement. Will attempt tx later if possible.
--- NOTE | 2022-02-07 09:26 | P.OP_ITS ---
Operative Report Date of procedure: February 13, 2022 Pre-op diagnosis: Preop Diagnosis KEL w/ CKD Post-op diagnosis: same Procedure done: Laparoscopic peritoneal dialysis catheter insertion Implants: Peritoneal dialysis catheter Surgeon: Dr. Gerald Santacruz DO Anesthesia: General Estimated blood loss (mL): 2 Complications: None apparent Brief History: This is a very pleasant 51-year-old gentleman who was found to have chronic kidney disease and is in need of dialysis. Peritoneal dialysis catheter insertion was indicated. The risks and benefits have been explained and documented Procedure: The patient was well in the operative room and placed on the OR table in supine position. General anesthesia was achieved by the department of anesthesia. A timeout was performed all present were in agreement. The abdomen was inspected prepped and draped in the usual sterile fashion. A 5 mm incision was made in the left upper quadrant. A Veress needle was inserted and insufflation was achieved to 15 mmHg. A 5 mm trocar was then placed under Optiview. Next, a 5 mm incision was made in the left lower quadrant and a 150 mm trocar was tunneled through the skin, subcutaneous tissue, muscles and peritoneum. A peritoneal dialysis catheter was then fed through the trocar by hand. A 3 mm incision was then made in the left hemiabdomen and a [place] grasper was used to further advance the catheter. The first catheter broke and was removed. A new catheter was pushed and then pulled through the trocar in a similar fashion. The catheter was sewn in place with 3-0 nylon. The catheter was in good position in the pelvis and both cuffs were in the proper location. Insufflation trochars were removed. Skin was closed with 4-0 nylon in a subcuticular fashion. Skin g lue was applied. Sterile dressing was applied over the catheter. Patient tolerated the procedure well.
[2022-02-07] MEDS: cloNIDine 0.1 mg Tablet 0.2 MG PO ×2 (10:49→17:50)
[2022-02-07] MEDS: sevelamer 800 mg Tablet 1600 MG PO ×3 (10:49→20:56)
[2022-02-07] MEDS: carvedilol 12.5 mg Tablet PO ×2 (10:50→17:51)
[2022-02-07] MEDS: sodium bicarbonate 650 mg Tablet PO ×2 (10:50→17:50)
[2022-02-07] MEDS: NIFEdipine ER (24 hr) 30 mg Tablet 90 MG PO (10:51)
[2022-02-07] MEDS: atorvastatin 40 mg Tablet PO (10:51)
[2022-02-07] MEDS: hyDRALAzine 50 mg Tablet PO ×3 (10:51→20:56)
[2022-02-07] MEDS: nystatin powder 15 gm Btl 1 APPLIC TOPICAL ×2 (10:51→17:51)
[2022-02-07] MEDS: b-complex-vitamin c Tablet 1 EACH PO (10:51)
[2022-02-07] MEDS: aspirin 81 mg EC Tablet PO (10:51)
--- NOTE | 2022-02-07 11:02 | PC.CHAP ---
Pastoral Care Encounter/Spiritual Assessment Type of Contact [] Declined [place] visit [] Patient/Family/Request visit [] Outpatient visit [] Follow-up visit [] Physician referral [] Code/Alert [x] Routine visit [] Staff referral [] Actively dying [] Patient sleeping [] Family support [] [] Out of room [] Palliative care [] [] Receiving care in room [] Pre-surgical visit [] Trauma [] Long length of stay [] ICU visit [] Other: Relational/Emotional Strength [] Patient feels connected with others/family/visitors/staff [] Distress [] Loneliness/isolation [] Abandonment Spirituality of Patient x [] Person of Belinda [x] Attends Yazdanism of their Belinda [x] Believes in Prayer [] Reads Bible or Christian materials [] There are Spiritual issues to 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 Interventions [x] Prayer [x] Active listening [x] Non-anxious presence x] Spiritual/emotional support [] Crisis/trauma care [] Spiritual counseling [] Bereavement support [] Provided bereavement packet [] Provided Bible/devotional materials [] Provided toy/stuffed animal, coloring book to patient or family member [] Provided Communion [] Anointing/[place] [] Salvation [x] Completed spiritual assessment [] Other: Impact on Illness or Injury [] Angry [] Fearful [] Anxious [] Often cries [] Exhaustion [] Unable to work [] Unable to attend buddhism [] Unable to walk/stand [] Unable to read [] Unable to drive [] Unable to eat/drink [] Unable to sleep [] Unable to be with family [] Patient intubated [] Other: Summary Time spent with patient 15 min
--- NOTE | 2022-02-07 15:38 | ANE.PACU2 ---
Inpatient post-anesthesia follow up: Airway intact: Yes Vital signs: Temperature 97.9 F Pulse Rate 73 Respiratory Rate 20 Blood Pressure 150/77 Pulse Oximetry 95 Oxygen Delivery Me thod Room Air Oxygen Flow Rate 10 Fraction of Inspir ed Oxygen Hydration adequate: Yes Nausea and vomiting: No Pain level: 1 Mental status: Baseline
--- NOTE | 2022-02-07 15:40 | PM.PN ---
Subjective Subjective: Patient was seen and examined this morning, S/P PD catheter placement, tolerated the procedure well. Medications: Reviewed: Yes Medication Review Details: Generic Name Dose Route Start Last Admin Trade Name Jamari PRN Reason Stop Dose Admin Aspirin 81 mg 01/28/22 09:00 02/07/22 10:51 Aspirin 81 Mg Ec Tablet PO 81 mg DAILY KINGA Administration Atorvastatin Calci um 40 mg 01/28/22 09:00 02/07/22 10:51 Atorvastatin 40 Mg Tablet PO 40 mg DAILY KINGA Administration Carvedilol 12.5 mg 02/03/22 20:10 02/07/22 10:50 Carvedilol 12.5 Mg Tablet PO 12.5 mg BID KINGA Administration Clonidine HCl 0.2 mg 02/02/22 18:00 02/07/22 10:49 Clonidine 0.1 Mg Tablet PO 0.2 mg BID KINGA Administration Heparin Sodium (Po rcine) 5,000 unit 01/27/22 13:12 02/07/22 15:16 Heparin 5,000 Un it/Ml Inj 1 Ml SUBCUT 5,000 unit Q12H KINGA Administration Hydralazine HCl 50 mg 01/29/22 09:00 02/07/22 15:16 Hydralazine 50 M g Tablet PO 50 mg TID KINGA Administration Sodium Chloride 1,000 mls @ 30 ml s/hr 02/07/22 06:30 02/07/22 06:40 Sodium Chloride 0.9% IV 02/08/22 06:29 30 mls/hr .Q24H KINGA Administration Multivitamins 1 each 01/30/22 09:00 02/07/22 10:51 J-Beqcuco-Uckkzv n C Tablet PO 1 each DAILY KINGA Administration Nifedipine 90 mg 02/04/22 09:00 02/07/22 10:51 Nifedipine Er (2 4 Hr) 30 Mg Tablet PO 90 mg DAILY KINGA Administration Nystatin 1 applic 02/05/22 10:00 02/07/22 10:51 Nystatin Powder 15 Gm Btl TOPICAL 1 applic BID KINGA Administration Senna/Docusate Sod ium 1 tab 02/04/22 04:11 02/05/22 17:54 Sennosides-Docus ate Tablet PO 1 tab DAILY PRN Administration CONSTIPATION Sevelamer Carbonat e 1,600 mg 01/31/22 15:00 02/07/22 15:16 Sevelamer 800 Mg Tablet PO 1,600 mg TID KINGA Administration Sodium Bicarbonate 650 mg 02/06/22 09:00 02/07/22 10:50 Sodium Bicarbona te 650 Mg Tablet PO 650 mg BID KINGA Administration Vitals/I&O/Wt Last Vital Signs Temp 97.9 F 02/07/22 11:29 Pulse 73 02/07/22 11:29 Resp 20 H 02/07/22 11:29 BP 150/77 02/07/22 11:29 Pulse Ox 95 02/07/22 11:29 O2 Del Method 02/07/22 11:29 O2 Flow Rate 10 02/07/22 08:05 02/07/22 02/07/22 02/07/22 06:59 14:59 22:59 Intake Total 730 / 730 Output Total Balance 727 / 727 Weight last 48 hrs Weight 114.85 kg Weight 111.538 kg Physical Exam Const: COMMON NORMALS: patient oriented x3 Resp: COMMON NORMALS: normal respiratory effort, No retractions, No use of accessory muscles and clear to auscultation bilaterally EFFORT & INSPECTION: Yes symmetric chest movement AUSCULTATION: clear to auscultation bilaterally Cardio: COMMON NORMALS: regular rate, regular rhythm, S1 normal heart sound present, S2 normal heart sound present, No gallops present (Cardio), No murmurs present (Cardio), No rub (Cardio) and Peripheral pulses 2+ throughout RATE: regular rate RHYTHM: regular rhythm HEART SOUNDS: S1 normal heart sound present and S2 normal heart sound present PERIPHERAL PULSES: Peripheral pulses 2+ throughout GI: COMMON NORMALS: Normal to inspection, nondistended, normoactive bowel sounds present, Soft to palpation, non-tender, No hepatosplenomegaly present and no masses AUSCULTATION: Yes normoactive bowel sounds PALPATION: Yes Soft to palpation and Yes No hepatosplenomegaly present RECTAL EXAM: Yes deferred Extremity: COMMON NORMALS: no clubbing, cyanosis or edema and no pedal edema Neuro: COMMON NORMALS: patient oriented x3 Urinary Catheter Management: Polanco: Cath Placed During This Visit: yes, but has since been removed by the nurse Reason for Continuing Indwelling Catheter: Accurate Measurement of Urinary Output in Critically Ill Patients Urinary Catheter Date of Insertion: 01/28/22 Urinary Catheter Time of Insertion: 15:03 Date Urinary Catheter Removed: 02/01/22 Time Urinary Catheter Discontinued: 20:06 Data : 02/07/22 04:20 02/07/22 04:20 A&P Assessment and plan (1) CVA (cerebral vascular accident): left-sided CVA due to uncontrolled hypertension no intervene able carotid lesions no A. fib or valvular concern thus far identified however the MRI is concerning for embolic source CT head showed small vessel ischemic disease but called me personally today and voiced concerns regarding embolic findings on the more sensitive MRI Echo was good quality but will be repeated with bubble study. We will also perform MRA no contrast outpatient Holter monitor for 30 days should also be considered Continue ST/OT/PT consultations Aspirin 81 mg daily. Initiated statin and noted that his cholesterol only mildly elevated blood pressure elevated again so will increase clonidine to 0.2 mg twice a day I ordered echo with bubble study, thoracic aorta evaluation, , MRA brain no contrast Status: Acute (2) KEL (acute kidney injury): Appears to be hypertensive nephropathy with proteinuria Note that urinalysis have 3+ protein but no significant hematuria Nephrology consultation noted considering dialysis Renal failure diet please I filled out paperwork for stage V kidney disease today help the patient obtain much-needed Medicare coverage I spoke with patient and also with Dr. Garzon and Dr. Santacruz plan for peritoneal dialysis catheter placement and initiate PD Status: Acute (3) Accelerated hypertension: Placed on nicardipine in the emergency department and stopped Changed to oral medications. labetolol stopped Continue hydralazine, nifedipine, metoprolol and clonidine Increased dose for goal 150/90 or lower Status: Acute (4) Brain mass: This appears to be an incidental finding at this time. There is no evidence of surrounding edema and it is calcified. Location does not seem to explain right hand weakness. Monitor for any seizure activity See MRI results Status: Acute Plan Acute CVA: CT head wo con: Mixed density anterior LEFT parasagittal mass measures 2.9 x 2.5 cm and extends over length of 2.8 cm. Increased density is probably calcification within a meningioma. Favor this is an extra-axial mass. No edema within the adjacent brain or sulcal effacement. Recommend follow-up MRI brain with and without contrast to better evaluate for a dural tail and extra-axial position. Mild small vessel ischemic disease. CV carotid duplex BI* ?Bilateral ICA stenosis less than 50% 2D echo: Normal left ventricular size and systolic function with no ?regional wall motion abnormalities. Left ventricular ejection ?fraction is estimated at 65 %. Severe concentric left ?ventricular hypertrophy. Grade II diastolic dysfunction, ?moderately elevated filling pressures. Wvut-ax-tcmuxylg tricuspid valve regurgitation.? No prior siilar studies to compare. CTA head and neck with contrast could not be done: Due to advanced CKD. Brain mass: Incidental finding on CT, will need further outpatient work-up MRI today brain mass again seen. Not able to give contrast to look for meningioma findings Multiple areas of infarct were suggested Full code Heparin subcutaneous for DVT prophylaxis Attestations Medical Necessity Statement*: in hospital for P/D Catheter placement Coding Level of Care Code Acute Crewman Armoured Personnel Carrier M113 for Chg Fwd Diagnoses CVA (cerebral vascular accident) I63.9 KEL (acute kidney injury) N17.9 Accelerated hypertension I10 Brain mass G93.89
[2022-02-08] VITALS (11 sets, daily range): BP systolic 124–168; BP diastolic 63–97; PULSE 65–71; RESP 16–22; TEMP 36.5–36.9; O2SAT 92–97
[2022-02-08] MEDS: heparin 5,000 unit/mL INJ 1 mL 5000 UNIT SUBCUT ×2 (00:57→14:59)
[2022-02-08 04:31] LABS: Basophils # 0.1 10^3/uL (0.0-0.1); Basophils % 0.4 %; Eosinophils # 0.2 10^3/uL (0.0-0.8); Hemoglobin 9.7 g/dL (11.7-16.6); Lymphocytes # 1.2 10^3/uL (0.8-4.8); Lymphocytes % 10.7 %; Mean Corpuscular HGB Conc 30.3 g/dL (30.0-36.0); Mean Corpuscular Hemoglobin 29.2 pg (28.0-34.0); Mean Corpuscular Volume 96.4 fl (80-94); Mean Platelet Volume 10.2 fL (7.4-10.4); Monocytes # 1.4 10^3/uL (0.2-0.9); Monocytes % 11.9 %; Neutrophils # 8.53 10^3/uL (1.8-7.7); Neutrophils % 74.6 %; Nucleated Red Blood Cells % 0 %; Platelet Count 208 10^3/cmm (130-400); Red Blood Count 3.32 10^6/uL (4.1-5.3); Red Cell Distribution Width 14.4 % (12.1-15.1); White Blood Count 11.5 10^3/uL (4.0-10.0)
[2022-02-08 04:47] LABS: Albumin Level 2.8 g/dL (3.5-5.2); Alkaline Phosphatase 96 U/L (40-130); Calcium 8.9 mg/dL (8.5-10.5); Carbon Dioxide 18 mmol/L (22-29); Chloride 101 mmol/L (98-107); Globulin 3.2 g/dL (1.3-4.6); Glomerular Filtration Rate 7.3 mL/min (90-130); Glucose 103 mg/dL (65-115); Magnesium 2.6 mg/dL (1.7-2.3); Osmolality Calculated 307 mOsm/kg (285-295); Phosphorus 6.3 mg/dL (2.5-4.5); Sodium 135 mmol/L (136-145); Total Bilirubin 0.2 mg/dL (0.15-1.2)
[2022-02-08 04:54] LABS: Anion Gap 20.4 (5-19); Potassium 4.4 mmol/L (3.5-5.1)
[2022-02-08 05:24] LABS: Blood Urea Nitrogen 88 mg/dL (6-20)
[2022-02-08 05:25] LABS: Alanine Aminotransferase 16 U/L (0-41); Aspartate Amino Transferase 22 U/L (0-40)
--- NOTE | 2022-02-08 09:25 | P.PN_ITS ---
Subjective Subjective: weak, nausea, abd leaking. no cp, desai, d.some SOB Medications: Reviewed: Yes Medication Review Details: Current Medications Acetaminophen (Acetaminophen 325 Mg Tablet) 650 mg PO Q6H PRN PRN Reason: MILD PAIN Hydrocodone Bitart/Acetaminophen (Hydrocodone-Acetaminophen 7.5-325 Mg Tablet) 1 tab PO Q4H PRN PRN Reason: MODERATE PAIN Aspirin (Aspirin 81 Mg Ec Tablet) 81 mg PO DAILY [facility] Last Admin: 02/07/22 10:51 Dose: 81 mg Atorvastatin Calcium (Atorvastatin 40 Mg Tablet) 40 mg PO DAILY [facility] Last Admin: 02/07/22 10:51 Dose: 40 mg Carvedilol (Carvedilol 12.5 Mg Tablet) 12.5 mg PO BID [facility] Last Admin: 02/07/22 17:51 Dose: 12.5 mg Clonidine HCl (Clonidine 0.1 Mg Tablet) 0.2 mg PO BID [facility] Last Admin: 02/07/22 17:50 Dose: 0.2 mg Heparin Sodium (Porcine) (Heparin 5,000 Unit/Ml Inj 1 Ml) 5,000 unit SUBCUT Q12H [facility] Last Admin: 02/08/22 00:57 Dose: 5,000 unit Hydralazine HCl (Hydralazine 50 Mg Tablet) 50 mg PO TID [facility] Last Admin: 02/07/22 20:56 Dose: 50 mg Hydromorphone HCl (Hydromorphone 1 Mg/Ml Inj 1 Ml) 0.5 mg IVP Q4H PRN PRN Reason: severe PAIN Multivitamins (W-Oohuqth-Tpeupbx C Tablet) 1 each PO DAILY [facility] Last Admin: 02/07/22 10:51 Dose: 1 each Nifedipine (Nifedipine Er (24 Hr) 30 Mg Tablet) 90 mg PO DAILY [facility] Last Admin: 02/07/22 10:51 Dose: 90 mg Nystatin (Nystatin Powder 15 Gm Btl) 1 applic TOPICAL BID [facility] Last Admin: 02/07/22 17:51 Dose: 1 applic Ondansetron HCl (Ondansetron 2 Mg/Ml Sdv 2 Ml) 4 mg IVP Q6H PRN PRN Reason: NAUSEA AND VOMITING Senna/Docusate Sodium (Sennosides-Docusate Tablet) 1 tab PO DAILY PRN PRN Reason: CONSTIPATION Last Admin: 02/05/22 17:54 Dose: 1 tab Sevelamer Carbonate (Sevelamer 800 Mg Tablet) 1,600 mg PO TID [facility] Last Admin: 02/07/22 20:56 Dose: 1,600 mg Sodium Bicarbonate (Sodium Bicarbonate 650 Mg Tablet) 650 mg PO BID [facility] Last Admin: 02/07/22 17:50 Dose: 650 mg Vitals/I&O/Wt Last Vital Signs Temp 97.8 F 02/08/22 07:07 Pulse 68 02/08/22 07:07 Resp 20 H 02/08/22 07:07 BP 168/97 02/08/22 07:07 Pulse Ox 97 02/08/22 07:07 O2 Del Method 02/08/22 07:07 O2 Flow Rate 10 02/07/22 08:05 02/07/22 02/08/22 02/08/22 22:59 06:59 14:59 Intake Total 60 / 790 240 / 1030 Balance 60 / 787 240 / 1027 Weight last 48 hrs Weight 102.965 kg Weight 114.85 kg Physical Exam Narrative: comfortable, sitting, NARD, VS noted- BP remians elevated heent- nc/at, eomi, anicteric neck supple lungs clear b/l heart reg abd soft, nt, distended, + tenkoff catheter and bandaged, + bs ext +inc b/l leg edema neuro- rt weaker then left arm, + no asterixis Urinary Catheter Management: Polanco: Cath Placed During This Visit: yes, but has since been removed by the nurse Reason for Continuing Indwelling Catheter: Accurate Measurement of Urinary Outpu t in Critically Ill Patients Urinary Catheter Date of Insertion: 01/28/22 Urinary Catheter Time of Insertion: 15:03 Date Urinary Catheter Removed: 02/01/22 Time Urinary Catheter Discontinued: 20:06 Data : 02/08/22 04:20 02/08/22 04:20 A&P Assessment and plan (1) KEL (acute kidney injury): 51 yr old man Acute CVA, KEL, accelerated HTN, brain mass. 1. ECHO- EF 65%,Severe concentric left ?ventricular hypertrophy. Grade II diastolic dysfunction, ?moderately elevated filling pressures. Gcxr-en-huuxysvl tricuspid valve regurgitation. 2. HTN- on multiple meds. will start PD once Dr Santacruz allows using catheter 3. ESRD- POD # 1 s/p PD catheetr placement by dR Santacruz- to start CAPD today- discusse dw/ Dr Santacruz and he is okay w/using tenkoff catheter 4. Brain mass/ CVA- MRA negative MRI- ? Acute diffusion-weighted infarcts involving the LEFT lateral and dorsal medulla. Additional small multifocal lacunar infarcts throughout the RIGHT brain involving the occipital lobe, frontal and parietal lobes. Due to the different arterial distributions consider embolic source. Posterior and anterior circulation infarcts. If echocardiogram has not been performed this should be obtained to evaluate for embolic source. Follow-up carotid ultrasound, CTA or MRA recommended of the carotid arteries and [place] of [place]. 2.? Possible but indeterminate LEFT hamm radiata and medial LEFT temporal lobe tiny acute infarcts. 3.? Lobulated mass with foci of calcification along the anterior LEFT interhemispheric falx measures 2.5 x 2.6 x 2.7 cm. Mass extends across the falx into the RIGHT cerebrum. Favor this is probably a meningioma. Follow-up evaluation with IV contrast is recommended when the patient's renal function permits. will need neuro f/u.- AVOID GADOLINIUM- RISK OF nsf 5. anemia- iron sat 22% ferritin 384- iron- monitor hgb, may need EZEQUIEL 6. hyperlipidemia- lipitor 7. norml tsh 8. renal bone mineral metabolism- phos IMPRVING TO 6.8 ON binders. check pth= 164 - can start vit d analouge 9.mild met acidosis- on na bicarb 10. social issue-APPRECIATE Dr. Proctor's efforts to ensure he has f/u at [facility] on d/c if PD catheter works well then okay for d/c and f/u w/ [facility] seen and examined w/ RN- telehealth visit -informed consent for telehealth obtained . Status: Acute Plan as above - start CAPD Attestations Medical Necessity Statement*: esrd Time Spent in Patient Care: 16 - 35 minutes (>than 50% of time spent in counselling and/or direct pt care on unit) . Coding Level of Care Code Acute Green Chainer for g Fwd Diagnoses KEL (acute kidney injury) N17.9
[2022-02-08] MEDS: sevelamer 800 mg Tablet 1600 MG PO ×3 (09:30→22:02)
[2022-02-08] MEDS: carvedilol 12.5 mg Tablet PO ×2 (09:30→18:48)
[2022-02-08] MEDS: hyDRALAzine 50 mg Tablet PO ×3 (09:31→22:02)
[2022-02-08] MEDS: b-complex-vitamin c Tablet 1 EACH PO (09:31)
[2022-02-08] MEDS: cloNIDine 0.1 mg Tablet 0.2 MG PO ×2 (09:32→18:47)
[2022-02-08] MEDS: atorvastatin 40 mg Tablet PO (09:32)
[2022-02-08] MEDS: aspirin 81 mg EC Tablet PO (09:33)
[2022-02-08] MEDS: NIFEdipine ER (24 hr) 30 mg Tablet 90 MG PO (09:33)
[2022-02-08] MEDS: sodium bicarbonate 650 mg Tablet PO ×2 (09:33→18:48)
[2022-02-08] MEDS: nystatin powder 15 gm Btl 1 APPLIC TOPICAL (09:35)
[2022-02-08] MEDS: lactulose oral liq 20 gm/30 mL UDC 30 GM PO ×3 (11:03→22:02)
[2022-02-08] MEDS: Dianeal low Ca w/1.5% dex 2,000 mL Bag 2000 ML INTRAPERIT ×2 (11:15→22:23)
--- NOTE | 2022-02-08 15:07 | P.PN_ITS ---
Subjective Subjective: Patient was seen and examined this morning, was complaining of constipation.Plan is to initiate PD today. Medications: Reviewed: Yes Medication Review Details: Generic Name Dose Route Start Last Admin Trade Name Jamari PRCheco Reason Stop Dose Admin Aspirin 81 mg 01/28/22 09:00 02/08/22 09:33 Aspirin 81 Mg Ec Tablet PO 81 mg DAILY KINGA Administration Atorvastatin Calci um 40 mg 01/28/22 09:00 02/08/22 09:32 Atorvastatin 40 Mg Tablet PO 40 mg DAILY KINGA Administration Carvedilol 12.5 mg 02/03/22 20:10 02/08/22 09:30 Carvedilol 12.5 Mg Tablet PO 12.5 mg BID KINGA Administration Clonidine HCl 0.2 mg 02/02/22 18:00 02/08/22 09:32 Clonidine 0.1 Mg Tablet PO 0.2 mg BID KINGA Administration Heparin Sodium (Po rcine) 5,000 unit 01/27/22 13:12 02/08/22 00:57 Heparin 5,000 Un it/Ml Inj 1 Ml SUBCUT 5,000 unit Q12H KINGA Administration Hydralazine HCl 50 mg 01/29/22 09:00 02/08/22 09:31 Hydralazine 50 M g Tablet PO 50 mg TID KINGA Administration Lactulose 30 gm 02/08/22 10:54 02/08/22 11:03 Lactulose Oral L iq 20 Gm/30 Ml Udc PO 30 gm TID KINGA Administration Multivitamins 1 each 01/30/22 09:00 02/08/22 09:31 H-Cjyrunx-Rclciy n C Tablet PO 1 each DAILY KINGA Administration Nifedipine 90 mg 02/04/22 09:00 02/08/22 09:33 Nifedipine Er (2 4 Hr) 30 Mg Tablet PO 90 mg DAILY KINGA Administration Nystatin 1 applic 02/05/22 10:00 02/08/22 09:35 Nystatin Powder 15 Gm Btl TOPICAL 1 applic BID KINGA Administration Peritoneal Dialysi s Solution 2,000 ml 02/08/22 10:11 02/08/22 11:15 Dianeal Low Ca W /1.5% Dex 2,000 Ml Bag INTRAPERIT 2,000 ml BID@0900,2100 KINGA Administration Senna/Docusate Sod ium 1 tab 02/04/22 04:11 02/05/22 17:54 Sennosides-Docus ate Tablet PO 1 tab DAILY PRN Administration CONSTIPATION Sevelamer Carbonat e 1,600 mg 01/31/22 15:00 02/08/22 09:30 Sevelamer 800 Mg Tablet PO 1,600 mg TID KINGA Administration Sodium Bicarbonate 650 mg 02/06/22 09:00 02/08/22 09:33 Sodium Bicarbona te 650 Mg Tablet PO 650 mg BID KINGA Administration Vitals/I&O/Wt Last Vital Signs Temp 98.1 F 02/08/22 11:35 Pulse 71 02/08/22 11:35 Resp 18 02/08/22 11:35 BP 162/86 02/08/22 11:35 Pulse Ox 95 02/08/22 11:35 O2 Del Method 02/08/22 11:35 O2 Flow Rate 10 02/08/22 08:00 02/08/22 02/08/22 02/08/22 06:59 14:59 22:59 Intake Total 240 / 1030 Balance 240 / 1027 Weight last 48 hrs Weight 102.965 kg Weight 114.85 kg Physical Exam Const: COMMON NORMALS: patient oriented x3 Resp: COMMON NORMALS: normal respiratory effort, No retractions, No use of accessory muscles and clear to auscultation bilaterally EFFORT & INSPECTION: Yes symmetric chest movement AUSCULTATION: clear to auscultation bilaterally Cardio: COMMON NORMALS: regular rate, regular rhythm, S1 normal heart sound present, S2 normal heart sound present, No gallops present (Cardio), No murmurs present (Cardio), No rub (Cardio) and Peripheral pulses 2+ throughout RATE: regular rate RHYTHM: regular rhythm HEART SOUNDS: S1 normal heart sound present and S2 normal heart sound present PERIPHERAL PULSES: Peripheral pulses 2+ throughout GI: COMMON NORMALS: Normal to inspection, nondistended, normoactive bowel sounds present, Soft to palpation, non-tender, No hepatosplenomegaly present and no masses AUSCULTATION: Yes normoactive bowel sounds PALPATION: Yes Soft to palpation and Yes No hepatosplenomegaly present RECTAL EXAM: Yes deferred Extremity: COMMON NORMALS: no clubbing, cyanosis or edema and no pedal edema Neuro: COMMON NORMALS: patient oriented x3 Urinary Catheter Management: Polanco: Cath Placed During This Visit: yes, but has since been removed by the nurse Reason for Continuing Indwelling Catheter: Accurate Measurement of Urinary Output in Critically Ill Patients Urinary Catheter Date of Insertion: 01/28/22 Urinary Catheter Time of Insertion: 15:03 Date Urinary Catheter Removed: 02/01/22 Time Urinary Catheter Discontinued: 20:06 Data : 02/08/22 04:20 02/08/22 04:20 A&P Assessment and plan (1) CVA (cerebral vascular accident): left-sided CVA due to uncontrolled hypertension no intervene able carotid lesions no A. fib or valvular concern thus far identified however the MRI is concerning for embolic source CT head showed small vessel ischemic disease but called me personally today and voiced concerns regarding embolic findings on the more sensitive MRI Echo was good quality but will be repeated with bubble study. We will also perform MRA no contrast outpatient Holter monitor for 30 days should also be considered Continue ST/OT/PT consultations Aspirin 81 mg daily. Initiated statin and noted that his cholesterol only mildly elevated blood pressure elevated again so will increase clonidine to 0.2 mg twice a day I ordered echo with bubble study, thoracic aorta evaluation, , MRA brain no contrast Status: Acute (2) KEL (acute kidney injury): Appears to be hypertensive nephropathy with proteinuria Note that urinalysis have 3+ protein but no significant hematuria Nephrology consultation noted considering dialysis Renal failure diet please I filled out paperwork for stage V kidney disease today help the patient obtain much-needed Medicare coverage I spoke with patient and also with Dr. Garzon and Dr. Santacruz plan for peritoneal dialysis catheter placement and initiate PD Status: Acute (3) Accelerated hypertension: Placed on nicardipine in the emergency department and stopped Changed to oral medications. labetolol stopped Continue hydralazine, nifedipine, metoprolol and clonidine Increased dose for goal 150/90 or lower Status: Acute (4) Brain mass: This appears to be an incidental finding at this time. There is no evidence of surrounding edema and it is calcified. Location does not seem to explain right hand weakness. Monitor for any seizure activity See MRI results Status: Acute Plan Acute CVA: CT head wo con: Mixed density anterior LEFT parasagittal mass measures 2.9 x 2.5 cm and extends over length of 2.8 cm. Increased density is probably calcification within a meningioma. Favor this is an extra-axial mass. No edema within the adjacent brain or sulcal effacement. Recommend follow-up MRI brain with and without contrast to better evaluate for a dural tail and extra-axial position. Mild small vessel ischemic disease. CV carotid duplex BI* ?Bilateral ICA stenosis less than 50% 2D echo: Normal left ventricular size and systolic function with no ?regional wall motion abnormalities. Left ventricular ejection ?fraction is estimated at 65 %. Severe concentric left ?ventricular hypertrophy. Grade II diastolic dysfunction, ?moderately elevated filling pressures. [id number]-[id number] tricuspid valve regurgitation.? No prior siilar studies to compare. CTA head and neck with contrast could not be done: Due to advanced CKD. Brain mass: Incidental finding on CT, will need further outpatient work-up MRI today brain mass again seen. Not able to give contrast to look for meningioma findings Multiple areas of infarct were suggested Full code Heparin subcutaneous for DVT prophylaxis Attestations Medical Necessity Statement*: In hospital for peritoneal dialysis initiation. Coding Level of Care Code Acute Microbiology Lab Manager for Chg Fwd Diagnoses CVA (cerebral vascular accident) I63.9 KEL (acute kidney injury) N17.9 Accelerated hypertension I10 Brain mass G93.89
--- NOTE | 2022-02-08 16:13 | PC.OT ---
OT TREATMENT ATTEMPTED. PATIENT SPEAKING ON PHONE AND UNABLE TO PARTICIPATE AT THIS TIME. WILL ATTEMPT AGAIN TOMORROW.
--- NOTE | 2022-02-08 16:17 | XRR_ITS ---
PROCEDURE INFORMATION: Exam: XR Abdomen Exam date and time: 02/08/2022 4:56 PM Age: 51 years old Clinical indication: Constipation; Abdominal pain; Additional info: Abd pain and constipation TECHNIQUE: Imaging protocol: Radiologic exam of the abdomen. Views: Frontal supine view of the abdomen. 1 View. COMPARISON: US renal BI* [id number] 01/27/2022 2:09 PM FINDINGS: Limitations: Study is limited by portable technique. Tubes, catheters and devices: There is a peritoneal dialysis catheter in place. Gastrointestinal tract: Bowel gas pattern is grossly unremarkable. Bones/joints: There is degenerative change and mild scoliosis in the lumbar spine concave to the right. XR/XR KUB [id number] IMPRESSION: Limited exam. No acute finding.
[2022-02-08] MEDS: HYDROcodone-acetaminophen 7.5-325 mg Tablet 1 TAB PO (18:51)
[2022-02-09] VITALS (8 sets, daily range): BP systolic 136–158; BP diastolic 75–77; PULSE 64–69; RESP 16–18; TEMP 36.6–36.8; O2SAT 96–97
[2022-02-09] MEDS: heparin 5,000 unit/mL INJ 1 mL 5000 UNIT SUBCUT (01:16)
--- NOTE | 2022-02-09 07:04 | PM.PN ---
Subjective Subjective: started PD yesterday. had some abd pain and distention. had a BM Medications: Reviewed: Yes Medication Review Details: Current Medications Acetaminophen (Acetaminophen 325 Mg Tablet) 650 mg PO Q6H PRN PRN Reason: MILD PAIN Hydrocodone Bitart/Acetaminophen (Hydrocodone-Acetaminophen 7.5-325 Mg Tablet) 1 tab PO Q4H PRN PRN Reason: MODERATE PAIN Last Admin: 02/08/22 18:51 Dose: 1 tab Aspirin (Aspirin 81 Mg Ec Tablet) 81 mg PO DAILY [facility] Last Admin: 02/08/22 09:33 Dose: 81 mg Atorvastatin Calcium (Atorvastatin 40 Mg Tablet) 40 mg PO DAILY [facility] Last Admin: 02/08/22 09:32 Dose: 40 mg Carvedilol (Carvedilol 12.5 Mg Tablet) 12.5 mg PO BID [facility] Last Admin: 02/08/22 18:48 Dose: 12.5 mg Clonidine HCl (Clonidine 0.1 Mg Tablet) 0.2 mg PO BID [facility] Last Admin: 02/08/22 18:47 Dose: 0.2 mg Heparin Sodium (Porcine) (Heparin 5,000 Unit/Ml Inj 1 Ml) 5,000 unit SUBCUT Q12H [facility] Last Admin: 02/09/22 01:16 Dose: 5,000 unit Hydralazine HCl (Hydralazine 50 Mg Tablet) 50 mg PO TID [facility] Last Admin: 02/08/22 22:02 Dose: 50 mg Hydromorphone HCl (Hydromorphone 1 Mg/Ml Inj 1 Ml) 0.5 mg IVP Q4H PRN PRN Reason: severe PAIN Lactulose (Lactulose Oral Liq 20 Gm/30 Ml Udc) 30 gm PO TID [facility] Last Admin: 02/08/22 22:02 Dose: 30 gm Multivitamins (Z-Gjzmsws-Hyguwwq C Tablet) 1 each PO DAILY [facility] Last Admin: 02/08/22 09:31 Dose: 1 each Nifedipine (Nifedipine Er (24 Hr) 30 Mg Tablet) 90 mg PO DAILY [facility] Last Admin: 02/08/22 09:33 Dose: 90 mg Nystatin (Nystatin Powder 15 Gm Btl) 1 applic TOPICAL BID [facility] Last Admin: 02/08/22 18:48 Dose: Not Given Ondansetron HCl (Ondansetron 2 Mg/Ml Sdv 2 Ml) 4 mg IVP Q6H PRN PRN Reason: NAUSEA AND VOMITING Peritoneal Dialysis Solution (Dianeal Low Ca W/1.5% Dex 2,000 Ml Bag) 2,000 ml INTRAPERIT BID@0900,2100 [facility] Last Admin: 02/08/22 22:23 Dose: 2,000 ml Senna/Docusate Sodium (Sennosides-Docusate Tablet) 1 tab PO DAILY PRN PRN Reason: CONSTIPATION Last Admin: 02/05/22 17:54 Dose: 1 tab Sevelamer Carbonate (Sevelamer 800 Mg Tablet) 1,600 mg PO TID [facility] Last Admin: 02/08/22 22:02 Dose: 1,600 mg Sodium Bicarbonate (Sodium Bicarbonate 650 Mg Tablet) 650 mg PO BID [facility] Last Admin: 02/08/22 18:48 Dose: 650 mg Vitals/I&O/Wt Last Vital Signs Temp 98.0 F 02/09/22 04:00 Pulse 68 02/09/22 06:00 Resp 18 02/09/22 04:00 BP 136/75 02/09/22 04:00 Pulse Ox 96 02/09/22 04:00 O2 Del Method 02/08/22 15:31 O2 Flow Rate 10 02/08/22 08:00 02/08/22 02/09/22 02/09/22 22:59 06:59 14:59 Intake Total 120 / 360 Output Total 725 / 725 Balance 120 / 360 -725 / -365 Weight last 48 hrs Weight 102.965 kg Physical Exam Narrative: comfortable, sitting, NARD, VSS heent- nc/at, eomi, anicteric neck supple lungs dull bases b/l heart reg abd soft, some tenderness by surgical site, distended, + tenkoff catheter and bandaged, + bs ext + b/l leg edema neuro- rt weaker then left arm, more awake and alert Urinary Catheter Management: Polanco: Cath Placed During This Visit: yes, but has since been removed by the nurse Reason for Continuing Indwelling Catheter: Accurate Measurement of Urinary Output in Critically Ill Patients Urinary Catheter Date of Insertion: 02/08/22 Urinary Catheter Time of Insertion: 16:20 Date Urinary Catheter Removed: 02/01/22 Time Urinary Catheter Discontinued: 20:06 Data : 02/08/22 04:20 02/08/22 04:20 A&P Assessment and plan (1) KEL (acute kidney injury): 51 yr old man Acute CVA, EKL, accelerated HTN, brain mass. 1. ECHO- EF 65%,Severe concentric left ?ventricular hypertrophy. Grade II diastolic dysfunction, ?moderately elevated filling pressures. Nttz-ym-dlcterkh tricuspid valve regurgitation. 2. HTN- on multiple meds. BP improving- dec meds as started PD r 3. ESRD- POD # 2 s/p PD catheetr placement by dR Santacruz- do CAPD today 3 exchanges of 4 hr- renal okay w/ d/c to outpt clinic for PD training 4. Brain mass/ CVA- MRA negative MRI- ? Acute diffusion-weighted infarcts involving the LEFT lateral and dorsal medulla. Additional small multifocal lacunar infarcts throughout the RIGHT brain involving the occipital lobe, frontal and parietal lobes. Due to the different arterial distributions consider embolic source. Posterior and anterior circulation infarcts. If echocardiogram has not been performed this should be obtained to evaluate for embolic source. Follow-up carotid ultrasound, CTA or MRA recommended of the carotid arteries and [place]. 2.? Possible but indeterminate LEFT hamm radiata and medial LEFT temporal lobe tiny acute infarcts. 3.? Lobulated mass with foci of calcification along the anterior LEFT interhemispheric falx measures 2.5 x 2.6 x 2.7 cm. Mass extends across the falx into the RIGHT cerebrum. Favor this is probably a meningioma. Follow-up evaluation with IV contrast is recommended when the patient's renal function permits. will need neuro f/u.- AVOID GADOLINIUM- RISK OF nsf 5. anemia- iron sat 22% ferritin 384- iron- monitor hgb, may need EZEQUIEL 6. constipation- kub okay- on laxitives 7. norml tsh 8. renal bone mineral metabolism- phos IMPRVING TO 6.8 ON binders. check pth= 164 - can start vit d analouge 9.mild met acidosis- gold na bicarb as on PD 10. social issue-APPRECIATE Dr. Proctor's efforts to ensure he has f/u at [facility] on d/c seen and examined w/ RN- telehealth visit -informed consent for telehealth obtained . Status: Acute Plan as above - ESRD starting CAPD Attestations Medical Necessity Statement*: per medicine Time Spent in Patient Care: 16 - 35 minutes (>than 50% of time spent in counselling and/or direct pt care on unit). Coding Level of Care Code Acute [employer] for Chg Fwd Diagnoses KEL (acute kidney injury) N17.9
[2022-02-09 09:09] LABS: Basophils % 0.3 %; Eosinophils # 0.4 10^3/uL (0.0-0.8); Eosinophils % 2.5 %; Hematocrit 34.7 % (42.0-52.0); Hemoglobin 10.7 g/dL (11.7-16.6); Lymphocytes # 1.2 10^3/uL (0.8-4.8); Lymphocytes % 7.9 %; Mean Corpuscular HGB Conc 30.8 g/dL (30.0-36.0); Mean Corpuscular Hemoglobin 29.3 pg (28.0-34.0); Mean Corpuscular Volume 95.1 fl (80-94); Mean Platelet Volume 10.1 fL (7.4-10.4); Monocytes # 1.2 10^3/uL (0.2-0.9); Monocytes % 7.9 %; Neutrophils # 12.22 10^3/uL (1.8-7.7); Neutrophils % 80.9 %; Nucleated Red Blood Cells % 0 %; Platelet Count 244 10^3/cmm (130-400); Red Blood Count 3.65 10^6/uL (4.1-5.3); Red Cell Distribution Width 14.7 % (12.1-15.1); White Blood Count 15.1 10^3/uL (4.0-10.0)
[2022-02-09 09:28] LABS: Alanine Aminotransferase 9 U/L (0-41); Albumin Level 3.3 g/dL (3.5-5.2); Alkaline Phosphatase 101 U/L (40-130); Aspartate Amino Transferase 18 U/L (0-40); Calcium 9.4 mg/dL (8.5-10.5); Carbon Dioxide 19 mmol/L (22-29); Chloride 102 mmol/L (98-107); Globulin 3.1 g/dL (1.3-4.6); Glomerular Filtration Rate 7.8 mL/min (90-130); Glucose 97 mg/dL (65-115); Magnesium 2.7 mg/dL (1.7-2.3); Osmolality Calculated 309 mOsm/kg (285-295); Phosphorus 6.3 mg/dL (2.5-4.5); Sodium 137 mmol/L (136-145); Total Bilirubin 0.2 mg/dL (0.15-1.2); Total Protein 6.4 g/dL (6.6-8.7)
[2022-02-09 09:36] LABS: Anion Gap 20.3 (5-19); Blood Urea Nitrogen 84 mg/dL (6-20); Potassium 4.3 mmol/L (3.5-5.1)
[2022-02-09] MEDS: Dianeal low Ca w/1.5% dex 2,000 mL Bag 1500 ML INTRAPERIT (09:56)
[2022-02-09] MEDS: sevelamer 800 mg Tablet 1600 MG PO ×2 (10:02→17:39)
[2022-02-09] MEDS: NIFEdipine ER (24 hr) 30 mg Tablet 90 MG PO (10:02)
[2022-02-09] MEDS: hyDRALAzine 50 mg Tablet PO ×2 (10:02→15:22)
[2022-02-09] MEDS: cloNIDine 0.1 mg Tablet PO ×2 (10:03→17:40)
[2022-02-09] MEDS: b-complex-vitamin c Tablet 1 EACH PO (10:03)
[2022-02-09] MEDS: aspirin 81 mg EC Tablet PO (10:03)
[2022-02-09] MEDS: carvedilol 12.5 mg Tablet PO ×2 (10:03→17:40)
[2022-02-09] MEDS: atorvastatin 40 mg Tablet PO (10:03)
[2022-02-09] MEDS: nystatin powder 15 gm Btl 1 APPLIC TOPICAL (10:04)
--- NOTE | 2022-02-09 10:38 | PM.DCS ---
Discharge Providers Date of Admission: 01/27/22 11:55 Date of Discharge: February 09, 2022 Attending Provider at Admission: Santi Altamirano MD Attending Provider at Discharge: Denis Proctor MD Diagnoses at Discharge Discharge Diagnosis (1) KEL (acute kidney injury): Status: Acute Reason for Visit Reason for Visit: Weakness, Slurred speech, Unstable Hospital Course Hospital Course 51 year-old male with past medical history of uncontrolled hypertension was brought in with chief complaint of acute onset of slurred speech as well as right-sided weakness, he was admitted for the management of acute CVA, was kept on stroke protocol,CT head wo con: Mixed density anterior LEFT parasagittal mass measures 2.9 x 2.5 cm and extends over length of 2.8 cm. Increased density is probably calcification within a meningioma. Favor this is an extra-axial mass. No edema within the adjacent brain or sulcal effacement.CV carotid duplex BI* Bilateral ICA stenosis less than 50%. MR head wo con: 1.? Acute diffusion-weighted infarcts involving the LEFT lateral and dorsal medulla. Additional small multifocal lacunar infarcts throughout the RIGHT brain involving the occipital lobe, frontal and parietal lobes. Due to the different arterial distributions consider embolic source. Posterior and anterior circulation infarcts. If echocardiogram has not been performed this should be obtained to evaluate for embolic source. Follow-up carotid ultrasound, CTA or MRA recommended of the carotid arteries and [place]. 2.? Possible but indeterminate LEFT hamm radiata and medial LEFT temporal lobe tiny acute infarcts. 3.? Lobulated mass with foci of calcification along the anterior LEFT interhemispheric falx measures 2.5 x 2.6 x 2.7 cm. Mass extends across the falx into the RIGHT cerebrum. Favor this is probably a meningioma. Follow-up evaluation with IV contrast is recommended when the patient's renal function permits. MR angio head wo con: 1.? Unremarkable intracranial MRa. No evidence of flow-limiting stenosis or aneurysm. 2D echo: Normal left ventricular size and systolic function with no ?regional wall motion abnormalities. Left ventricular ejection ?fraction is estimated at 65 %. Severe concentric left ?ventricular hypertrophy. Grade II diastolic dysfunction, moderately elevated filling pressures. Uhgv-xz-jfowspzy tricuspid valve regurgitation.? No prior siilar studies to compare. Bubble study failed to show any intracardiac shunt. Patient was discharged on event monitor for a month, and will also follow-up with cardiology as outpatient for possible FRIDA. will also follow neurology as an outpatient. Has been discharged on aspirin and statin. During the hospital stay patient was also managed for end-stage renal disease: Likely secondary to hypertensive nephropathy PD catheter was placed, was initiated on peritoneal dialysis, outpatient nephrology follow-up has been made, he was also continued to go for PD training. For his uncontrolled hypertension: He has been discharged on clonidine nifedipine, carvedilol. Overall patient responded well to above medical management And is being discharged stable condition to home. Physical Exam Const: COMMON NORMALS: patient oriented x3 Resp: COMMON NORMALS: normal respiratory effort, No retractions, No use of accessory muscles and clear to auscultation bilaterally EFFORT & INSPECTION: Yes symmetric chest movement AUSCULTATION: clear to auscultation bilaterally Cardio: COMMON NORMALS: regular rate, regular rhythm, S1 normal heart sound present, S2 normal heart sound present, No gallops present (Cardio), No murmurs present (Cardio), No rub (Cardio) and Peripheral pulses 2+ throughout RATE: regular rate RHYTHM: regular rhythm HEART SOUNDS: S1 normal heart sound present and S2 normal heart sound present PERIPHERAL PULSES: Peripheral pulses 2+ throughout GI: COMMON NORMALS: Normal to inspection, nondistended, normoactive bowel sounds present, Soft to palpation, non-tender, No hepatosplenomegaly present and no masses AUSCULTATION: Yes normoactive bowel sounds PALPATION: Yes Soft to palpation and Yes No hepatosplenomegaly present RECTAL EXAM: Yes deferred Extremity: COMMON NORMALS: no clubbing, cyanosis or edema and no pedal edema Neuro: COMMON NORMALS: patient oriented x3 Urinary Catheter Management: Polanco: Cath Placed During This Visit: yes, but has since been removed by the nurse Reason for Continuing Indwelling Catheter: Accurate Measurement of Urinary Output in Critically Ill Patients Urinary Catheter Date of Insertion: 02/08/22 Urinary Catheter Time of Insertion: 16:20 Date Urinary Catheter Removed: 02/01/22 Time Urinary Catheter Discontinued: 20:06 Discharge Data Studies Completed and Pending Completed Studies During Hospitalization Category Date Time Status CT head wo con* [id number] Stat Cat Scan 01/27/22 08:59 Completed XR KUB [id number] Stat Exams 02/08/22 16:17 Completed MR angio head wo con [id number] Routine MRI 02/06/22 10:00 Completed MR head wo con* [id number] Routine MRI 02/02/22 10:00 Completed CV carotid duplex BI* [id number] Routine Ultrasound 01/27/22 12:47 Completed CV duplex aorta [id number] Urgent Ultrasound 02/04/22 18:43 [place] [id number] Routine Ultrasound 02/02/22 20:16 Completed CV. echo complete* [id number] Routine Ultrasound 01/27/22 12:54 Completed CV. echo lmt wo/w bubble [id number] Routine Ultrasound 02/05/22 11:38 Completed US renal BI* [id number] Routine Ultrasound 01/27/22 12:38 Completed Pending at discharge Category Date Time Status Complete Blood Count w/Auto AM LABS Lab 02/10/22 04:00 Ordered Complete Blood Count w/Auto AM LABS Lab 02/11/22 04:00 Ordered Complete Blood Count w/Auto AM LABS Lab 02/12/22 04:00 Ordered Comprehensive Metabolic Panel AM LABS Lab 02/10/22 04:00 Ordered Comprehensive Metabolic Panel AM LABS Lab 02/11/22 04:00 Ordered Comprehensive Metabolic Panel AM LABS Lab 02/12/22 04:00 Ordered Magnesium AM LABS Lab 02/10/22 04:00 Ordered Magnesium AM LABS Lab 02/11/22 04:00 Ordered Magnesium AM LABS Lab 02/12/22 04:00 Ordered Phosphorus AM LABS Lab 02/10/22 04:00 Ordered Phosphorus AM LABS Lab 02/11/22 04:00 Ordered Phosphorus AM LABS Lab 02/12/22 04:00 Ordered CV duplex aorta [id number] Routine Ultrasound 02/05/22 Taken Radiology Impressions Head CT 01/27/22 08:59 IMPRESSION: 1. Mixed density anterior LEFT parasagittal mass measures 2.9 x 2.5 cm and extends over length of 2.8 cm. Increased density is probably calcification within a meningioma. Favor this is an extra-axial mass. No edema within the adjacent brain or sulcal effacement. Recommend follow-up MRI brain with and without contrast to better evaluate for a dural tail and extra-axial position. 2. Mild small vessel ischemic disease. Renal Ultrasound 01/27/22 12:38 IMPRESSION: Severe bilateral chronic medical renal disease. No obstruction. Head MRI 02/02/22 10:00 IMPRESSION: 1. Acute diffusion-weighted infarcts involving the LEFT lateral and dorsal medulla. Additional small multifocal lacunar infarcts throughout the RIGHT brain involving the occipital lobe, frontal and parietal lobes. Due to the different arterial distributions consider embolic source. Posterior and anterior circulation infarcts. If echocardiogram has not been performed this should be obtained to evaluate for embolic source. Follow-up carotid ultrasound, CTA or MRA recommended of the carotid arteries and [place]. 2. Possible but indeterminate LEFT hamm radiata and medial LEFT temporal lobe tiny acute infarcts. 3. Lobulated mass with foci of calcification along the anterior LEFT interhemispheric falx measures 2.5 x 2.6 x 2.7 cm. Mass extends across the falx into the RIGHT cerebrum. Favor this is probably a meningioma. Follow-up evaluation with IV contrast is recommended when the patient's renal function permits. Notified Carl Cyr MD at 02/02/2022 12:21 PM. Aorta Iliac Vascular Ultrasound 02/04/22 18:43 IMPRESSION: Unremarkable sonographic appearance of the abdominal aorta. Please note that if evaluation of the thoracic aorta is desired, CTA would be recommended. Head MRA 02/06/22 10:00 IMPRESSION: 1. Unremarkable intracranial MRa. 2. No evidence of flow-limiting stenosis or aneurysm. KUB X-Ray 02/08/22 16:17 IMPRESSION: Limited exam. No acute finding. Laboratory Results WBC 15.1 10^3/uL (4.0-10.0) H 02/09/22 08:58 RBC 3.65 10^6/uL (4.1-5.3) L 02/09/22 08:58 Hgb 10.7 g/dL (11.7-16.6) L 02/09/22 08:58 Hct 34.7 % (42.0-52.0) L 02/09/22 08:58 MCV 95.1 fl (80-94) H 02/09/22 08:58 MCH 29.3 pg (28.0-34.0) 02/09/22 08:58 MCHC 30.8 g/dL (30.0-36.0) 02/09/22 08:58 RDW 14.7 % (12.1-15.1) 02/09/22 08:58 Plt Count 244 10^3/cmm (130-400) 02/09/22 08:58 MPV 10.1 fL (7.4-10.4) 02/09/22 08:58 Neut % (Auto) 80.9 % 02/09/22 08:58 Lymph % (Auto) 7.9 % 02/09/22 08:58 [place] % (Auto) 7.9 % 02/09/22 08:58 Eos % (Auto) 2.5 % 02/09/22 08:58 Baso % (Auto) 0.3 % 02/09/22 08:58 Neut # (Auto) 12.22 10^3/uL (1.8-7.7) H 02/09/22 08:58 Lymph # (Auto) 1.2 10^3/uL (0.8-4.8) 02/09/22 08:58 [place] # (Auto) 1.2 10^3/uL (0.2-0.9) H 02/09/22 08:58 Eos # (Auto) 0.4 10^3/uL (0.0-0.8) 02/09/22 08:58 Baso # (Auto) 0.0 10^3/uL (0.0-0.1) 02/09/22 08:58 Nucleated RBC % (auto) 0 % 02/09/22 08:58 Nucleated RBCs # 0.0 /100WBC 02/09/22 08:58 PT 13.90 SECONDS (12.1-14.9) 01/27/22 09:29 INR 1.04 (0.8-1.2) 01/27/22 09:29 APTT 29.0 SECONDS (23.9-36.7) 01/27/22 09:29 D-Dimer 0.88 ug/mIFEU (0-0.59) H 02/02/22 21:15 Sodium 137 mmol/L (136-145) 02/09/22 08:58 Potassium 4.3 mmol/L (3.5-5.1) 02/09/22 08:58 Chloride 102 mmol/L (98-107) 02/09/22 08:58 Carbon Dioxide 19 mmol/L (22-29) L 02/09/22 08:58 Anion Gap 20.3 (5-19) H 02/09/22 08:58 BUN 84 mg/dL (6-20) H* 02/09/22 08:58 Creatinine 7.4 mg/dL (0.7-1.2) H* 02/09/22 08:58 GFR Calculation 7.8 mL/min (90-130) L 02/09/22 08:58 Glucose 97 mg/dL (65-115) 02/09/22 08:58 POC Glucose 107 mg/dL (70-110) 01/27/22 09:07 Estimat Average Glucose 103 01/28/22 03:40 Hemoglobin A1c 5.2 % (4.0-6.0) 01/28/22 03:40 Calculated Osmolality 309 mOsm/kg (285-295) H 02/09/22 08:58 Uric Acid 9.4 mg/dL (3.4-7.0) H 01/30/22 07:25 Calcium 9.4 mg/dL (8.5-10.5) 02/09/22 08:58 Phosphorus 6.3 mg/dL (2.5-4.5) H 02/09/22 08:58 Magnesium 2.7 mg/dL (1.7-2.3) H 02/09/22 08:58 Iron 45 ug/dL (59-158) L 01/29/22 03:35 TIBC 206 mcg/dl 01/29/22 03:35 % Saturation 21.8 % (20-50) 01/29/22 03:35 Unsat Iron Binding 161 ug/dL (112-347) 01/29/22 03:35 Ferritin 384 ng/mL (30-400) 01/29/22 03:35 Total Bilirubin 0.2 mg/dL (0.15-1.2) 02/09/22 08:58 AST 18 U/L (0-40) 02/09/22 08:58 ALT 9 U/L (0-41) 02/09/22 08:58 Alkaline Phosphatase 101 U/L (40-130) 02/09/22 08:58 Creatine Kinase 173 U/L (39-308) 01/27/22 09:29 Total Protein 6.4 g/dL (6.6-8.7) L 02/09/22 08:58 Albumin 3.3 g/dL (3.5-5.2) L 02/09/22 08:58 Globulin 3.1 g/dL (1.3-4.6) 02/09/22 08:58 Vemsr-5-Pvbzjjzqz 0.3 g/dL (0.2-0.3) 01/27/22 14:10 Yvqml-5-Igdtguunm 0.7 g/dL (0.5-0.9) 01/27/22 14:10 Yoqr-9-Pjdasizu 0.4 g/dL (0.4-0.6) 01/27/22 14:10 Bxbr-5-Vwblwtqj 0.4 g/dL (0.2-0.5) 01/27/22 14:10 Gamma Globulins 0.9 g/dL (0.8-1.7) 01/27/22 14:10 Abnorm Protein Band 1 Not Reportable 01/27/22 14:10 Triglycerides 91 mg/dL (0-150) 01/28/22 03:40 Cholesterol 165 mg/dL (0-200) 01/28/22 03:40 LDL Cholesterol, Calc 113 mg/dL (50-129) 01/28/22 03:40 HDL Cholesterol 34 mg/dL (60-100) L 01/28/22 03:40 LDL/HDL Ratio 3.32 RATIO (0.00-3.22) H 01/28/22 03:40 Cholesterol/HDL Ratio 4.85 mg/dL (1.0-5.00) 01/28/22 03:40 25-OH Vitamin D Total 26 ng/mL (30-100) L 01/31/22 03:39 1,25 Dihydroxy Vit D2 <8 pg/mL 01/30/22 09:45 1,25 Dihydroxy Vit D3 12 pg/mL 01/30/22 09:45 TSH 2.39 uIU/mL (0.27-4.20) 01/27/22 09:24 PTH Intact 164.4 pg/mL (15-65) H 01/31/22 03:39 Calcium (PTH Intact) 8.6 mg/dL (8.5-10.5) 01/31/22 03:39 Urine Color Colorless (Yellow) 01/30/22 08:00 Urine Appearance Clear (CLEAR) 01/30/22 08:00 Urine pH 6 (5-7) 01/30/22 08:00 Ur Specific [place] 1.010 (1.005-1.030) 01/30/22 08:00 Urine Protein 3+ (Negative) H 01/30/22 08:00 Urine Glucose (UA) Trace (Normal) H 01/30/22 08:00 Urine Ketones Negative (Negative) 01/30/22 08:00 Urine Blood 2+ (Negative) H 01/30/22 08:00 Urine Nitrate Negative (Negative) 01/30/22 08:00 Urine Bilirubin Neg (Negative) 01/30/22 08:00 Urine Urobilinogen Norm mg/dL (Negative) 01/30/22 08:00 Ur Leukocyte Esterase Negative (Negative) 01/30/22 08:00 Urine RBC 0-4 /hpf (0-2) H 01/30/22 08:00 Urine WBC 15-25 /hpf (0-5) H 01/30/22 08:00 Ur Squamous Epith Cells 0-4 /hpf (0-5) H 01/30/22 08:00 Amorphous Sediment Not Reportable 01/30/22 08:00 Urine Bacteria 1+ /hpf (NONE) H 01/30/22 08:00 U Random Total Protein 437 mg/dL 01/28/22 13:45 Ur Random Sodium 74 mmol/L 01/30/22 08:00 Urine Creatinine 125 mg/dL (39-259) 01/28/22 13:45 U Abnormal Prot Band 2 Not Reportable 01/27/22 14:10 U Abnormal Prot Band 3 Not Reportable 01/27/22 14:10 Urine Opiates Screen Negative ng/mL (Negative) 01/27/22 11:14 Ur Barbiturates Screen Negative ng/mL (Negative) 01/27/22 11:14 Ur Phencyclidine Scrn Negative ng/mL (Negative) 01/27/22 11:14 Ur Amphetamines Screen Negative ng/mL (Negative) 01/27/22 11:14 U Benzodiazepines Scrn Negative ng/mL (Negative) 01/27/22 11:14 Urine Cocaine Screen Negative ng/mL (Negative) 01/27/22 11:14 U Marijuana (THC) Screen Negative ng/mL (Negative) 01/27/22 11:14 Pro Electrophoresis Int See note 01/27/22 14:10 DIANE Screen Negative (NEGATIVE) 01/27/22 14:10 ANCA Screen Negative (NEGATIVE) 01/27/22 14:10 ANCA Titer Not Reportable 01/27/22 14:10 Glomerular Base Mem IgG <1.0 AI 01/27/22 14:10 Complement C3 104 mg/dL (90-180) 01/27/22 09:27 Complement C4 26 mg/dL (10-40) 01/27/22 09:27 Tot Complement (CH50) >60 U/mL (31-60) H 01/27/22 14:10 Free [place] Light Chains 93.9 mg/L (3.3-19.4) H 01/27/22 14:10 Free [place] Light Chain 57.6 mg/L (5.7-26.3) H 01/27/22 14:10 Free [place]/Lambda Ratio 1.63 (0.26-1.65) 01/27/22 14:10 Hep Bs Antigen Non-reactive (Nonreactive) 02/05/22 05:10 Hep Bs Antibody 3.5 (11.5-1000) L 02/05/22 05:10 Hep B Core Total Ab Non-reactive (Nonreactive) 02/05/22 05:10 Hepatitis C Antibody Non-reactive (Nonreactive) 02/05/22 05:10 HIV 1&2 Ab & HIV 1 Ag Non-reactive (Non-Reactiv) 01/30/22 09:45 HIV 1&2 Antibody Non-reactive (Non-Reactiv) 01/30/22 09:45 Vitals Last Vital Signs Temp 98.2 F 02/09/22 08:00 Pulse 64 02/09/22 08:00 Resp 16 02/09/22 08:00 BP 158/75 02/09/22 10:03 Pulse Ox 97 02/09/22 08:00 O2 Del Method 02/09/22 08:00 O2 Flow Rate 10 02/08/22 08:00 Discharge Plan Discharge Patient Disposition: Home Condition: Stable Prescriptions: New atorvastatin 40 mg Tablet 40 mg PO DAILY 30 Days Qty: 30 3RF carvedilol 12.5 mg Tablet 12.5 mg PO BID 30 Days Qty: 60 3RF aspirin 81 mg Tablet,Delayed Release (Dr/Ec) 81 mg PO DAILY 30 Days Qty: 30 3RF B-complex with vitamin C Tablet 1 ea PO DAILY 30 Days Qty: 30 0RF clonidine HCl 0.2 mg tablet 0.2 mg PO TID Qty: 90 1RF nifedipine 30 mg Tablet Extended Release 24 Hr 90 mg PO DAILY 30 Days Qty: 30 3RF Stool Softener-Laxative 8.6-50 mg Tablet 1 tab PO DAILY PRN (Reason: Constipation) 30 Days Qty: 30 0RF sevelamer carbonate 800 mg Tablet 1,600 mg PO TID 30 Days Qty: 180 3RF Continued Vitamin D3 50 mcg (2,000 unit) Capsule 50 mcg PO DAILY astaxanthin 4 mg Capsule 4 mg PO DAILY Discontinued ascorbic acid (vitamin C) [Vitamin C] 1,000 mg Tablet 500 mg PO BID vitamin K2 40 mcg Tablet 80 mcg PO DAILY Discharge Orders: Discharge Order (Routine); Ordered 02/09/22 Ordered By: Denis Proctor Other Ambulatory Orders: MCT/Event Monitor 30 Days (Routine) Timeframe: 1 Week Facility: [facility] - Location: Radiology Ordered By: Denis Proctor Physical Therapy Outpatient in Home Eval and Treat Other (Order) Facility: [facility] - Location: Physical Therapy Ordered By: Denis Proctor Referrals: Jennifer Marcum MD [Physician] - 02/20/22 11:45 am Flavio Giraldo MD [Referring] - 2 weeks (Dr Giraldo's office will call with your appointment date and time.) Gm Borden M.D [Physician] - 03/23/22 12:45 pm Eun Masterson DO [Physician] - 02/20/22 1:15 pm Patient Instructions: Nifedipine (By mouth), Clonidine (By mouth), Aspirin (By mouth), Atorvastatin (By mouth), Carvedilol (By mouth), Sevelamer (By mouth), Senna (By mouth), Dialysis Diet (GEN), Ischemic Stroke (GEN), Peritoneal Dialysis Catheter Care (DC), Peritoneal Dialysis (DC), Opioid Safety, Stroke Stoplight Activity Restrictions/Additional Instructions: Please come to [facility] on Sunday02/14/22 at 1:45pm to get your heart monitor Discharge Attestations Time Spent in Discharge Care*: less than 30 min Quality Metrics Clinical Quality Measures [ No reported AMI, CVA or VTE this stay] Coding Level of Care Code Acute Chg FW DC note Diagnoses KEL (acute kidney injury) N17.9
--- NOTE | 2022-02-09 18:58 | PC.NURSE ---
Discharge Note Patient discharged to home via private vehicle accompanied by . Discharge instructions reviewed with patient and/or sales account representative. Mobile pharmacy medications and/or prescriptions provided. Belongings/home medications returned.
--- NOTE | 2022-02-10 17:50 | PC.SOCIAL ---
Inga called and asked for PD surgery report. Report isn't in the computer, CM spoke to Iliana with [facility] and she states that she isn't able to see it either. BIJAN called Dr. Bosch office and they were going to ask him to put in a note so that CM could fax it.
== END 2022-02-09 18:00 | disposition home or self-care (01) | DRG 982 ==
LOC: ER 11:52 → ICU 13:53 → MEDSURG 01-31 21:04
PROVIDERS: Internal Medicine; Internal Medicine Nephrology; Surgery; Admitting Provider Internal Medicine; Emergency Provider Family Medicine; Visit Provider Internal Medicine
PROC: 0WHG43Z Insertion of Infusion Device into Peritoneal Cavity, Percutaneous Endoscopic Approach (ICD-10-PCS; CPT 49324; principal; 2022-02-07 07:00)
DX: I63.9 Cerebral infarction, unspecified (principal); G81.91 Hemiplegia, unspecified affecting right dominant side; I12.0 Hypertensive chronic kidney disease with stage 5 chronic kidney disease or end stage renal disease; N18.5 Chronic kidney disease, stage 5; N17.9 Acute kidney failure, unspecified; I16.1 Hypertensive emergency; R47.81 Slurred speech; R29.702 NIHSS score 2; G93.9 Disorder of brain, unspecified; R53.83 Other fatigue; L29.9 Pruritus, unspecified; K59.00 Constipation, unspecified
CPT/HCPCS: 36415; 36416; 51702; 51798; 70450; 70544; 70551; 74018; 76770; 80048; 80053; 80061; 80306; 81001; 82306; 82310; 82550; 82570; 82652; 82728; 82962; 83036; 83520; 83540; 83550; 83735; 83883; 83970; 84100; 84155; 84156; 84165; 84300; 84443; 84550; 85025; 85378; 85610; 85730; 86036; 86038; 86160; 86162; 86704; 86706; 86803; 87086; 87340; 87806; 92507; 92523; 92526; 92610; 93005; 93306; 93880; 93970; 93978; 96365; 96366; 96372; 97110; 97116; 97161; 97166; 97530; 97535; 99285; C1750; C8924; J1100; J1644; J1940; J2405; J2704; J2916; J3010; J3490; J7030; Q3014; Q4081

== ENCOUNTER → 2022-02-20 11:44 | Outpatient (BNVA) | payer MEDICARE, SELFPAY | PROVIDERS: PCP Family Medicine; Referring Provider Internal Medicine; Visit Provider Specialist | DX: I69.398 Other sequelae of cerebral infarction (principal); R26.89 Other abnormalities of gait and mobility; I10 Essential (primary) hypertension; G47.33 Obstructive sleep apnea (adult) (pediatric); D32.0 Benign neoplasm of cerebral meninges | CPT/HCPCS: 99205 ==

== ENCOUNTER → 2022-03-20 14:49 | Outpatient (BNVA) | payer MEDICARE, SELFPAY | PROVIDERS: PCP Family Medicine; Visit Provider Family Medicine | DX: I63.9 Cerebral infarction, unspecified (principal); J45.909 Unspecified asthma, uncomplicated | CPT/HCPCS: 80053 ==

== ENCOUNTER 2022-03-28 06:00 | Outpatient (RCR) | payer MEDICARE, SELFPAY | END 2022-04-26 23:59 | disposition home or self-care (01) | LOC: SPT 06:00 | PROVIDERS: PCP Family Medicine; Visit Provider Family Medicine | DX: I63.9 Cerebral infarction, unspecified (principal) | CPT/HCPCS: 97110; 97112; 97162; 97530 ==

== ENCOUNTER → 2022-04-04 13:02 | Outpatient (BNVA) | payer MEDICARE, BC, SELFPAY | PROVIDERS: PCP Family Medicine; Visit Provider Nurse Practitioner Family | DX: I12.0 Hypertensive chronic kidney disease with stage 5 chronic kidney disease or end stage renal disease (principal); N18.5 Chronic kidney disease, stage 5; Z99.2 Dependence on renal dialysis; Z87.891 Personal history of nicotine dependence; I69.351 Hemiplegia and hemiparesis following cerebral infarction affecting right dominant side | CPT/HCPCS: 99213 ==

== ENCOUNTER 2022-04-07 06:00 | Outpatient (RCR) | payer MEDICARE, BC, SELFPAY | END 2022-04-26 23:59 | disposition home or self-care (01) | LOC: SOT 06:00 | PROVIDERS: PCP Family Medicine; Visit Provider Family Medicine | DX: R53.1 Weakness (principal) | CPT/HCPCS: 97018; 97110; 97140; 97166 ==

== ENCOUNTER 2022-04-27 06:00 | Outpatient (RCR) | payer MEDICARE, SELFPAY | END 2022-05-05 23:00 | disposition home or self-care (01) | LOC: SPT 06:00 | PROVIDERS: PCP Family Medicine; Visit Provider Family Medicine | DX: I63.9 Cerebral infarction, unspecified (principal) | CPT/HCPCS: 97110; 97112; 97530 ==

== ENCOUNTER 2022-04-27 06:00 | Outpatient (RCR) | payer MEDICARE, BC, SELFPAY | END 2022-05-27 23:59 | disposition home or self-care (01) | LOC: SOT 06:00 | PROVIDERS: PCP Family Medicine; Visit Provider Family Medicine | DX: R53.1 Weakness (principal) | CPT/HCPCS: 97018; 97110 ==

== ENCOUNTER 2022-06-05 15:14 | Emergency (ER) | payer MEDICARE, BC, SELFPAY ==
[2022-06-05] VITALS (20 sets, daily range): BP systolic 156–204; BP diastolic 78–97; PULSE 61–84; RESP 11–26; TEMP 36.5; O2SAT 98–100
--- NOTE | 2022-06-05 16:04 | W.ED.GENADLT ---
HPI - General Adult General: Chief complaint: General Medical Stated complaint: bp high Time Seen by Provider: 06/05/22 15:37 Source: patient Mode of arrival: ambulatory History of Present Illness: 51-year-old male with a history of end-stage renal disease on peritoneal dialysis presents emergency room with complaint of elevated blood pressure. She had several strokes in the past monitor his blood pressure fairly closely earlier today he had a reading as high as 210/115 no difficulty speech swallowing breathing or vision. No gait difficulties. He exchanges peritoneal fluid once daily. He currently is on carvedilol 25 twice daily clonidine 0.2 3 times daily losartan 50 p.o. daily which was just recently started and nifedipine 30 mg 3 tablets daily. He denies any decrease in medications recently they just started the losartan he denies any chest pain at this time. No nausea vomiting or diarrhea no recent illness. Onset (ago): hour(s) Relieving factors: none Exacerbating factors: none Associated symptoms: Deny chest pain, confusion, cough, diaphoresis, decreased appetite, dyspnea, fevers/chills, headache(s), malaise, nausea, rash, palpitations, seizures, short of breath, syncope, vomiting or weakness Treatments prior to arrival: none Review of Systems Const: Denies: fever(s), chills, malaise or diaphoresis ENMT: Denies: throat pain, ear or mastoid pain, nasal discharge or nasal congestion Card: Denies: chest pain, palpitations, irregular heart rhythm, edema, swelling of feet/ankles or syncope Resp: Denies: dyspnea, productive cough or non-productive cough GI: Denies: abdominal pain, nausea or vomiting : Denies: flank pain, dysuria, urinary frequency or urinary urgency Musc: Denies: neck pain or back pain Skin/Breast: Denies: rash or pruritus Neuro: Denies: headache(s) or confusion PFS ED PFSH: Medical History Accelerated hypertension KEL (acute kidney injury) Asthma Asthma Brain mass CKD (chronic kidney disease) stage 5, GFR less than 15 ml/min CVA (cerebral vascular accident) Gout Hypertension Left pontine stroke Meningioma, cerebral Surgical History No pertinent past surgical history Family History Other Hypertension Social History Smoking and tobacco status: former smoker Alcohol intake: never History of recent travel: No Physical Exam Const: GENERAL APPEARANCE: cooperative and comfortable ORIENTATION/CONSCIOUSNESS: Yes awake, Yes oriented to person, Yes oriented to place and Yes oriented to time HENMT: COMMON NORMALS: normocephalic, atraumatic and hearing grossly normal bilaterally HEAD & SCALP: normocephalic and atraumatic Resp: COMMON NORMALS: normal respiratory effort, No retractions, No use of accessory muscles and clear to auscultation bilaterally AUSCULTATION: clear to auscultation bilaterally Cardio: COMMON NORMALS: regular rate, regular rhythm and No murmurs present (Cardio) RATE: regular rate RHYTHM: regular rhythm GI: COMMON NORMALS: Soft to palpation and No hepatosplenomegaly present AUSCULTATION: Yes normoactive bowel sounds PALPATION: Yes Soft to palpation, No Tenderness to palpation present (GI), No Guarding due to palpation present (GI) and Yes No hepatosplenomegaly present Extremity: COMMON NORMALS: normal to inspection, capillary refill normal, no clubbing, cyanosis or edema, no calf tenderness and no pedal edema Neuro: SENSORIUM/ORIENTATION: Yes oriented to person, Yes oriented to place and Yes oriented to time Skin: COMMON NORMALS: no rashes or lesions noted GENERAL SKIN EXAM: no rashes or lesions noted Course Vital Signs: Vital signs: Vital Signs Temperature 97.7 F 06/05/22 15:28 Pulse Rate 72 06/05/22 17:20 Respiratory Rate 19 H 06/05/22 17:20 Blood Pressure 167/86 06/05/22 17:30 Pulse Oximetry 100 06/05/22 17:20 Oxygen Delivery Me thod 06/05/22 17:00 MDM - General Adult Medical Decision Making Blood pressure improved patient is feeling better. Continue peritoneal dialysis. We will start hydralazine. Blood pressures are improved. Follow-up with his ems educator or primary care within the week. Turn if is further problems. Medical Records I reviewed the patient's medical records. Lab Data I reviewed the patient's lab results. 06/05/22 15:54 06/05/22 15:54 Laboratory Results WBC 7.5 10^3/uL (4.0-10.0) 06/05/22 15:54 RBC 3.67 10^6/uL (4.1-5.3) L 06/05/22 15:54 Hgb 11.0 g/dL (11.7-16.6) L 06/05/22 15:54 Hct 33.2 % (42.0-52.0) L 06/05/22 15:54 MCV 90.5 fl (80-94) 06/05/22 15:54 MCH 30.0 pg (28.0-34.0) 06/05/22 15:54 MCHC 33.1 g/dL (30.0-36.0) 06/05/22 15:54 RDW 14.1 % (12.1-15.1) 06/05/22 15:54 Plt Count 191 10^3/cmm (130-400) 06/05/22 15:54 MPV 9.6 fL (7.4-10.4) 06/05/22 15:54 Neut % (Auto) 65.3 % 06/05/22 15:54 Lymph % (Auto) 17.6 % 06/05/22 15:54 [place] % (Auto) 10.3 % 06/05/22 15:54 Eos % (Auto) 6.1 % 06/05/22 15:54 Baso % (Auto) 0.4 % 06/05/22 15:54 Neut # (Auto) 4.92 10^3/uL (1.8-7.7) 06/05/22 15:54 Lymph # (Auto) 1.3 10^3/uL (0.8-4.8) 06/05/22 15:54 [place] # (Auto) 0.8 10^3/uL (0.2-0.9) 06/05/22 15:54 Eos # (Auto) 0.5 10^3/uL (0.0-0.8) 06/05/22 15:54 Baso # (Auto) 0.0 10^3/uL (0.0-0.1) 06/05/22 15:54 Nucleated RBC % (auto) 0 % 06/05/22 15:54 Nucleated RBCs # 0.0 /100WBC 06/05/22 15:54 Sodium 138 mmol/L (136-145) 06/05/22 15:54 Potassium 3.9 mmol/L (3.5-5.1) 06/05/22 15:54 Chloride 102 mmol/L (98-107) 06/05/22 15:54 Carbon Dioxide 22 mmol/L (22-29) 06/05/22 15:54 Anion Gap 17.9 (5-19) 06/05/22 15:54 BUN 76 mg/dL (6-20) H 06/05/22 15:54 Creatinine 5.1 mg/dL (0.7-1.2) H 06/05/22 15:54 GFR Calculation 11.9 mL/min (90-130) L 06/05/22 15:54 Glucose 95 mg/dL (65-115) 06/05/22 15:54 Calculated Osmolality 308 mOsm/kg (285-295) H 06/05/22 15:54 Calcium 8.9 mg/dL (8.5-10.5) 06/05/22 15:54 Discharge Plan Discharge Patient Disposition: Home Clinical Impression: CKD (chronic kidney disease) stage 5, GFR less than 15 ml/min Hypertension Qualifiers: Hypertension type: primary hypertension Qualified Code(s): I10 - Essential (primary) hypertension Condition: Stable Prescriptions: New hydralazine 25 mg tablet 25 mg PO TID Qty: 90 0RF No Action RenaPlex-D 800 mcg-12.5 mg -2,000 unit tablet 1 tab PO DAILY albuterol sulfate [ProAir HFA] 90 mcg/actuation HFA aerosol inhaler 2 puff inhalation 6XD PRN (Reason: shortness of breath or wheezing) Qty: 8.5 0RF citalopram [Celexa] 10 mg tablet 10 mg PO DAILY Qty: 30 0RF clonazepam [Klonopin] 0.5 mg tablet 0.5 mg PO BID Qty: 20 0RF clonidine HCl 0.2 mg tablet 0.2 mg PO TID Qty: 90 1RF nifedipine 30 mg tablet extended release 24hr 90 mg PO DAILY 30 Days Qty: 30 3RF aspirin 81 mg Tablet,Delayed Release (Dr/Ec) 81 mg PO DAILY 30 Days Qty: 30 3RF sevelamer carbonate 800 mg Tablet 1,600 mg PO TID 30 Days Qty: 180 3RF losartan 50 mg Tablet 50 mg PO BEDTIME atorvastatin 40 mg tablet 40 mg PO DAILY@1200 carvedilol 25 mg tablet 25 mg PO BID Discharge Orders: Discharge ED (Routine); Ordered 06/05/22 Ordered By: Luke Posada Referrals: Eun Masterson DO [Primary Care Provider] - Discharge Diet: Usual diet Discharge Activity: Increase activity as tolerated Patient Instructions: Opioid Safety, Pain Management Activity Restrictions/Additional Instructions: You were seen today for elevated blood pressure. Your blood pressure did respond nicely to hydralazine. You are given a prescription for hydralazine 25 mg 1 p.o. 3 times daily. Recheck your blood pressure with your primary care doctor or your ems educator within the next 7 to 10 days Coding Level of Care Code ED Security Installation Technician for Wilfrid Fwd Exam Detailed
[2022-06-05] MEDS: hyDRALAzine 20 mg/mL INJ 1 mL IVP (16:06)
[2022-06-05 16:07] LABS: Basophils % 0.4 %; Eosinophils # 0.5 10^3/uL (0.0-0.8); Eosinophils % 6.1 %; Hematocrit 33.2 % (42.0-52.0); Lymphocytes # 1.3 10^3/uL (0.8-4.8); Lymphocytes % 17.6 %; Mean Corpuscular HGB Conc 33.1 g/dL (30.0-36.0); Mean Corpuscular Volume 90.5 fl (80-94); Mean Platelet Volume 9.6 fL (7.4-10.4); Monocytes # 0.8 10^3/uL (0.2-0.9); Monocytes % 10.3 %; Neutrophils # 4.92 10^3/uL (1.8-7.7); Neutrophils % 65.3 %; Nucleated Red Blood Cells % 0 %; Platelet Count 191 10^3/cmm (130-400); Red Blood Count 3.67 10^6/uL (4.1-5.3); Red Cell Distribution Width 14.1 % (12.1-15.1); White Blood Count 7.5 10^3/uL (4.0-10.0)
[2022-06-05 16:24] LABS: Anion Gap 17.9 (5-19); Blood Urea Nitrogen 76 mg/dL (6-20); Calcium 8.9 mg/dL (8.5-10.5); Carbon Dioxide 22 mmol/L (22-29); Chloride 102 mmol/L (98-107); Glomerular Filtration Rate 11.9 mL/min (90-130); Glucose 95 mg/dL (65-115); Osmolality Calculated 308 mOsm/kg (285-295); Potassium 3.9 mmol/L (3.5-5.1); Sodium 138 mmol/L (136-145)
--- NOTE | 2022-06-05 16:40 | ECG_ITS ---
[facility] Test Date: 2022-06-05 Pat Name: Greg Hong Department: Room: Gender: Male Property Damage Claims Adjustor: : 1970 Requested By: Luke Simmons Order Number: [id number] Elpidio MD: Conchita Crowley M.D. Measurements Intervals [place] Rate: 68 P: 65 [place]: 203 QRS: -9 QRSD: 110 T: 60 QT: 446 QTc: 477 Interpretive Statements SINUS RHYTHM POSSIBLE LEFT ATRIAL ENLARGEMENT [-0.1mV P-WAVE IN V1/V2] INCOMPLETE RIGHT BUNDLE BRANCH BLOCK [90+ ms QRS DURATION, TERMINAL R IN V1/V2, 40+ ms S IN I/aVL/V4/V5/V6] SEPTAL MYOCARDIAL INFARCTION , OF INDETERMINATE AGE [40+ ms Q WAVE IN V1/V2] Compared to ECG 01/27/2022 09:37:43 Incomplete right bundle-branch block now present Myocardial infarct finding now present Sinus tachycardia no longer present T-wave abnormality no longer present Electronically Signed On 06-05-2022 20:33:06 HR SYSTEMS ANALYST by Conchita rCowley M.D. [id number]
== END 2022-06-05 17:34 | disposition home or self-care (01) ==
PROVIDERS: Emergency Provider Family Medicine; PCP Family Medicine
DX: I12.0 Hypertensive chronic kidney disease with stage 5 chronic kidney disease or end stage renal disease (principal); N18.5 Chronic kidney disease, stage 5; Z86.73 Personal history of transient ischemic attack (TIA), and cerebral infarction without residual deficits; Z87.891 Personal history of nicotine dependence; Z79.82 Long term (current) use of aspirin
CPT/HCPCS: 80048; 85025; 93005; 96374; 99284; J0360

== ENCOUNTER → 2022-06-19 11:02 | Outpatient (BNVA) | payer MEDICARE, BC, SELFPAY | PROVIDERS: PCP Family Medicine; Visit Provider Specialist | DX: I69.351 Hemiplegia and hemiparesis following cerebral infarction affecting right dominant side (principal); D32.0 Benign neoplasm of cerebral meninges; I10 Essential (primary) hypertension; Z87.891 Personal history of nicotine dependence; Z91.81 History of falling; F41.9 Anxiety disorder, unspecified | CPT/HCPCS: 99214 ==

== ENCOUNTER → 2022-07-05 11:57 | Outpatient (BNVA) | payer MEDICARE, BC, SELFPAY | PROVIDERS: PCP Family Medicine; Visit Provider Internal Medicine Cardiovascular Disease | DX: I12.0 Hypertensive chronic kidney disease with stage 5 chronic kidney disease or end stage renal disease (principal); N18.5 Chronic kidney disease, stage 5; Z87.891 Personal history of nicotine dependence; I69.359 Hemiplegia and hemiparesis following cerebral infarction affecting unspecified side; F41.1 Generalized anxiety disorder; D32.0 Benign neoplasm of cerebral meninges | CPT/HCPCS: 99214 ==

== ENCOUNTER 2022-07-19 13:32 | Outpatient (CLI) | payer MEDICARE, BC, SELFPAY ==
--- NOTE | 2022-07-19 13:45 | MR_ITS ---
WS: [id number] MRI BRAIN WITHOUT CONTRAST HISTORY: G35 - Multiple sclerosis COMPARISON: Prior CT 2021 and MRI brain 02/02/2022 TECHNIQUE: Diffusion imaging, multiplanar T1, T2 and FLAIR imaging obtained. No diffusion-weighted abnormalities are identified on today's exam. Increased T2 signal bilaterally i n the middle cerebellar peduncles and along the anterior LEFT medulla. Increased T2 signal within the edilson bilaterally with a prior LEFT lacunar infarct. Increasing T2 signal along the callosal septal i nterface bilaterally. There are numerous white matter lesions, some of these are oriented perpendicul ar to the corpus callosum. These findings are consistent with demyelination such as multiple sclerosi s. There are additional scattered T2 and FLAIR signal hyperintensities which are round and scattered throughout the white matter which are probably superimposed small vessel ischemic disease. Some of th javier contain hemosiderin. No large territory prior infarct. Ventricles and extra-axial spaces are normal. No inferior displacement of the cerebellar tonsils. Sella turcica is negative. There is an additional mass which is been previously described along the anterior LEFT interhemispher ic falx. Variable signal related to calcium deposition. This mass appears to be extra-axial and cross es the midline measuring 2.6 x 2.6 cm. Most consistent with a meningioma that was also described on t he noncontrast head CT. Paranasal sinuses: Clear. Mastoid air cells: Normal. Calvarium and scalp: Intact. MR/MR head wo con* [id number] IMPRESSION: 1. No acute infarcts. 2. Extensive white matter lesions, predominantly in a bilateral callosal septa l distribution, bilateral middle cerebellar peduncles and brainstem. Findings a re suspicious for multiple sclerosis. Unfortunately due to patient's renal fail ure contrast was not able to be given. 3. LEFT frontal parafalcine mass. Most consistent with a meningioma measuring 2.6 x 2.6 cm.
== END 2022-07-19 13:33 | disposition home or self-care (01) ==
LOC: RAD 13:38
PROVIDERS: PCP Family Medicine; Visit Provider Specialist
DX: G35 Multiple sclerosis (principal); G93.9 Disorder of brain, unspecified
CPT/HCPCS: 70551

== ENCOUNTER → 2022-07-24 08:05 | Outpatient (BNVA) | payer MEDICARE, BC, SELFPAY | PROVIDERS: PCP Family Medicine; Visit Provider Specialist | DX: G37.9 Demyelinating disease of central nervous system, unspecified (principal); I69.351 Hemiplegia and hemiparesis following cerebral infarction affecting right dominant side | CPT/HCPCS: 36415; 62270; 80503; 82040; 82042; 82784; 82945; 83873; 83916; 84157; 87070; 87075; 87205; 89050; 99213 ==

== ENCOUNTER → 2022-08-10 10:49 | Outpatient (BNVA) | payer MEDICARE, BC, SELFPAY | PROVIDERS: PCP Family Medicine; Visit Provider Specialist | DX: I69.351 Hemiplegia and hemiparesis following cerebral infarction affecting right dominant side (principal); G37.9 Demyelinating disease of central nervous system, unspecified | CPT/HCPCS: 64642; 95911; 99213; J0585 ==

== ENCOUNTER → 2022-09-08 11:34 | Outpatient (BNVA) | payer MEDICARE, BC, SELFPAY | PROVIDERS: PCP Family Medicine; Referring Provider Specialist; Visit Provider Student in an Organized Health Care Education/Training Program | DX: M17.11 Unilateral primary osteoarthritis, right knee (principal) | CPT/HCPCS: 20610; 73560; 73565; 99204; J3301 ==

== ENCOUNTER 2022-09-20 06:00 | Outpatient (CLI) | payer MEDICARE, BC, SELFPAY | END 2022-09-20 06:01 | disposition home or self-care (01) | LOC: SPT 09-21 09:14 | PROVIDERS: PCP Family Medicine; Visit Provider Student in an Organized Health Care Education/Training Program | DX: Z46.89 Encounter for fitting and adjustment of other specified devices (principal); M25.561 Pain in right knee | CPT/HCPCS: 97760; L1851 ==

== ENCOUNTER 2022-11-20 16:49 | Outpatient (CLI) | payer MEDICARE, BC, SELFPAY ==
--- NOTE | 2022-11-20 16:57 | CT_ITS ---
WS: [id number] CT ABDOMEN AND PELVIS NONCONTRAST HISTORY: ABDOMINAL AND PELVIC SWELLING MASS AND LUMP, PERIUMBILICAL TECHNIQUE: Imaging performed through the abdomen and pelvis. Coronal and sagittal reformats are submi tted. All CT scans at [facility] [place] use at least one of these dose optimization techniques: auto mated exposure control; mA and/or kV adjustment per patient size (includes targeted exams where dose is matched to clinical indication); or iterative reconstruction. DLP: 462.47 mGy.cm COMPARISON: None available. Lower thorax: Lung bases are clear. Visualized heart is normal. Small hiatal hernia. Liver: Normal size liver. No mass or bile duct dilatation. Gallbladder: Mildly contracted gallbladder. May be due to nonfasting state. No adjacent inflammation. Pancreas: Normal size and attenuation. Normal pancreatic duct. No pancreatitis or mass. Spleen: Normal. Adrenal glands: Normal. No mass. Right kidney: Moderate atrophy. Kidney measures 7.6 cm in length. Renal artery calcifications. No obs truction. Left kidney: Mild atrophy, 9.0 cm in length. Renal artery calcifications. No obstruction. Aorta: Mild atherosclerosis abdominal aorta with no aneurysm. Peritoneal dialysis catheter enters the LEFT abdomen with the catheter coiled in the pelvis. No free fluid, intraperitoneal air or significant lymphadenopathy. GI tract: No obstruction. Moderate constipation. Anastomotic sutures are noted in the RIGHT lower katherine drant. The appendix is not identified. No history of appendectomy. Abdominal wall: Very tiny abdominal wall hernia. There is a very minimal inflammation and soft tissue thickening at the umbilicus. No protrusion of GI tract. No soft tissue mass identified. Pelvis: Small amount of free fluid is probably related to the peritoneal dialysis. The visualized yang dder is normal. Osseous structures: Curvature lumbar spine. CT/CT abdomen pelvis wo con [id number] IMPRESSION: 1. No acute abdominal or pelvic abnormalities are identified. 2. No periumbilical mass. There is a very tiny fat-containing hernia and mild soft tissue thickening at the umbilicus but no mass. 3. Peritoneal dialysis catheter with a small amount of free fluid in the pelvi s. 4. Diffuse constipation. 5. Bilateral renal atrophy.
== END 2022-11-20 16:50 | disposition home or self-care (01) ==
PROVIDERS: PCP Family Medicine; Visit Provider Internal Medicine Nephrology
DX: R19.00 Intra-abdominal and pelvic swelling, mass and lump, unspecified site (principal); R19.05 Periumbilic swelling, mass or lump; R22.9 Localized swelling, mass and lump, unspecified; K42.9 Umbilical hernia without obstruction or gangrene
CPT/HCPCS: 74176

== ENCOUNTER → 2022-12-07 15:36 | Outpatient (BNVA) | payer MEDICARE, BC, SELFPAY | PROVIDERS: PCP Family Medicine; Visit Provider Specialist | DX: I69.351 Hemiplegia and hemiparesis following cerebral infarction affecting right dominant side (principal); G37.9 Demyelinating disease of central nervous system, unspecified; F40.231 Fear of injections and transfusions | CPT/HCPCS: 64642; 99213; J0585 ==

== ENCOUNTER → 2022-12-11 13:58 | Outpatient (BNVA) | payer MEDICARE, BC, SELFPAY | PROVIDERS: PCP Family Medicine; Visit Provider Student in an Organized Health Care Education/Training Program | DX: M17.11 Unilateral primary osteoarthritis, right knee (principal) | CPT/HCPCS: 99213 ==

== ENCOUNTER 2023-02-18 10:08 | Emergency (ER) | payer MEDICARE, BC, SELFPAY ==
[2023-02-18 10:20] VITALS: BP 123/71; PULSE 67; RESP 15; TEMP 36.5; O2SAT 98
--- NOTE | 2023-02-18 10:23 | XRR_ITS ---
PROCEDURE INFORMATION: Exam: XR Abdomen Exam date and time: 02/18/2023 10:34 AM Age: 52 years old Clinical indication: Constipation TECHNIQUE: Imaging protocol: Radiologic exam of the abdomen. Views: Frontal supine view of the abdomen. 1 View. COMPARISON: CT abdomen pelvis wo con [id number] 11/20/2022 5:01 PM FINDINGS: Gastrointestinal tract: Large amount of stool throughout the colon and rectum. Fecal impaction not excluded Bones/joints: Unremarkable. XR/XR KUB [id number] IMPRESSION: Large amount of stool throughout the colon and rectum. Fecal impaction not excluded
--- NOTE | 2023-02-18 11:08 | W.ED.ABDPA2 ---
HPI - Abdominal Pain General: Chief Complaint: Abdominal Pain Stated Complaint: cant use the bathroom Time Seen by Provider: 02/18/23 10:37 Source: patient and family Mode of arrival: ambulatory Limitations: no limitations History of Present Illness: 52-year-old male with a history of renal failure and on dialysis and chronic constipation presents to the ER today for no bowel movement x4 days. Patient reports worsening abdominal discomfort. Patient takes daily medications for constipation including lactulose and a stool softener. Patient reports he is done 1 enema at home however the box read not to do more than 1 so that is always done. He denies any nausea or vomiting. He reports abdominal tenderness and swelling all over. His concern is that if his constipation is too bad he was warned by his cleaning specialist that it can cause the dialysis tubing to become obstructed and he wants to avoid that. Review of Systems General: Reports: 10 or more systems reviewed and unremarkable except in HPI and below PFSH ED PFSH: Medical History Accelerated hypertension KEL (acute kidney injury) Asthma Asthma Brain mass CKD (chronic kidney disease) stage 5, GFR less than 15 ml/min CVA (cerebral vascular accident) Gout Hypertension Left pontine stroke Meningioma, cerebral Surgical History No pertinent past surgical history Family History Other Hypertension Social History Smoking and tobacco status: former smoker Alcohol intake: never Substance/Drug Use: never Physical Exam Const: COMMON NORMALS: patient oriented x3, alert and well nourished Eye: COMMON NORMALS: conjunctivae normal CONJUNCTIVA: Yes conjunctivae normal Resp: COMMON NORMALS: normal respiratory effort and clear to auscultation bilaterally AUSCULTATION: clear to auscultation bilaterally Cardio: COMMON NORMALS: regular rate, regular rhythm and No murmurs present (Cardio) RATE: regular rate RHYTHM: regular rhythm GI: OTHER: Patient is distended with tenderness across the entire abdomen. There are positive bowel sounds in all 4 quadrants. Extremity: COMMON NORMALS: normal to inspection and no pedal edema Neuro: COMMON NORMALS: patient oriented x3 SENSORIUM/ORIENTATION: Yes alert Psych: COMMON NORMALS: mental status grossly normal, Normal thought process present and cooperative THOUGHT PROCESS: Normal thought process present Skin: COMMON NORMALS: no rashes or lesions noted and no wounds GENERAL SKIN EXAM: no rashes or lesions noted Course ED course: Patient presents to the ER for constipation. This is a chronic issue however he has not gone down for days. Typically patient goes every 2 days or so. Patient takes home medications for constipation including lactulose and a daily stool softener. Patient reports he is done 1 enema however since he did not go without 1 enema he came to the ER because it said not to do more than 1. Patient noted to be distended and slightly uncomfortable. No nausea or vomiting reported. We will get a KUB at this time to rule out obstruction. Consultations: Consultation #1: Discussed patient with Dr. Strong. Recommended continued enemas and would recommend a mineral oil enema to help with lubrication. Continue other home meds Time: 11:12 Vital Signs: Vital signs: Vital Signs Temperature 97.7 F 02/18/23 10:20 Pulse Rate 67 02/18/23 10:20 Respiratory Rate 15 02/18/23 10:20 Blood Pressure 123/71 02/18/23 10:20 Pulse Oximetry 98 02/18/23 10:20 Oxygen Delivery Me thod Room Air 02/18/23 10:20 MDM - Abdominal Pain Medical Decision Making KUB indicates large amount of stool throughout the colon and rectum with a possible fecal impaction. No obvious signs of obstruction. Discussed with patient that he needs to continue to do the enemas at home. I would recommend a mineral oil enema to help with the possible impaction. Recommended to continue to push fluids. Continue home medications for constipation. If patient is unable to go next 24 hours I would recommend him contact his PCP. For any new or worsening symptoms including nausea or vomiting, return to the ER. Patient verbalized understanding and was in agreement with the treatment plan. Lab Data Labs/Radiology: Radiology Impressions KUB X-Ray 02/18/23 10:23 IMPRESSION: Large amount of stool throughout the colon and rectum. Fecal impaction not excluded All radiology interpretation(s) finalized by discharge Critical Care Time Critical Care Time: Critical Care Time: No Discharge Plan Discharge Patient Disposition: Home Clinical Impression: Chronic constipation Condition: Stable Prescriptions: No Action RenaPlex-D 800 mcg-12.5 mg -2,000 unit tablet 1 tab PO DAILY albuterol sulfate [ProAir HFA] 90 mcg/actuation HFA aerosol inhaler 2 puff inhalation 6XD PRN (Reason: shortness of breath or wheezing) Qty: 8.5 0RF losartan 100 mg tablet 100 mg PO DAILY hydralazine 50 mg tablet 50 mg PO TID Qty: 270 1RF clonidine HCl 0.1 mg tablet 0.1 mg PO BID Qty: 180 1RF clonidine HCl 0.2 mg tablet 0.2 mg PO DAILY Qty: 90 1RF (DME) medial finishing range operator brace See Rx Instructions .Route .MEDSUPPLY Qty: 1 0RF Rx Instructions: As directed clonazepam [Klonopin] 0.5 mg tablet 0.5 mg PO BID PRN (Reason: anxiety) Qty: 180 1RF Rx Instructions: for Dr. Masterson torsemide 10 mg tablet See Rx Instructions .ROUTE .COMPLEX Qty: 90 0RF Dose Instruction: TAKE 1 TABLET EVERY DAY Rx Instructions: TAKE 1 TABLET EVERY DAY sevelamer carbonate 800 mg tablet See Rx Instructions .ROUTE .COMPLEX Qty: 180 3RF Dose Instruction: TAKE 2 TABLETS BY MOUTH THREE TIMES DAILY FOR 30 DAYS Rx Instructions: TAKE 2 TABLETS BY MOUTH THREE TIMES DAILY FOR 30 DAYS atorvastatin 40 mg tablet 40 mg PO DAILY@1200 Qty: 90 1RF nifedipine 30 mg tablet extended release 24hr See Rx Instructions .ROUTE .COMPLEX Qty: 270 2RF Dose Instruction: TAKE 3 TABLETS BY MOUTH EVERY DAY Rx Instructions: TAKE 3 TABLETS BY MOUTH EVERY DAY carvedilol 25 mg tablet 25 mg PO BID Qty: 180 1RF citalopram 10 mg tablet 10 mg PO DAILY Qty: 90 0RF Rx Instructions: Please disregard prior Rx aspirin 81 mg Tablet,Delayed Release (Dr/Ec) 81 mg PO DAILY 30 Days Qty: 30 3RF Discharge Orders: Discharge ED (Routine); Ordered 02/18/23 Ordered By: Raiza Scanlon Referrals: Eun Masterson DO [Primary Care Provider] - Discharge Diet: Usual diet Discharge Activity: Increase activity as tolerated Patient Instructions: Opioid Safety, Pain Management Activity Restrictions/Additional Instructions: Recommend enemas and suppositories. Watch for worsening signs including nausea and vomiting. Continue home medications for constipation. Follow-up with PCP in the next 24 to 48 hours if no improvement. Coding Level of Care Code ED Cover Cutter Machine for Wilfrid Osorio
== END 2023-02-18 11:58 | disposition home or self-care (01) ==
PROVIDERS: Emergency Provider Physician Assistant; PCP Family Medicine
DX: K59.09 Other constipation (principal); Z79.82 Long term (current) use of aspirin; Z87.891 Personal history of nicotine dependence; I12.0 Hypertensive chronic kidney disease with stage 5 chronic kidney disease or end stage renal disease; N18.5 Chronic kidney disease, stage 5; Z86.73 Personal history of transient ischemic attack (TIA), and cerebral infarction without residual deficits
CPT/HCPCS: 74018; 99283

== ENCOUNTER → 2023-08-16 08:04 | Outpatient (BNVA) | payer MEDICARE, BC, SELFPAY | PROVIDERS: PCP Family Medicine; Visit Provider Physician Assistant | DX: M17.11 Unilateral primary osteoarthritis, right knee | CPT/HCPCS: 20610; 73560; 73565; 99213; J3301 ==

== ENCOUNTER → 2023-12-31 09:50 | Outpatient (BNVA) | payer MEDICARE, BC, SELFPAY | PROVIDERS: PCP Family Medicine; Visit Provider Nurse Practitioner Family | DX: L70.0 Acne vulgaris (principal); L29.8 Other pruritus; L73.8 Other specified follicular disorders; N18.6 End stage renal disease; D22.4 Melanocytic nevi of scalp and neck; L81.4 Other melanin hyperpigmentation | CPT/HCPCS: 99204 ==

== ENCOUNTER → 2024-06-18 15:18 | Outpatient (BNVA) | payer MEDICARE, BC, SELFPAY | PROVIDERS: PCP Family Medicine; Visit Provider Nurse Practitioner Family | DX: L23.9 Allergic contact dermatitis, unspecified cause (principal); S80.921A Unspecified superficial injury of right lower leg, initial encounter; S80.922A Unspecified superficial injury of left lower leg, initial encounter; S50.912A Unspecified superficial injury of left forearm, initial encounter; S50.911A Unspecified superficial injury of right forearm, initial encounter | CPT/HCPCS: 99213 ==

== ENCOUNTER → 2024-07-24 15:16 | Outpatient (BNVA) | payer MEDICARE, BC, SELFPAY | PROVIDERS: PCP Family Medicine; Visit Provider Nurse Practitioner Family | DX: L23.9 Allergic contact dermatitis, unspecified cause (principal); S80.921A Unspecified superficial injury of right lower leg, initial encounter; S80.922A Unspecified superficial injury of left lower leg, initial encounter; S50.912A Unspecified superficial injury of left forearm, initial encounter; S50.911A Unspecified superficial injury of right forearm, initial encounter; X58.XXXA Exposure to other specified factors, initial encounter; L21.8 Other seborrheic dermatitis | CPT/HCPCS: 99214 ==

== ENCOUNTER → 2024-11-11 08:38 | Outpatient (BNVA) | payer MEDICARE, BC, SELFPAY | PROVIDERS: PCP Family Medicine; Visit Provider Nurse Practitioner Family | DX: L21.8 Other seborrheic dermatitis (principal); L70.0 Acne vulgaris; L73.8 Other specified follicular disorders; L98.8 Other specified disorders of the skin and subcutaneous tissue | CPT/HCPCS: 99214 ==

== ENCOUNTER → 2024-12-09 09:18 | Outpatient (BNVA) | payer MEDICARE, BC, SELFPAY | PROVIDERS: PCP Family Medicine; Visit Provider Physician Assistant | DX: M17.11 Unilateral primary osteoarthritis, right knee (principal); M25.569 Pain in unspecified knee | CPT/HCPCS: 20610; 73560; 73565; 99213; J3301; J9999 ==